=== PATIENT | female | born 1945 | race Caucasian/White ===

== ENCOUNTER 2022-08-03 15:08 | Outpatient (REF) | payer OTHER, SELFPAY ==
--- NOTE | ~2022-08-03 | XR_ITS ---
EXAMINATION: XR FOOT, LEFT CLINICAL INFORMATION: Contusion COMPARISON: None TECHNIQUE: AP, lateral, and oblique views of the left foot. FINDINGS: Large calcaneal spurs. The bones and soft tissues are otherwise normal. No fracture. Alignment is anatomic. Joint spaces are maintained. XR/XR foot LT min 3V IMPRESSION: No acute findings. Calcaneal spurs.
== END 2022-08-03 15:09 | disposition home or self-care (01) ==
LOC: HO.HMGCX 15:08
PROVIDERS: Visit Provider Internal Medicine
DX: S90.32XA Contusion of left foot, initial encounter (principal)
CPT/HCPCS: 73630

== ENCOUNTER 2022-10-26 08:48 | Outpatient (REF) | payer OTHER, SELFPAY ==
[2022-10-26 11:54] LABS: Hematocrit 41.6 % (37.0-47.0); Hemoglobin 13.4 g/dl (12.0-16.0); Mean Corpuscular HGB Conc 32.2 g/dl (31.0-35.0); Mean Corpuscular Hemoglobin 29.6 pg (27.0-33.0); Mean Platelet Volume 10.9 fL (9.4-12.3); Platelet Count 408 X10*3/uL (160-400); Red Blood Count 4.52 X10*6/uL (4.20-5.50); White Blood Count 6.6 X10*3/uL (4.8-10.8)
[2022-10-26 12:15] LABS: Alanine Aminotransferase 14 U/L (0-31); Albumin Level 4.2 g/dL (3.5-5.0); Alkaline Phosphatase 68 U/L (39-117); Anion Gap 12 (12-20); Aspartate Amino Transferase 17 U/L (5-31); Bilirubin Total 0.9 mg/dL (0.0-1.0); Blood Urea Nitrogen 19 mg/dL (9-16); Calcium 9.5 mg/dL (8.4-10.2); Carbon Dioxide 27 mmol/L (22-29); Chloride 106 mmol/L (96-108); Cholesterol 202 mg/dL; Estimated Glomerular Filt Rate 55; Glucose Fasting 118 mg/dL (60-99); HDL Cholesterol 68 mg/dL; LDL Cholesterol Calculated 123 mg/dl; Potassium 4.4 mmol/L (3.3-5.1); Sodium 141 mmol/L (135-145); Triglycerides 59 mg/dL
[2022-10-26 12:43] LABS: TSH reflex Free T4 2.79 uIU/mL (0.32-4.0); Vitamin D 25-OH Total 25.2 ng/mL (>30)
== END 2022-10-26 08:49 | disposition home or self-care (01) ==
LOC: HO.HMGCLDS 08:48
PROVIDERS: PCP Nurse Practitioner Family; Visit Provider Nurse Practitioner Family
DX: Z00.00 Encounter for general adult medical examination without abnormal findings (principal); E55.9 Vitamin D deficiency, unspecified
CPT/HCPCS: 36415; 80053; 80061; 82306; 84443; 85027

== ENCOUNTER 2022-11-09 13:42 | Outpatient (REF) | payer OTHER, SELFPAY ==
--- NOTE | ~2022-11-09 | MM_ITS ---
EXAMINATION: MM SCREENING DIGITAL BREAST TOMOSYNTHESIS, BILATERAL CLINICAL INFORMATION: Screening. Asymptomatic. The lifetime risk of breast cancer based on the Tyrer-Cuzick Model is 2%. COMPARISON: Outside mammography: 07/03/2018, 06/27/2017, 06/21/2016 ([place]) TECHNIQUE: Digital breast tomosynthesis is performed in both the craniocaudal and mediolateral oblique views along with computer-aided detection (CAD). Synthesized 2D images are generated from the tomosynthesis. FINDINGS: There are scattered areas of fibroglandular density (ACR BI-RADS breast composition Category b). Parenchymal pattern is similar to prior outside exams. Fine fibronodular parenchymal pattern with some minor asymmetries are stable. There is no significant mass, developing density, abnormal calcifications, or architectural abnormality. There are some scattered dermal lesions again noted overlying the breasts. The axilla are unremarkable. No significant changes. MM/MM tomosynthesis screening BI IMPRESSION: No mammographic evidence of malignancy. ASSESSMENT: BI-RADS 2: Benign RECOMMENDATION: Routine annual mammography screening. This patient's information was entered into a reminder system with a target due date for their next mammogram.
== END 2022-11-09 13:43 | disposition home or self-care (01) ==
LOC: HO.MAMMO 13:42
PROVIDERS: PCP Nurse Practitioner Family; Visit Provider Nurse Practitioner Family
DX: Z12.31 Encounter for screening mammogram for malignant neoplasm of breast (principal)
CPT/HCPCS: 77063; 77067

== ENCOUNTER 2022-11-16 07:22 | Outpatient (REF) | payer OTHER, SELFPAY ==
[2022-11-16 11:32] LABS: MANUAL DIFF FLAG NO
[2022-11-16 11:49] LABS: Basophils Absolute Auto 0.1 X10*3/uL (0.0-0.2); Basophils Percent Auto 0.7 % (0-2); Eosinophils Absolute Auto 0.2 X10*3/uL (0.0-0.4); Eosinophils Percent Auto 2.2 % (0-4); Hematocrit 38.7 % (37.0-47.0); Hemoglobin 12.4 g/dl (12.0-16.0); Imm Gran Abs Auto 0.01 X10*3/uL (0.00-0.03); Imm Gran Pct Auto 0.1 % (0.0-0.4); Lymphocytes Absolute Auto 2.8 X10*3/uL (1.2-4.9); Lymphocytes Percent Auto 39.8 % (20-40); Mean Corpuscular Hemoglobin 29.8 pg (27.0-33.0); Monocytes Absolute Auto 0.6 X10*3/uL (0.1-1.2); Monocytes Percent Auto 8.8 % (2-11); Neutrophils Absolute Auto 3.4 x10*3/uL (2.0-8.3); Neutrophils Percent Auto 48.4 % (45-73); Platelet Count 324 X10*3/uL (160-400); Red Blood Count 4.16 X10*6/uL (4.20-5.50); Red Cell Distribution Width 14.7 % (11.0-16.0); White Blood Count 6.9 X10*3/uL (4.8-10.8)
== END 2022-11-16 07:23 | disposition home or self-care (01) ==
LOC: HO.HMGCLDS 07:22
PROVIDERS: PCP Nurse Practitioner Family; Visit Provider Nurse Practitioner Family
DX: K92.1 Melena (principal)
CPT/HCPCS: 36415; 85025

== ENCOUNTER 2022-11-18 07:24 | Outpatient (REF) | payer OTHER, SELFPAY ==
[2022-11-18 12:01] LABS: Hematocrit 39.3 % (37.0-47.0); Hemoglobin 12.3 g/dl (12.0-16.0); Mean Corpuscular HGB Conc 31.3 g/dl (31.0-35.0); Mean Corpuscular Hemoglobin 28.7 pg (27.0-33.0); Mean Corpuscular Volume 91.8 fL (80.0-98.0); Mean Platelet Volume 10.8 fL (9.4-12.3); Platelet Count 335 X10*3/uL (160-400); Red Blood Count 4.28 X10*6/uL (4.20-5.50); Red Cell Distribution Width 14.9 % (11.0-16.0); White Blood Count 7.1 X10*3/uL (4.8-10.8)
== END 2022-11-18 07:25 | disposition home or self-care (01) ==
LOC: HO.HMGCLDS 07:24
PROVIDERS: PCP Nurse Practitioner Family; Visit Provider Nurse Practitioner Family
DX: K92.1 Melena (principal)
CPT/HCPCS: 36415; 85027

== ENCOUNTER → 2022-11-30 09:32 | Outpatient (BNVA) | payer OTHER, SELFPAY | PROVIDERS: PCP Nurse Practitioner Family; Visit Provider Physician Assistant | DX: K92.1 Melena (principal) | CPT/HCPCS: 99202 ==

== ENCOUNTER 2022-12-08 10:09 | Outpatient (REF) | payer OTHER, SELFPAY ==
--- NOTE | ~2022-12-08 | MM_ITS ---
EXAMINATION: BONE DENSITOMETRY CLINICAL INDICATION: Screening for osteoporosis. COMPARISON: None (current study represents initial baseline exam). TECHNIQUE: Using a [employer] DXA System (software version: 13.1) manufactured by [employer], dual-energy x-ray absorptiometry was performed of the lumbar spine and left hip. The images are of good technical quality. Summary results are attached. FINDINGS: AP SPINE L1-L4: BMD 1.070 g/cm2, Z-score 0.4, T-score 0.9, normal. LEFT FEMUR, NECK: BMD 0.811 g/cm2, Z-score 0.0, T-score -1.6, osteopenia. LEFT FEMUR, TOTAL: BMD 0.916 g/cm2, Z-score 0.7, T-score -0.7, normal. IDENTIFIED RISK FACTORS: Early menopause, height loss, hysterectomy, right oophorectomy, secondary osteoporosis. HISTORY OF FRACTURE: None listed. MEDICATIONS: Vitamin D. MM/XR DEXA axial skeleton IMPRESSION: 1. DIAGNOSIS: Osteopenia based on the lowest T-score value of -1.6 in the femoral neck applying World Health Organization criteria. 2. 10-YEAR FRACTURE RISK PREDICTION, FRAX: Major osteoporotic fracture (clinical spine, forearm, hip or shoulder) 11.4%. Hip fracture 2.4%. 3. Treatment Recommendations: NOF guidelines recommend consideration for treatment in postmenopausal women and men age 50 and older presenting with the following: -A hip or vertebral (clinical or morphometric) fracture. -T-score less than or equal to -2.5 at the femoral neck or spine after appropriate evaluation to exclude secondary causes. -Low bone mass at the hip or spine and a 10-year fracture probability by FRAX of greater than or equal to 3% for hip fracture or greater than or equal to 20% for major osteoporotic fracture based on the [place] adapted WHO algorithm. 4. Other Recommendations: All treatment decisions require clinical judgment and consideration of individual patient factors, including patient preferences, comorbidities, previous drug use, risk factors not captured in the FRAX model (e.g. frailty, falls, vitamin D deficiency, increased bone turnover, interval significant decline in bone density) and possible under or overestimation of fracture risk by FRAX. Additional medical evaluation for secondary cause of low bone mineral density may be appropriate. FUTURE SCAN RECOMMENDATION: People with diagnosed cases of osteoporosis or at high risk for fracture should have regular bone mineral density tests. For patients eligible for Medicare, routine testing is allowed once every 2 years. The testing frequency can be increased to one year for patients who have rapidly progressing disease, those who are receiving or discontinuing medical therapy to restore bone mass, or have additional risk factors.
== END 2022-12-08 10:10 | disposition home or self-care (01) ==
LOC: HO.MAMMO 10:09
PROVIDERS: PCP Nurse Practitioner Family; Visit Provider Nurse Practitioner Family
DX: Z13.820 Encounter for screening for osteoporosis (principal); Z78.0 Asymptomatic menopausal state; M81.0 Age-related osteoporosis without current pathological fracture
CPT/HCPCS: 77080

== ENCOUNTER → 2022-12-08 12:20 | Day surgery (SDC) | payer OTHER, SELFPAY ==
--- NOTE | 2022-12-07 09:13 | P.CONAN_ITS ---
Documented by User: Yaneth Murray NP 12/07/22 09:14 HPI - Anesthesia Eval Consult details Narrative: 77yo F for Colonoscopy PMFSH Active Problems Active Problems: All Active Problems (Updated 11/30/22 @ 11:40 by Lily Portillo PA-C) Blood in stool (Acute) Posterior left knee pain (Acute) Vitamin D deficiency (Acute) Age-related osteoporosis without current pathological fracture (Acute) Colon cancer screening (Acute) Physical exam, annual (Acute) Breast cancer screening by mammogram (Acute) Osteoporosis screening (Acute) Laboratory tests ordered as part of a complete physical exam (CPE) (Acute) Contusion of foot, left (Acute) Social History [facility] Patient Tobacco Use Status: Former Tobacco user e-Cigarette/Vaping Use: Never Used Use of substances other than those prescribed or required for medical reasons: No Are you DNR?: No Advance Directives: No Advance Directives Information Provided: Yes Recently lost weight without trying: No Nutrition Risks: No Nutritional Risk service: No Current occupational status: employed Current occupation: [employer] Cognitive needs: No Hearing needs: No Vision needs: Yes Meds Allergies Allergy/AdvReac Type Severity Reaction Status Date / Time No Known Allergies Allergy Verified 11/30/22 09:36 Exam Exam Date and Time: December 07, [id number] Pertinent Lab Results Pertinent Lab Results: Laboratory Tests 10/26/22 11/18/22 08:55 07:29 WBC 7.1 Hgb 12.3 Hct 39.3 Plt Count 335 Sodium 141 Potassium 4.4 Chloride 106 Carbon Dioxide 27 BUN 19 H Creatinine 0.99 Assessment and Plan Assessment Anesthesia Assessment: Chart Reviewed Documented by User: Nisha Pichardo MD 12/08/22 13:52 PMFSH Family History Family history of problems with anesthesia: No Surgical History History of Problems with Anesthesia: No Social History Social History Housing: Condominium Patient Tobacco Use Status: Former Tobacco user e-Cigarette/Vaping Use: Never Used Use of substances other than those prescribed or required for medical reasons: No Are you DNR?: No Advance Directives: No Advance Directives Information Provided: Yes Recently lost weight without trying: No Nutrition Risks: No Nutritional Risk service: No Current occupational status: employed Current occupation: [employer] Cognitive needs: No Hearing needs: No Vision needs: Yes Meds Allergies Allergy/AdvReac Type Severity Reaction Status Date / Time No Known Allergies Allergy Verified 11/30/22 09:36 Exam Airway Mallampati Class: II TM Dist: >3cm Neck ROM: Full Heart: rrr Lungs: cta Assessment and Plan Assessment Anesthesia Assessment: Anesthesia Plan Discussed Final Anesthetic Review Family History of Problems with Anesthesia: No History of Problems with Anesthesia: No NPO: Yes ASA Class: II Final Preanesthetic Review: No Changes in Pt Med Stat, Meds/Allgs Chart Reviewed and Consent Obtained/Reviewed Patient Risk: Intermediate Procedure Risk: Intermediate Anesthetic Plan Anesthetic Plan: MAC: Disposition: Standard PACU
[2022-12-08 13:09] VITALS: BMI 29.3
[2022-12-08 13:15] VITALS: BP 168/135; PULSE 84; RESP 16; TEMP 36.7; O2SAT 97
[2022-12-08] MEDS: Lactated Ringers 1,000 ML 100 ML IVCONT (13:31)
--- NOTE | 2022-12-08 14:23 | MHC.SHP ---
Pre-Procedural Eval Section A Date of Service: 12/08/22 Section B Chief Complaint: rectal bleeding Relevant Family History (Specify if Yes): No Relevant Social History: None Present Medications: see Short Stay Collaborative assessment Medical History: Significant History (vit d def) History of Previous Operations: No relevant previous surgery Allergies: Allergies Allergy/AdvReac Type Severity Reaction Status Date / Time No Known Allergies Allergy Verified 11/30/22 09:36 Review of Systems Sugical H&P ROS: Negative: Constitution, Cardiovascular, Respiratory, Neurological, Psychiatric, Hem-Onc, Allergic/Immunologic, Gastrointestinal, Genitourinary, Musculoskeletal, Integumentary, Endocrine and Eyes/Ears/Nose/Throat Exam Surgical H&P Exam: Normal: HEENT, Normal: Heart, Normal: Lungs, Normal: Extremities, Normal: Abdomen, Normal: Skin and Normal: Neurological Plan Diagnosis/Plan: Unchanged I have reviewed the history and physical and performed a pertinent physical examination on my patient. No changes have occurred unless specified. Time Spent With Patient Time: Total time managing care of this patient today ____ minutes.
--- NOTE | 2022-12-08 14:24 | P.OP_ITS ---
Operative Note Operative Note Date of Service: 12/08/22 Narrative: Operative Information Procedure Description: Colonoscopy Indication: rectal bleeding Anesthesia: MAC COLONOSCOPY Instrument: Olympus variable stiffness pediatric scope 190L and upper endoscope Colonoscopy Monitoring: Vital signs and clinical assessment, continuous EKG monitoring, Pulse oximetry, Carbon Dioxide monitoring and blood pressure monitoring were done throughout the procedure. Procedure: The patient was placed in the left lateral decubitis position and pre-procedure medications were administered. After a digital rectal examination of the ano-rectum, the video colonoscope was inserted into the rectum and advanced through the colon to the cecum/TI. The colonoscope was slowly withdrawn in a retrograde panoramic fashion and the colon mucosa was carefully examined including a retroflexed view of the rectum. Findings and interventions are described below. Procedure Difficulty: very difficult -initially started with pediatric colonoscope then changed over to an upper due to very tight and swollen area in sigmoid Findings: Terminal Ileum-not reached Cecum:not reached Ascending Colon: 8 mm sessile polyp removed with cold snare and not retrieved , several diverticula seen Transverse Colon -normal Descending Colon: diverticulosis Sigmoid Colon: severe diverticulsois with swollen, congested mucosa and erythema, bx taken Rectum: Retroflexion with small internal hemorrhoids, grade I Anorectum - normal Colon preparation: Four States Bowel Preparation Scale Right colon; 2 Transverse colon: 3 Left colon; 3 (0 = Unprepared colon segment with mucosa not seen due to solid stool that ca nnot be cleared. 1 = Portion of mucosa of the colon segment seen, but other areas of the colon segment not well seen due to staining, residual stool and/or opaque liquid. 2 = Minor amount of residual staining, small fragments of stool and/or opaque liquid, but mucosa of colon segment seen well. 3 = Entire mucosa of colon segment seen well with no residual staining, small fragments of stool or opaque liquid) Impression and Post Procedure Diagnosis: severe diverticulosis possible SCAD internal hemorrhoids colon polyp Plan: High fiber diet leaflet Avoid straining at stool, epsom salts and sitz bath, anusol supps or cream CT colonography\ might consider trial of meslamine enemas for few months and repeat colonoscopy as well Above findings were reviewed with the patient and relevant handouts were provided if indicated.
[2022-12-08 15:40] VITALS: BP 117/59; PULSE 75; RESP 16; TEMP 37.5; O2SAT 95
[2022-12-08 15:56] VITALS: BP 143/66; PULSE 66; RESP 16; TEMP 36.2; O2SAT 97
== END | disposition home or self-care (01) ==
PROVIDERS: PCP Nurse Practitioner Family; Visit Provider Internal Medicine Gastroenterology
PROC: 0DJD8ZZ Inspection of Lower Intestinal Tract, Via Natural or Artificial Opening Endoscopic (ICD-10-PCS; CPT 45378; principal; 2022-12-08 14:20)
DX: K62.5 Hemorrhage of anus and rectum (principal); K63.5 Polyp of colon; K52.9 Noninfective gastroenteritis and colitis, unspecified; K57.30 Diverticulosis of large intestine without perforation or abscess without bleeding; K64.0 First degree hemorrhoids
CPT/HCPCS: 45385; 88305

== ENCOUNTER → 2022-12-21 12:45 | Outpatient (BNVA) | payer OTHER, SELFPAY | PROVIDERS: PCP Nurse Practitioner Family; Visit Provider Physician Assistant ==

== ENCOUNTER 2023-01-31 09:16 | Outpatient (REF) | payer OTHER, SELFPAY ==
--- NOTE | ~2023-01-31 | CT_ITS ---
EXAMINATION: CT COLONOGRAPHY CLINICAL INFORMATION: Incomplete colonoscopy. Colon edema. Diverticulosis. COMPARISON: None available. TECHNIQUE: Bowel preparation: Suboptimal. Stool tagging with Gastrografin and barium: Stool tagging was not used. Colonic distention: CO2 mechanical insufflator used via enema tube with incomplete distention. Acquisition: Low dose imaging targeted to colonic was performed in the supine and prone positions. Procedure: No complication reported. Review: The acquired images were reviewed in axial, coronal and sagittal planes. Additional 3-D fly through images were reviewed at an independent workstation. This CT examination was performed using dose optimization techniques as appropriate, variously including the following: *Automated exposure control *Adjustment of mA and/or kV according to patient size (this includes techniques or standardized protocols for targeted exams where dose is matched to indication/reason for exam; i.e. extremities or head) *Use of iterative reconstruction technique DLP: 448 mGy-cm FINDINGS: Colonic findings: There is a large amount of material within the colon. In many segments this occupies the entire lumen. This precludes assessment for small or moderate-sized abnormalities. There is colonic diverticulosis. No convincing fixed area of narrowing. Non-colonic findings: There are no suspicious noncolonic findings. CT/CT colonography IMPRESSION: Limited study. Large amount material within the colon precludes assessment for polyps or small/moderate sized masses. Colonic diverticulosis.
== END 2023-01-31 09:17 | disposition home or self-care (01) ==
LOC: HO.CT 09:16
PROVIDERS: PCP Nurse Practitioner Family; Visit Provider Internal Medicine Gastroenterology
DX: Z12.11 Encounter for screening for malignant neoplasm of colon (principal); R60.0 Localized edema; K57.90 Diverticulosis of intestine, part unspecified, without perforation or abscess without bleeding
CPT/HCPCS: 74261

== ENCOUNTER → 2023-03-01 09:54 | Outpatient (BNVA) | payer OTHER, SELFPAY | PROVIDERS: PCP Nurse Practitioner Family; Visit Provider Physician Assistant ==

== ENCOUNTER → 2023-03-01 09:54 | Outpatient (AMB) | payer OTHER, SELFPAY ==
[2023-03-01 09:54] VITALS: BP 124/74; PULSE 74; BMI 29.7
--- NOTE | 2023-03-01 09:54 | MHC.OFFVIS ---
Intake Vital Signs 03/01/23 09:54 Height 5 ft 4 in Weight 173 lb BMI 29.7 BP 124/74 Blood Pressure Location Lt brachial Position Sitting Pulse 74 Intake Visit Reasons: discuss colonoscopy prep Intake Note: Patient follow up for discuss colonoscopy prep. Patient do not wanted to discuss with me her complain, she will talk with provider about her problems ??? Medical Oncology Physician Required: No Accompanied by: Self / Same As Patient Allergies No Known Allergies Allergy (Verified 12/21/22 12:46) HPI HPI Comments History of Present Illness Details A 77 y/o F- f/u Abnormal colonoscopy- inadequate prep- sent for CT colonography- prep not adequate but able to see- no masses Stools seem to be hard- she does not have a very good diet. Has some cramping- get better after BM She is very stressed- still works- No N/V /D rectal bleed , fever or chills Reviewed CT report PFSH Surgical History Hx of colonoscopy Social History Housing: Condominium Patient Tobacco Use Status: Former Tobacco user e-Cigarette/Vaping Use: Never Used service: No Current occupational status: employed Current occupation: [employer] Cognitive needs: No Hearing needs: No Vision needs: Yes Review of Systems Const All systems reviewed & are unremarkable except as noted in HPI and below Card Denies chest pain and Denies dyspnea Resp Denies dyspnea GI Denies hematochezia, Reports constipation, Reports GI cramping, Denies heartburn, Denies nausea and Denies vomiting Psych Reports anxiety Physical Exam Vital Signs: Last Vital Signs Pulse 74 03/01/23 09:54 BP 124/74 03/01/23 09:54 BMI result Body Mass Index 29.7 Const General: cooperative, healthy appearing and comfortable Eyes Sclerae: sclerae normal Resp Effort & Inspection: normal respiratory effort and able to speak in complete sentences Extrem General: Yes full ROM Psych Appearance: grossly normal and well kempt Mental Status: mental status grossly normal Speech and movement: Normal speech and movement present and Clear speech present Affect: normal affect and Anxious affect present Thought process: Normal thought process present Thought content: Normal thought content present Insight: Good insight present (Psych) Judgement: Good judgement present (Psych) Results Reviewed Results Reviewed: mpression and Post Procedure Diagnosis: severe diverticulosis possible SCAD internal hemorrhoids colon polyp Plan: High fiber diet leaflet Avoid straining at stool, epsom salts and sitz bath, anusol supps or cream CT colonography\ might consider trial of meslamine enemas for few months and repeat colonoscopy as well Above findings were reviewed with the patient and relevant handouts were provided if indicated. Name:Thuy Chang Age/Sex: 77/F Attending: Jessee Alejandro MD : 1945 Submitted by: Jessee Alejandro MD Copies to: LexieVladimir [facility] MR #: [id number] ? Status: REG [facility] [place] Collected: 12/08/22 Location: [facility] Received: 12/09/22 Diagnosis Colon, sigmoid, biopsy:? Colonic mucosa with prominent lymphoid aggregate; otherwise within normal limits. Clinical History Pre-Op Dx:? Rectal bleeding Post-Op Dx: Polyp ascending colon (not recovered), incomplete colonoscopy, sigmoid colitis, diverticulosis Assessment & Plan Assessment & Plan (1) Abnormal colonoscopy: Comment: mpression and Post Procedure Diagnosis: severe diverticulosis possible SCAD internal hemorrhoids colon polyp Plan: High fiber diet leaflet Avoid straining at stool, epsom salts and sitz bath, anusol supps or cream CT colonography\ might consider trial of meslamine enemas for few months and repeat colonoscopy as well CT/CT colonography IMPRESSION: Limited study. Large amount material within the colon precludes assessment for polyps or small/moderate sized masses. Colonic diverticulosis. Code(s): R93.3 - Abnormal findings on diagnostic imaging of other parts of digestive tract Plan Colonoscopy- August 2023- 6 months- Dr. ALEJANDRO extended prep Miralax bid x 5 days prior to prep day= MG split Orders: Orders Colonoscopy - GI Use Only 6 Months R93.3 - Abnormal findings on diagnostic imaging of other parts of digestive tract Medications: New polyethylene glycol 3350 (Miralax) 17 grams PO DAILY 510 grams 6RF Patient Instructions: Very pleasant- 77 y/o abnormal colonoscopy followed by CT colon- inadequate prep Stool pattern- irregular-HFD- Will trial miralx as well as fiber. After review and discussion of colonoscopy- will repeat Repeat colonoscopy- 6 months- Dr. ALEJANDRO- Coding Level of Care Code Est Pt Level 3 (76593) Diagnoses Abnormal colonoscopy R93.3 Time Spent (min) 30
== END ==
PROVIDERS: PCP Nurse Practitioner Family; Visit Provider Physician Assistant
DX: R93.3 Abnormal findings on diagnostic imaging of other parts of digestive tract (principal)
CPT/HCPCS: 99213

== ENCOUNTER 2023-05-17 14:53 | Outpatient (AMB) | payer OTHER, SELFPAY ==
[2023-05-17 14:57] VITALS: BP 128/74; PULSE 83; RESP 12; TEMP 36.4; O2SAT 99; BMI 30.1
--- NOTE | 2023-05-17 14:57 | A.OFFPC_ITS ---
Vital Signs 05/17/23 14:57 Height 5 ft 4 in Weight 175 lb 8 oz BMI 30.1 BP 128/74 Blood Pressure Location Lt brachial Position Sitting Respiration 12 Pulse 83 Pulse Source Pulse Oximeter Temp 97.6 F Temp Source Temporal Artery Scan Pulse Oximetry (%) 99 Oxygen Delivery Method Room Air Intake Visit Reasons: 6 months health maintenance Intake Note: Patient states that she recently developed a cough that gets worse at night when patient is laying down. Patient states that it is a dry cough that doesn't carry any phlegm or congestion in nose or throat. 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 Accompanied by: Self / Same As Patient Allergies No Known Allergies Allergy (Verified 05/17/23 15:12) Medication List - Last Reconciled 05/17/23 by Vladimir Owen CNP cholecalciferol (vitamin D3) 25 mcg PO DAILY 90 days methylcellulose (laxative) (Citrucel) 500 mg PO BID Tobacco use date assessed: 11/09/22 Fall risk assessment: 1 Fall in past year Last assessed Fall Risk: 05/17/23 Dental Screening Dental Screen Date: 05/17/23 Did you have a dental visit in the last 12 months?: Yes Did you have a dental problem in the last 6 months where you did not have access to dental care?: No Was dental information given to patient?: Patient has dentist HPI HPI Comments History of Present Illness Details 77-year-old female presents for [facility] follow-up. She had a complete physical exam in September. She was last evaluated in the office for blood in stool in November and was referred to Gastroenterology. She has past medical history significant for vitamin-D deficiency and osteopenia. She is on vitamin D3 which she admits to taking as prescribed. She reports h/o nonproductive cough for the past 2 days. She as been taking robitussin with some relief. Denies chest pain, difficulty breathing, fever, chills, body aches, fatigue, or weakness. No sick contacts. She had the colonoscopy done in December; incomplete colonoscopy: Diverticulosis. Internal hemorrhoids. Colon polyp. CT colonography was done in January: Limited study. Large amount material within the colon precludes assessment for polyps or small/moderate sized masses. She notes that she has a follow up colonoscopy in August,. Her last mammogram was in November: Normal. Her last DEXA scan was in December: Osteopenia. She is currently on vitamin-D. [facility], [facility] Medical History (Updated 05/17/23 @ 15:48 by Vladimir Owen CNP) No pertinent past medical history Surgical History Hx of colonoscopy Social History [facility] Patient Tobacco Use Status: Former Tobacco user e-Cigarette/Vaping Use: Never Used service: No Current occupational status: employed Current occupation: [employer] Cognitive needs: No Hearing needs: No Vision needs: Yes Questionnaire Thrive Questionnaire Date Thrive assessed: 09/14/22 PACO-7 AMB Questionnaire PACO-7 Date PACO - 7 assessed: 09/14/22 Source: Developed by Drs. Olman Ordonez, Sharita Hidalgo, Phoenix Pierre and colleagues, with an educational ana from [employer]. Review of Systems Const Details: Const Denies chills, Denies fatigue, Denies fever(s), Denies headache(s) and Denies weakness ENT Denies dizziness and Denies headache(s) Card Denies chest pain, Denies lightheadedness, Denies dyspnea and Denies other (Palpitations) Resp Reports cough, Denies dyspnea, Denies wheezing and Denies other ( shortness of breath) GI Denies abdominal pain, Denies melena, Denies hematochezia, Denies change in bowel habits, Denies dyspepsia and Denies nausea Denies hematuria and Denies dysuria Musc Denies abnormal gait, Denies myalgias, Denies arthralgias, Denies numbness and Denies tingling Skin/Breast Denies rash, Denies unusual bruising and Denies wounds Neuro Denies abnormal gait, Denies dizziness, Denies headache(s), Denies memory loss, Denies numbness, Denies Sensory deficit (Neuro), Denies tingling and Denies weakness Psych Denies anxiety, Denies depression, Denies memory loss Endo Denies cold intolerance, Denies fatigue, Denies heat intolerance, Denies polydipsia and Denies polyuria Aller/Immun Denies wheezing Physical exam (Primary Care) Vital Signs: Last Vital Signs Temp 97.6 F 05/17/23 14:57 Pulse 83 05/17/23 14:57 Resp 12 05/17/23 14:57 BP 128/74 05/17/23 14:57 Pulse Ox 99 05/17/23 14:57 Oxygen Delivery Method Room Air 05/17/23 14:57 BMI result Body Mass Index 30.1 Tobacco/Smoking Status: Tobacco use Status Tobacco use date assessed 11/09/22 05/17/23 15:09 Patient Tobacco Use Status Former Tobacco user 05/17/23 15:09 e-Cigarette/Vaping Use Never Used 05/17/23 15:09 Thrive Assessment: Date of Thrive Assessment Date Thrive assessed 09/14/22 05/17/23 15:09 Const Other: General: no acute distress and well developed Nutritional Appearance: well nourished Orientation/consciousness: patient oriented x3 HENMT Head: Yes normocephalic and Yes atraumatic Eyes General: appearance normal, both eyes and all related structures Pupils: Equal, round and reactive pupils present EOM: EOMs intact bilaterally Resp Effort & Inspection: normal respiratory effort Auscultation: clear to auscultation bilaterally Cardio Rate: regular rate Rhythm: regular rhythm Heart sounds: S1 normal heart sound present, S2 normal heart sound present, no gallops, no murmurs and no rubs GI Palpation (GI): No Abdominal aortic bruit present, Soft to palpation, nontender, No hepatosplenomegaly present and No Rebound tenderness present Auscultation: normal bowel sounds General: Yes no CVA tenderness Back/Spine/Pelvis Back: no CVA tenderness Cervical Spine: cervical ROM normal and No Cervical spine tenderness Thoracic/Lumbar Spine: thoraco-lumbar ROM normal, No pain with thoraco-lumbar ROM, No thoracic spinal tenderness and No lumbar spinal tenderness Extrem General: Yes normal to inspection, No edema and No calf tenderness Skin General: warm and dry. Normal skin color. Normal skin turgor Neuro General: patient oriented x3, gait normal and no focal neuro deficit Cranial nerves: Yes Equal, round and reactive pupils present Cognition (Neuro): normal cognition Gait exam (Neuro): Normal gait present Sensory Exam: No Sensory deficit (Neuro) Psych Appearance: grossly normal Affect: normal affect Attitude: cooperative Thought process: Normal thought process present Assessment and Plan Assessment & Plan (1) Cough: Code(s): R05.9 - Cough, unspecified Qualifiers: Cough type: acute Qualified Code(s): R05.1 - Acute cough Plan: Likely viral illness though possibly allergies. No exam evidence of bacterial infection Viral illness There is no antibiotic medication for viruses.? They must run their course.? Mos t average 5-7 days but 7-10 days is not uncommon and up to 14 days is still possible.? A cough is often the last symptom to resolve and this can last for weeks in some cases. Rest Hydrate well -? Drink plenty of fluids.? Especially water. Tylenol or ibuprofen for muscle aches, headache, fever/discomfort Robitussin as needed Zyrtec as prescribed Return for new or worsening symptoms Verbalized understanding and agreed with treatment plan. (2) Vitamin D deficiency: Code(s): E55.9 - Vitamin D deficiency, unspecified Plan: Continue to take vitamin D3 as prescribed Will repeat vitamin-D levels when she gets routine blood work for next physical exam Will make changes as needed Verbalized understanding and agreed with treatment plan. (3) Osteopenia: Code(s): M85.80 - Other specified disorders of bone density and structure, unspecified site Qualifiers: Osteopenia location: femoral neck Laterality: left Qualified Code(s): M85.852 - Other specified disorders of bone density and structure, left thigh Plan: She had a DEXA scan in December which revealed osteopenia Plan as above (4) Laboratory tests ordered as part of a complete physical exam (CPE): Code(s): Z00.00 - Encounter for general adult medical examination without abnormal findings Plan: Fasting labs ordered as part of a complete physical exam. Advised to fast for at least 10 hours before getting labs drawn. May drink water Verbalized understanding and agreed with treatment plan. Orders: Orders Complete Blood Count Auto Diff 4 Months Z00.00 - Encounter for general adult medical examination without abnormal findings Lipid Panel 4 Months Z00.00 - Encounter for general adult medical examination without abnormal findings Comprehensive [place]. Panel Fast 4 Months Z00.00 - Encounter for general adult medical examination without abnormal findings TSH reflex Free T4 4 Months Z00.00 - Encounter for general adult medical examination without abnormal findings Vitamin D 25-OH Total 4 Months Z00.00 - Encounter for general adult medical examination without abnormal findings Medications: New cetirizine (Zyrtec) 10 mg PO DAILY 30 days 30 tabs 1RF Coding Level of Care Code Est Pt Level 3 (99495) Diagnoses Acute cough R05.1 Cough type: acute Vitamin D deficiency E55.9 Osteopenia of neck of left femur M85.852 Osteopenia location: femoral neck Laterality: left Laboratory tests ordered as part of a complete physical exam (CPE) Z00.00
== END 2023-05-17 15:38 | disposition home or self-care (01) ==
PROVIDERS: PCP Nurse Practitioner Family; Visit Provider Nurse Practitioner Family
DX: R05.1 Acute cough (principal); E55.9 Vitamin D deficiency, unspecified; M85.852 Other specified disorders of bone density and structure, left thigh
CPT/HCPCS: 99213; 99214

== ENCOUNTER 2023-05-20 11:00 | Outpatient (AMB) | payer OTHER, SELFPAY ==
[2023-05-20 11:41] VITALS: BP 200/100; PULSE 89; O2SAT 98
--- NOTE | 2023-05-20 11:41 | AM.OFFWIN_ITS ---
Intake Vital Signs 05/20/23 11:41 BP 200/100 H Pulse 89 Pulse Source Pulse Oximeter Pulse Oximetry (%) 98 Oxygen Delivery Method Room Air Intake Visit Reasons: est/blood pressure issues/high?(lobby) Patient Tobacco Use Status: Former Tobacco user Allergies No Known Allergies Allergy (Verified 05/17/23 15:12) HPI HPI Comments History of Present Illness Details This is a 77-year-old who presents to the office today for sick visit. Patient complaining of feeling generally unwell. Patient states she woke up this morning and had the feeling that she had to go to the hospital. She took her blood pressure upon waking up in her blood pressure was high. She denies any history of high blood pressure. She is very vague in her symptoms but she denies any chest pain, shortness of breath, visual disturbances, headaches, nausea / vomiting, facial asymmetry, or slurred speech. [facility] Medical History (Updated 05/17/23 @ 15:48 by Vladimir Owen CNP) No pertinent past medical history Surgical History Hx of colonoscopy Social History [facility] Patient Tobacco Use Status: Former Tobacco user e-Cigarette/Vaping Use: Never Used service: No Current occupational status: employed Current occupation: [employer] Cognitive needs: No Hearing needs: No Vision needs: Yes Review of Systems Const All systems reviewed & are unremarkable except as noted in HPI and below Reports no additional complaints Eyes Reports no additional complaints ENT Reports no additional complaints Card Reports no additional complaints Resp Reports no additional complaints GI Reports no additional complaints Reports no additional complaints Musc Reports no additional complaints Skin/Breast Reports system reviewed and no additional complaints, except as documented Neuro Reports no additional complaints Psych Reports no additional complaints Endo Reports no additional complaints Mika/Lymph Reports no additional complaints Aller/Immun Reports no additional complaints Physical Exam Vital Signs: Last Vital Signs Pulse 89 05/20/23 11:41 BP 200/100 H 05/20/23 11:41 Pulse Ox 98 05/20/23 11:41 Oxygen Delivery Method Room Air 05/20/23 11:41 Const Other: Vital signs reviewed. Constitutional: Non-toxic appearing. No acute distress. Well-developed and well-nourished. HEENT: Normocephalic and atraumatic. Skin: Warm and dry. No rashes or lesions noted. Neck: Full and painless range of motion. No cervical lymphadenopathy. Cardio: Regular rate and rhythm. No murmurs, gallops, or rubs. No lower extremity edema. No JVD. Pulmonary: No respiratory distress. No accessory muscle usage. Clear to auscultation bilaterally without wheezing, crackles, or rhonchi. Gastrointestinal: Soft, nontender, and nondistended in all 4 quadrants. Normoactive bowel sounds in all 4 quadrants. Musculoskeletal: Normal range of motion in joints throughout the body. No deformity or other signs of injury. Neuro: Alert and oriented x4. Cranial nerves 2-12 grossly intact. Patient is extremely unsteady on her feet. Psych: Normal mood and affect. Office Procedures EKG Details: normal sinus rhythm at 78 beats per minute. T-wave inversions in leads V1 but otherwise no ST or T-wave changes. QTC is 440 milliseconds. 25143-[id number], Complete Assessment & Plan Assessment & Plan (1) Hypertensive urgency: Code(s): I16.0 - Hypertensive urgency Plan This is a 77-year-old female who presented to the walk-in clinic complaining of very vague symptoms but she is extremely unsteady on her feet. Patient was found have a blood pressure of 200/100. An EKG was performed, which showed normal sinus rhythm at 78 beats per minute with T-wave inversions in V1 but otherwise no acute ST T wave changes. Patient is neurologically intact with the exception of unsteadiness. Patient was seen by her PCP 3 days ago at which time her blood pressure was well within normal limits at 124/70. Given this acute rise in blood pressure, I am concerned that patient could be having an acute cerebrovascular or cardiovascular event. Patient is going directly to the emergency room. I recommend she go via ambulance but patient adamantly declined and wishes for her to drive her via private car. Patient is alert and oriented x4 and my opinion I believe that she has the competence to make her own medical decisions. She is aware of the risks of not going by ambulance including but not limited to cerebrovascular events, cardiovascular events, or even . Patient verbalizes her understanding and she is in agreement with the plan. Patient's was at bedside and he was also updated on the plan of care and he was made aware of the risks as well. I called [facility] Emergency Room and made them aware of patient's arrival. Orders: Orders AMB EKG-In Office Today I10 - Essential (primary) hypertension Coding Level of Care Code Est Pt Level 3 (33403) Diagnoses Hypertensive urgency I16.0 CPT Codes EKG - CPT: 44097-[id number], Complete ([id number])
== END 2023-05-20 12:37 | disposition home or self-care (01) ==
PROVIDERS: PCP Nurse Practitioner Family; Visit Provider Physician Assistant Medical
DX: I16.0 Hypertensive urgency (principal)
CPT/HCPCS: 93000; 99213

== ENCOUNTER 2023-05-20 12:12 | Emergency (ER) | payer OTHER, SELFPAY ==
--- NOTE | ~2023-05-20 | CT_ITS ---
EXAMINATION: CT HEAD WITHOUT CONTRAST CLINICAL INFORMATION: Headache COMPARISON: None available. TECHNIQUE: Contiguous axial imaging was performed from the skull base to vertex without intravenous administration of contrast. This CT examination was performed using dose optimization techniques as appropriate, variously including the following: *Automated exposure control *Adjustment of mA and/or kV according to patient size (this includes techniques or standardized protocols for targeted exams where dose is matched to indication/reason for exam; i.e. extremities or head) *Use of iterative reconstruction technique DLP: 570 mGy-cm FINDINGS: Mild atrophy and periventricular white matter changes. No evolving infarct, mass lesion, mass effect, midline shift, hemorrhage or extra-axial fluid collections. Intraorbital structures are unremarkable. Sinuses and mastoids are free of disease. Bony structures are intact. Soft tissues are unremarkable. CT/CT head/brain wo IV con IMPRESSION: Chronic mild small vessel ischemia and volume loss. No acute intracranial pathology.
[2023-05-20 12:19] VITALS: BP 239/137; PULSE 85; RESP 18; TEMP 37.2; O2SAT 95; BMI 30.6
--- NOTE | 2023-05-20 12:23 | ECG_ITS ---
Test Reason : HYPERTENSION Blood Pressure : / mmHG Vent. Rate : 077 BPM Atrial Rate : 077 BPM P-R Int : 152 ms QRS Dur : 082 ms QT Int : 386 ms P-R-T Axes : 062 003 058 degrees QTc Int : 436 ms Normal sinus rhythm Normal ECG No previous ECGs available Referred By: Sonny Murrieta Electronically Signed By:TIMA SMART MD
--- NOTE | 2023-05-20 12:24 | ED.GENADULT ---
HPI - General Adult General Chief complaint: General Medical Stated complaint: HBP Time Seen by Provider: 05/20/23 13:07 Source: patient and family Mode of arrival: ambulatory Limitations: no limitations History of Present Illness HPI narrative: 77-year-old female presents to emergency department complaining of elevated blood pressure. Patient woke up this morning and just felt off patient denies any falls she denies chest pain she denies changes in vision double vision blurry vision she denies dizziness she denies being unstable on her feet headache or nausea vomiting diarrhea recent illness. Patient went to Urgent Care was found have a blood pressure in the 240 systolic and was sent here for further evaluation. She did see her primary care doctor earlier this week she has never been on any blood pressure medications she denies any changes in medications or any recent or new stressors denies falling or hitting her head. Related Data Previous Rx's Medication Instructions Recorded cholecalciferol (vitamin D3) 25 25 mcg PO DAILY 90 days #90 tabs 10/26/22 mcg (1,000 unit) tablet methylcellulose (laxative) 500 mg 500 mg PO BID #60 tabs 12/21/22 tablet (Citrucel) cetirizine 10 mg tablet (Zyrtec) 10 mg PO DAILY 30 days #30 tabs 05/17/23 lisinopril 5 mg tablet 5 mg PO DAILY #60 tabs 05/20/23 Allergies Allergy/AdvReac Type Severity Reaction Status Date / Time No Known Allergies Allergy Verified 05/20/23 12:25 Review of Systems Review of Systems: Review of systems: General: Patient denies any fever chills recent illness or falls Musculoskeletal: Denies back pain or body aches or other injuries HEENT: denies headache, runny nose, ear pain Respiratory: denies shortness of breath, cough Cardiovascular: no chest pain or palpitations : denies dysuria, frequency Abdomen: no nausea vomiting denies abdominal pain Extremities: no swelling, no pain Skin: no diaphoresis Yes all other systems are reviewed and are negative [facility] Past Medical History Medical History (Updated 05/20/23 @ 13:42 by Oskar Buenrostro DO) No pertinent past medical history Surgical History Hx of colonoscopy Social History Social History Housing: Condominium Alcohol intake: current Patient Tobacco Use Status: Former Tobacco user Smoked in Last 30 Days: No e-Cigarette/Vaping Use: Never Used Use of substances other than those prescribed or required for medical reasons: No Advance Directives: No service: No Current occupational status: employed Current occupation: [email or web address] Cognitive needs: No Hearing needs: No Vision needs: Yes Physical Exam ED Vital Signs: Vital Signs - 24 hr 05/20/23 12:19 05/20/23 12:52 05/20/23 13:19 Temperature 99.0 F 98.0 F Pulse Rate 85 76 75 Respiratory Rate 18 16 16 Blood Pressure 239/137 H 208/95 H 200/98 H Pulse Oximetry 95 99 98 Oxygen Delivery Method Room Air Room Air Room Air 05/20/23 14:09 Temperature Pulse Rate 59 Respiratory Rate 16 Blood Pressure 201/93 H Pulse Oximetry 96 Oxygen Delivery Method Room Air BMI result Body Mass Index 30.6 Neurological exam: CN II- XII tested. Patient is alert and oriented to person place and time. Patient has no dysphagia or dysarthia, denies good vision in all four vision doss no nystagmus on exam, good strength to upper and lower extremities with normal reflexes to brachioradialis, wrist, patella and achilles. Negative romberg, good finger to nose and heel to burton. General: Well-appearing well-nourished in no signs of distress HEENT: Normocephalic atraumatic Neck: No signs of JVD, no masses no tenderness or lymphadenopathy Cardiovascular: Regular rate and rhythm Respiratory: Clear to auscultation bilaterally Abdomen: Soft nontender no masses Extremities: Normal pedal pulses no signs of edema Skin: Dry warm no rashes Back: No tenderness full ROM Course Course Course Narrative: RME- 77 year old female presents for evaluation of high blood pressure. She denies any history of hypertension. She woke up at 06:30 this morning and felt well. She went back to sleep and woke up at 09:00 and felt off. She complains of feeling weak and dizzy. She went to urgent care and found her BP to be 240/140, so she was sent here. Denies headache, focal weakness, difficulty with speech. NIH stroke score 0. She ambulates with a steady, even gait. Patient brought straight back to room 14. plan for labs, ekg, ct brain Reevaluation(s) Reevaluation #1: 6027 I will send the patient home with PCp follow up. Medications Administered Discontinued Medications Generic Name Dose Route Start Last Admin Trade Name Sheryl PRN Reason Stop Dose Admin Hydralazine HCl 10 mg 05/20/23 13:38 05/20/23 14:10 Hydralazine Hcl 20 Mg/Ml Vial IVPUSH 05/20/23 13:39 10 mg ONCE ONE Administration Protocol Labetalol HCl 200 mg 05/20/23 13:37 05/20/23 14:10 Labetalol Hcl 200 Mg Tablet PO 05/20/23 13:38 200 mg ONCE ONE Administration Protocol Medical Decision Making Medical Decision Making MDM Narrative: patient comes from Urgent Care had normal labs negative CT scan and completely normal workup with recent follow-up with her doctor I do not think this is acute surgical issue I do not think this patient needs admission or further workup I did try to reach out to her primary care doctor times to unsuccessfully I think patient is safe to go home follow up with her doctor I did give a dose of labetalol here and have the patient follow-up with Dr. Santana as possible. Differential Diagnosis Differential Diagnoses: The differential diagnosis associated with the presentation includes Uncontrolled hypertension electrolyte abnormality intracranial hemorrhage dehydration anemia Lab Data MDM Lab Attestation statement: I reviewed the patient's lab results. 05/20/23 12:47 05/20/23 12:23 Labs: Lab Results 05/20/23 05/20/23 Range/Units 12:23 12:47 WBC 7.5 (4.8-10.8) X10*3/uL RBC 4.58 (4.20-5.50) X10*6/uL Hgb 14.0 (12.0-16.0) g/dl Hct 41.7 (37.0-47.0) % MCV 91.0 (80.0-98.0) fL MCH 30.6 (27.0-33.0) pg MCHC 33.6 (31.0-35.0) g/dl RDW 13.4 (11.0-16.0) % Plt Count 299 (160-400) X10*3/uL MPV 10.3 (9.4-12.3) fL Immature Gran % (Auto) 0.4 (0.0-0.4) % Neut % (Auto) 65.9 (45-73) % Lymph % (Auto) 25.1 (20-40) % Mineral % (Auto) 7.6 (2-11) % Eos % (Auto) 0.5 (0-4) % Baso % (Auto) 0.5 (0-2) % Lymph # (Auto) 1.9 (1.2-4.9) X10*3/uL Mineral # (Auto) 0.6 (0.1-1.2) X10*3/uL Eos # (Auto) 0.0 (0.0-0.4) X10*3/uL Baso # (Auto) 0.0 (0.0-0.2) X10*3/uL Abs Immat Gran (auto) 0.03 (0.00-0.03) X10*3/uL Absolute Neuts (auto) 4.9 (2.0-8.3) x10*3/uL Absolute Nucleated RBC 0.000 (0.0-0.012) X10*3/uL Nucleated RBC % (auto) 0.0 (0.0-0.2) /100WBC PT 11.1 (11.1-13.3) SEC INR 0.9 (0.9-1.1) APTT 30.5 (26.0-36.4) SEC Sodium 136 (135-145) mmol/L Potassium 3.9 (3.3-5.1) mmol/L Chloride 103 (96-108) mmol/L Carbon Dioxide 22 (22-29) mmol/L Anion Gap 15 (12-20) BUN 15 (9-16) mg/dL Creatinine 0.86 (0.5-1.4) mg/dL Estim Creat Clear Calc 58.1 Estimated GFR > 60 Random Glucose 116 H (60-115) mg/dL Calcium 9.5 (8.4-10.2) mg/dL Total Bilirubin 0.7 (0.0-1.0) mg/dL AST 23 (5-31) U/L ALT 14 (0-31) U/L Alkaline Phosphatase 65 (39-117) U/L Troponin I High Sens < 2.7 (<3.5-17.0) ng/L Total Protein 7.8 (6.5-8.0) g/dL Albumin 4.4 (3.5-5.0) g/dL Lipase 71 (8-78) U/L Urine Color Yellow Urine Appearance Clear Urine pH 5.5 (5.0-9.0) Ur Specific [place] 1.015 (1.005-1.025) Urine Protein Negative (Neg-Trace) mg/dL Urine Glucose (UA) Negative (Negative) mg/dL Urine Ketones Negative (Negative) mg/dL Urine Blood Moderate (2+) H (Negative) Urine Nitrite Negative (Negative) Ur Leukocyte Esterase Negative (Negative) Urine RBC 6-10 H (0-2) /HPF Urine WBC 0-5 (0-5) /HPF Ur Squamous Epith Cells 0-2 (0-2) /HPF Urine Bacteria None Seen (None Seen) Hyaline Casts 0-2 (0-2) /LPF Independent Interpretation I performed an independent interpretation of an: EKG, Plain X-Ray and CT Scan Radiology Impression Discussion of test interpretation with radiology: I have reviewed the radiologist's reading. External Record Review External record reviewed: Inpatient record Chronic Conditions Patient?s care impacted by: Hypertension Discharge Plan Discharge Clinical Impression: Hypertension Patient Disposition: Home, Self-Care Instructions: Hypertension (ED) Additional Instructions: You were seen today in the emergency room after finding of elevated blood pressure. You had CT x-ray and labs which were all unremarkable. Please call follow-up with Any further concerns please do not hesitate to come back to emergency Prescriptions: New lisinopril 5 mg tablet 5 mg PO DAILY Qty: 60 0RF No Action cholecalciferol (vitamin D3) 25 mcg (1,000 unit) tablet 25 mcg PO DAILY 90 Days Qty: 90 4RF cetirizine [Zyrtec] 10 mg tablet 10 mg PO DAILY 30 Days Qty: 30 1RF Citrucel 500 mg tablet 500 mg PO BID Qty: 60 5RF
[2023-05-20 12:52] VITALS: BP 208/95; PULSE 76; RESP 16; O2SAT 99
--- NOTE | 2023-05-20 12:52 | PC.NURSE ---
pt brought straight back from triage after presenting to ED as an expect from urgent care due to very high BP. In room, pt went to CT, EKG done, labs and IV inserted and vitals retaken. BP 208/95, VS otherwise stable. Pt has no complaints of pain, but reports a feeling of uneasiness that brought her to the hospital in the first place.She said she woke up from a nap, felt unwell, and something told her that she needed to go the hospital, pt is vague about this feeling. During initial lab draw and workup pt was tearful and is nervous reports I dont need this right now Neuro exam negative, no slurred speech, no weakness noted, no facial droop. Pt ambulated to bathroom independently. at bedside. Plan of care ongoing
[2023-05-20 12:55] LABS: MANUAL DIFF FLAG NO
[2023-05-20 12:57] LABS: Basophils Percent Auto 0.5 % (0-2); Eosinophils Percent Auto 0.5 % (0-4); Hematocrit 41.7 % (37.0-47.0); Imm Gran Abs Auto 0.03 X10*3/uL (0.00-0.03); Imm Gran Pct Auto 0.4 % (0.0-0.4); Lymphocytes Absolute Auto 1.9 X10*3/uL (1.2-4.9); Lymphocytes Percent Auto 25.1 % (20-40); Mean Corpuscular HGB Conc 33.6 g/dl (31.0-35.0); Mean Corpuscular Hemoglobin 30.6 pg (27.0-33.0); Mean Platelet Volume 10.3 fL (9.4-12.3); Monocytes Absolute Auto 0.6 X10*3/uL (0.1-1.2); Monocytes Percent Auto 7.6 % (2-11); Neutrophils Absolute Auto 4.9 x10*3/uL (2.0-8.3); Neutrophils Percent Auto 65.9 % (45-73); Platelet Count 299 X10*3/uL (160-400); Red Blood Count 4.58 X10*6/uL (4.20-5.50); Red Cell Distribution Width 13.4 % (11.0-16.0); White Blood Count 7.5 X10*3/uL (4.8-10.8)
[2023-05-20 12:59] LABS: Appearance Urine Clear; Color Urine Yellow; Glucose Urine UA Negative (Negative); Leukocyte Esterase Urine Negative (Negative); Nitrite Urine Negative (Negative); PH 5.5 (5.0-9.0); Specific Gravity - Urine 1.015 (1.005-1.025); UMIC TRIGGER UACC YES; Urine Blood Moderate (2+) (Negative); Urine Ketones Negative (Negative); Urine Protein Negative (Neg-Trace)
[2023-05-20 13:03] LABS: INTERNATIONAL NORM RATIO 0.9 (0.9-1.1); Prothrombin Time 11.1 SEC (11.1-13.3)
[2023-05-20 13:04] LABS: Bacteria Urine None Seen (None Seen); Hyaline Casts Urine 0-2 /LPF (0-2); Squamous Epithelial Cell Urine 0-2 /HPF (0-2); WBC Urine 0-5 /HPF (0-5)
[2023-05-20 13:05] LABS: Partial Thromboplastin Time 30.5 SEC (26.0-36.4)
[2023-05-20 13:19] VITALS: BP 200/98; PULSE 75; RESP 16; TEMP 36.7; O2SAT 98
[2023-05-20 13:20] LABS: Alanine Aminotransferase 14 U/L (0-31); Albumin Level 4.4 g/dL (3.5-5.0); Alkaline Phosphatase 65 U/L (39-117); Anion Gap 15 (12-20); Aspartate Amino Transferase 23 U/L (5-31); Bilirubin Total 0.7 mg/dL (0.0-1.0); Blood Urea Nitrogen 15 mg/dL (9-16); Calcium 9.5 mg/dL (8.4-10.2); Carbon Dioxide 22 mmol/L (22-29); Chloride 103 mmol/L (96-108); Creatinine Clr Calc Pharmacy 58.1; Estimated Glomerular Filt Rate > 60; Glucose Random 116 mg/dL (60-115); Lipase 71 U/L (8-78); Potassium 3.9 mmol/L (3.3-5.1); Sodium 136 mmol/L (135-145); Total Protein 7.8 g/dL (6.5-8.0)
[2023-05-20 13:20] LABS: Troponin-I High Sensitivity < 2.7 ng/L (<3.5-17.0)
[2023-05-20 14:09] VITALS: BP 201/93; PULSE 59; RESP 16; O2SAT 96
[2023-05-20] MEDS: Labetalol HCL 200 MG TABLET PO (14:10)
[2023-05-20] MEDS: hydrALAZINE HCl 20 MG/ML VIAL 10 MG IVPUSH (14:10)
--- NOTE | 2023-05-20 14:12 | PC.NURSE ---
pt recheck BP still high 201/93. MD order for hydralazine and labetalol given. results pending BP recheck
[2023-05-20 14:33] VITALS: BP 127/68; PULSE 70; RESP 15; O2SAT 96
== END 2023-05-20 14:48 | disposition home or self-care (01) ==
PROVIDERS: Physician Assistant; Emergency Provider Student in an Organized Health Care Education/Training Program; PCP Nurse Practitioner Family
DX: I10 Essential (primary) hypertension (principal); R53.1 Weakness; R42 Dizziness and giddiness; R29.700 NIHSS score 0; Z87.891 Personal history of nicotine dependence; Z79.899 Other long term (current) drug therapy
CPT/HCPCS: 36415; 70450; 80053; 81001; 83690; 84484; 85025; 85610; 85730; 93005; 96374; 99284

== ENCOUNTER 2023-05-26 13:00 | Outpatient (AMB) | payer OTHER, SELFPAY ==
[2023-05-26 13:05] VITALS: BP 138/80; PULSE 88; RESP 13; TEMP 36.4; O2SAT 99; BMI 30.3
--- NOTE | 2023-05-26 13:05 | A.OFFPC_ITS ---
Vital Signs 05/26/23 13:05 05/26/23 13:35 Height 5 ft 4 in Weight 176 lb 6 oz BMI 30.3 BP 138/80 140/80 H Blood Pressure Location Lt brachial Lt brachial Position Sitting Sitting Respiration 13 Pulse 88 Pulse Source Pulse Oximeter Temp 97.6 F Temp Source Temporal Artery Scan Pulse Oximetry (%) 99 Oxygen Delivery Method Room Air Intake Visit Reasons: [facility]/ [facility] Director Medical Affairs Required: No Accompanied by: Self / Same As Patient Allergies No Known Allergies Allergy (Verified 05/26/23 13:13) Tobacco use date assessed: 11/09/22 Fall risk assessment: No Falls in past year Last assessed Fall Risk: 05/26/23 Dental Screening Dental Screen Date: 05/26/23 Did you have a dental visit in the last 12 months?: Yes Did you have a dental problem in the last 6 months where you did not have access to dental care?: No Was dental information given to patient?: Patient has dentist HPI HPI Comments History of Present Illness Details 77-year-old female presents for hyperten waldemar follow-up. She was evaluated at [facility] walk-in clinic for hypertension on 05/20/2023. She was sent to [facility] ED for further evaluation. She had series of elevated systolic blood pressure readings above 200. Labs and imaging were unremarkable. She was administered IV and p.o. labetalol in the ED and sent home on lisinopril 5 mg daily. She had no prior history of hypertension and was never on an antihypertensive medication. She notes that she has been taking Lisinopril without adverse reactions. She notes she has not experienced any symptoms since she was discharged from the ED. She denies any acute symtptoms at this time. She admits to maintaining a low-sodium diet. She denies history of hypertension on her father's side. Hypertension history on mother's side is unclear. [facility] Medical History No pertinent past medical history Surgical History Hx of colonoscopy Social History Housing: Condominium Alcohol intake: current Patient Tobacco Use Status: Former Tobacco user e-Cigarette/Vaping Use: Never Used service: No Current occupational status: employed Current occupation: [employer] Cognitive needs: No Hearing needs: No Vision needs: Yes Questionnaire Thrive Questionnaire Date Thrive assessed: 09/14/22 PACO-7 AMB Questionnaire PACO-7 Date PACO - 7 assessed: 09/14/22 Source: Developed by Drs. Olman Ordonez, Sharita Hidalgo, Phoenix Pierre and colleagues, with an educational ana from [employer]. Review of Systems Const Details: Const Denies chills, Denies fatigue, Denies fever(s), Denies headache(s) and Denies weakness ENT Denies dizziness and Denies headache(s) Card Denies chest pain, Denies lightheadedness, Denies dyspnea and Denies other (Palpitations) Resp Denies cough, Denies dyspnea, Denies wheezing and Denies other ( shortness of breath) GI Denies abdominal pain, Denies melena, Denies hematochezia, Denies change in bowel habits, Denies dyspepsia and Denies nausea Denies hematuria and Denies dysuria Musc Denies abnormal gait, Denies myalgias, Denies arthralgias, Denies numbness and Denies tingling Skin/Breast Denies rash, Denies unusual bruising and Denies wounds Neuro Denies abnormal gait, Denies dizziness, Denies headache(s), Denies memory loss, Denies numbness, Denies Sensory deficit (Neuro), Denies tingling and Denies weakness Psych Denies anxiety, Denies depression, Denies memory loss Endo Denies cold intolerance, Denies fatigue, Denies heat intolerance, Denies polydipsia and Denies polyuria Aller/Immun Denies wheezing Physical exam (Primary Care) Vital Signs: Last Vital Signs Temp 97.6 F 05/26/23 13:05 Pulse 88 05/26/23 13:05 Resp 13 05/26/23 13:05 BP 138/80 05/26/23 13:05 Pulse Ox 99 05/26/23 13:05 Oxygen Delivery Method Room Air 05/26/23 13:05 BMI result Body Mass Index 30.3 Tobacco/Smoking Status: Tobacco use Status Tobacco use date assessed 11/09/22 05/26/23 13:15 Patient Tobacco Use Status Former Tobacco user 05/26/23 13:15 e-Cigarette/Vaping Use Never Used 05/26/23 13:15 Thrive Assessment: Date of Thrive Assessment Date Thrive assessed 09/14/22 05/26/23 13:15 Const Other: General: no acute distress and well developed Nutritional Appearance: well nourished Orientation/consciousness: patient oriented x3 [facility] Head: Yes normocephalic and Yes atraumatic Eyes General: appearance normal, both eyes and all related structures Pupils: Equal, round and reactive pupils present EOM: EOMs intact bilaterally Resp Effort & Inspection: normal respiratory effort Auscultation: clear to auscultation bilaterally Cardio Rate: regular rate Rhythm: regular rhythm Heart sounds: S1 normal heart sound present, S2 normal heart sound present, no gallops, no murmurs and no rubs GI Palpation (GI): No Abdominal aortic bruit present, Soft to palpation, nontender, No hepatosplenomegaly present and No Rebound tenderness present Auscultation: normal bowel sounds General: Yes no CVA tenderness Back/Spine/Pelvis Back: no CVA tenderness Cervical Spine: cervical ROM normal and No Cervical spine tenderness Thoracic/Lumbar Spine: thoraco-lumbar ROM normal, No pain with thoraco-lumbar ROM, No thoracic spinal tenderness and No lumbar spinal tenderness Extrem General: Yes normal to inspection, No edema and No calf tenderness Skin General: warm and dry. Normal skin color. Normal skin turgor Lesions: no lesions Rashes: no rashes Trauma: no lacerations or abrasions Wounds: no wounds Nails: normal Neuro General: patient oriented x3, gait normal and no focal neuro deficit Cranial nerves: Yes Equal, round and reactive pupils present Cognition (Neuro): normal cognition Gait exam (Neuro): Normal gait present Sensory Exam: No Sensory deficit (Neuro) Psych Appearance: grossly normal Affect: normal affect Attitude: cooperative Thought process: Normal thought process present Assessment and Plan Assessment & Plan (1) Hypertension: Code(s): I10 - Essential (primary) hypertension Qualifiers: Hypertension type: primary hypertension Qualified Code(s): I10 - Essential (primary) hypertension Plan: Resting blood pressure is 140/80, slightly above goal of less than 140/80 Will increase lisinopril to 10 mg daily. Take as prescribed Low-sodium diet and routine exercise encouraged Referred to Cardiology for further workup Follow-up in 1 month or return sooner with symptoms or concerns Verbalized understanding and agreed with treatment plan. Orders: Referrals Cardiology Referral I10 - Essential (primary) hypertension Medications: New lisinopril 10 mg PO DAILY 30 tabs 3RF 30 days Discontinued lisinopril Discontinued Reason: Doctor's Order 5 mg PO DAILY 60 tabs 0RF Coding Level of Care Code TCM Mod MDM <= 7 Days Diagnoses Primary hypertension I10 Hypertension type: primary hypertension
[2023-05-26 13:35] VITALS: BP 140/80
== END 2023-05-26 13:37 | disposition home or self-care (01) ==
PROVIDERS: PCP Nurse Practitioner Family; Visit Provider Nurse Practitioner Family
DX: I10 Essential (primary) hypertension (principal)
CPT/HCPCS: 99214

== ENCOUNTER 2023-07-04 12:18 | Outpatient (AMB) | payer OTHER, SELFPAY ==
[2023-07-04 12:34] VITALS: BP 142/68; PULSE 83; RESP 12; O2SAT 98; BMI 30.2
--- NOTE | 2023-07-04 12:34 | A.OFFPC_ITS ---
Vital Signs 07/04/23 12:34 07/04/23 12:57 Height 5 ft 4 in Weight 176 lb 4 oz BMI 30.2 BP 142/68 H 114/60 Blood Pressure Location Lt brachial Rt brachial Position Sitting Sitting Respiration 12 Pulse 83 Pulse Source Pulse Oximeter Pulse Oximetry (%) 98 Oxygen Delivery Method Room Air Intake Visit Reasons: 1 mos htn Intake Note: Patient is here to follow up on hypertension. Allergies No Known Allergies Allergy (Verified 07/04/23 12:52) Medication List - Last Reconciled 07/04/23 by Vladimir Owen CNP cetirizine (Zyrtec) 10 mg PO DAILY 30 days cholecalciferol (vitamin D3) 25 mcg PO DAILY 90 days lisinopril 10 mg PO DAILY 30 days methylcellulose (laxative) (Citrucel) 500 mg PO BID PRN Tobacco use date assessed: 07/04/23 Fall risk assessment: No Falls in past year Last assessed Fall Risk: 07/04/23 HPI HPI Comments History of Present Illness Details 77-year-old female presents for hyperten waldemar follow-up Lisinopril was increased from 5 mg to 10 mg over a month ago She admits to taking her medications as prescribed with no adverse reaction She notes that she has been maintaining a healthy diet, including low-sodium She offers no complaints and denies acute symptoms at this time [facility] Medical History (Updated 07/04/23 @ 13:03 by Vladimir Owen CNP) No pertinent past medical history Surgical History (Updated 05/30/23 @ 14:32 by Nadege Tomlinson) Hx of colonoscopy (System 05/30/23 @ 14:32 by Nadege Tomlinson) Housing: Condominium Alcohol intake: current Patient Tobacco Use Status: Former Tobacco user e-Cigarette/Vaping Use: Never Used service: No Current occupational status: employed Current occupation: [employer] Cognitive needs: No Hearing needs: No Vision needs: Yes Questionnaire Thrive Questionnaire Date Thrive assessed: 09/14/22 PACO-7 AMB Questionnaire PACO-7 Date PACO - 7 assessed: 09/14/22 Source: Developed by Drs. Olman Ordonez, Sharita Hidalgo, [place] Pierre and colleagues, with an educational ana from [employer]. Review of Systems Const Details: Const Denies chills, Denies fatigue, Denies fever(s), Denies headache(s) and Denies weakness ENT Denies dizziness and Denies headache(s) Card Denies chest pain, Denies lightheadedness, Denies dyspnea and Denies other (Palpitations) Resp Denies cough, Denies dyspnea, Denies wheezing and Denies other ( shortness of breath) GI Denies abdominal pain, Denies melena, Denies hematochezia, Denies change in bowel habits, Denies dyspepsia and Denies nausea Denies hematuria and Denies dysuria Musc Denies abnormal gait, Denies myalgias, Denies arthralgias, Denies numbness and Denies tingling Skin/Breast Denies rash, Denies unusual bruising and Denies wounds Neuro Denies abnormal gait, Denies dizziness, Denies headache(s), Denies memory loss, Denies numbness, Denies Sensory deficit (Neuro), Denies tingling and Denies weakness Psych Denies anxiety, Denies depression, Denies memory loss Endo Denies cold intolerance, Denies fatigue, Denies heat intolerance, Denies polydipsia and Denies polyuria Aller/Immun Denies wheezing Physical exam (Primary Care) Vital Signs: Last Vital Signs Pulse 83 07/04/23 12:34 Resp 12 07/04/23 12:34 BP 114/60 07/04/23 12:57 Pulse Ox 98 07/04/23 12:34 Oxygen Delivery Method Room Air 07/04/23 12:34 BMI result Body Mass Index 30.2 Tobacco/Smoking Status: Tobacco use Status Tobacco use date assessed 07/04/23 07/04/23 12:38 Patient Tobacco Use Status Former Tobacco user 07/04/23 12:35 e-Cigarette/Vaping Use Never Used 07/04/23 12:35 Thrive Assessment: Date of Thrive Assessment Date Thrive assessed 09/14/22 07/04/23 12:35 Const Other: General: no acute distress and well developed Nutritional Appearance: well nourished Orientation/consciousness: patient oriented x3 [facility] Head: Yes normocephalic and Yes atraumatic Eyes General: appearance normal, both eyes and all related structures Pupils: Equal, round and reactive pupils present EOM: EOMs intact bilaterally Resp Effort & Inspection: normal respiratory effort Auscultation: clear to auscultation bilaterally Cardio Rate: regular rate Rhythm: regular rhythm Heart sounds: S1 normal heart sound present, S2 normal heart sound present, no gallops, no murmurs and no rubs GI Palpation (GI): No Abdominal aortic bruit present, Soft to palpation, nontender, No hepatosplenomegaly present and No Rebound tenderness present Auscultation: normal bowel sounds General: Yes no CVA tenderness Back/Spine/Pelvis Back: no CVA tenderness Cervical Spine: cervical ROM normal and No Cervical spine tenderness Thoracic/Lumbar Spine: thoraco-lumbar ROM normal, No pain with thoraco-lumbar ROM, No thoracic spinal tenderness and No lumbar spinal tenderness Extrem General: Yes normal to inspection, No edema and No calf tenderness Skin General: warm and dry. Normal skin color. Normal skin turgor Lesions: no lesions Rashes: no rashes Trauma: no lacerations or abrasions Wounds: no wounds Nails: normal Neuro General: patient oriented x3, gait normal and no focal neuro deficit Cranial nerves: Yes Equal, round and reactive pupils present Cognition (Neuro): normal cognition Gait exam (Neuro): Normal gait present Sensory Exam: No Sensory deficit (Neuro) Psych Appearance: grossly normal Affect: normal affect Attitude: cooperative Thought process: Normal thought process present Assessment and Plan Assessment & Plan (1) Hypertension: Code(s): I10 - Essential (primary) hypertension Qualifiers: Hypertension type: primary hypertension Qualified Code(s): I10 - Essential (primary) hypertension Plan: Resting blood pressure is 114/60, within goal of less than 140/90 Continue with current treatment regimen Low-sodium diet encouraged Advised to monitor daily or 3 times weekly, record readings, and bring to next appointment. Reports BP readings consistently above 140/90, SBP consistently below 100, or DBP consistently below 60. Also advised to report symptoms of dizziness or lightheadedness Follow-up with cardiology as planned Return in 2 months or sooner with symptoms or concerns Verbalized understanding and agreed with treatment plan Orders: Orders Glucose Fasting Today R73.01 - Impaired fasting glucose Coding Level of Care Code Est Pt Level 3 (17177) Diagnoses Primary hypertension I10 Hypertension type: primary hypertension
[2023-07-04 12:57] VITALS: BP 114/60
== END 2023-07-04 13:08 | disposition home or self-care (01) ==
PROVIDERS: PCP Nurse Practitioner Family; Visit Provider Nurse Practitioner Family
DX: I10 Essential (primary) hypertension (principal)
CPT/HCPCS: 99213

== ENCOUNTER 2023-08-24 14:07 | Outpatient (AMB) | payer OTHER, SELFPAY ==
--- NOTE | 2023-08-24 14:30 | MHC.OFFVIS ---
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 Room Cooler Installer Required: No Accompanied by: Self / Same As Patient Allergies No Known Allergies Allergy (Verified 07/04/23 12:52) Medication List - Last Reconciled 08/24/23 by Miguel Angel Jones MD cholecalciferol (vitamin D3) 25 mcg PO DAILY 90 days lisinopril 10 mg PO DAILY 30 days methylcellulose (laxative) (Citrucel) 500 mg PO BID PRN HPI HPI Comments History of Present Illness Details 77-year-old female who is referred to us for elevated blood pressure. In May she went to the emergency department because she was not feeling well and was noted to have significantly elevated blood pressures. This was treated and she was started on lisinopril 5 mg daily this was titrated to 10 mg daily and her blood pressure has been well controlled since then. It appears she had viral illness/congestion at that time and she was using a decongestant. It is very likely that decongestants led to her elevated blood pressure because her blood pressure was as high as 200s and usually it will require 2-3 medications to have good control of this level of hypertension when she is well controlled with a small dose of lisinopril. No chest pains or shortness of breath. Overall clinically stable. [facility] Medical History (Updated 08/24/23 @ 14:57 by Miguel Angel Jones MD) No pertinent past medical history Surgical History Hx of colonoscopy Social History Housing: Condominium Alcohol intake: current Patient Tobacco Use Status: Former Tobacco user e-Cigarette/Vaping Use: Never Used service: No Current occupational status: employed Current occupation: [employer] Cognitive needs: No Hearing needs: No Vision needs: Yes Review of Systems Const Reports chills, Reports fatigue, Reports fever(s), Reports frequent falls, Reports weakness, Reports weight gain and Reports weight loss ENT Reports dizziness Card Reports chest pain, Reports leg edema, Reports lightheadedness, Reports palpitations, Reports dyspnea, Reports dyspnea on exertion and Reports orthopnea Resp Reports cough, Reports dyspnea and Reports dyspnea on exertion GI Reports bloating and Reports change in bowel habits Musc Reports muscle weakness, Reports numbness and Reports tingling Neuro Reports dizziness, Reports frequent falls, Reports numbness, Reports tingling and Reports weakness Endo Reports fatigue and Reports palpitations Physical Exam Vital Signs: Last Vital Signs Pulse 84 08/24/23 14:31 BP 110/60 08/24/23 14:31 BMI result Body Mass Index 29.9 GENERAL APPEARANCE: in no acute distress, pleasant. NECK: no carotid bruit, no jugular venous distention. SKIN: no suspicious lesions, warm and dry. HEART: no murmurs, regular rate and rhythm. LUNGS: clear to auscultation bilaterally. ABDOMEN: soft, nontender. EXTREMITIES: no edema. PERIPHERAL PULSES: equal. NEUROLOGIC: No gross deficits, AAO X 3 Office Procedures EKG Details: Sinus rhythm 84 beats per minute, normal axis, normal EKG, QTC 411 milliseconds. [id number], Complete Assessment & Plan Assessment & Plan (1) Essential hypertension: Code(s): I10 - Essential (primary) hypertension Plan Pleasant 77 year female who is here for 1st office visit. She recently had an episode where her blood pressure was 200 systolic and she was not feeling well. She went to the emergency department and eventually was discharged home on lisinopril. She is on lisinopril 10 mg daily now. Blood pressure is well controlled. EKGs not showing any signs of left ventricular hypertrophy. She was using decongestants which could have caused elevated blood pressure. I have advised her not to use any decongestants and check with the pharmacist before buying any [id number] medications. We will check echocardiogram to assess for any structural heart issues. Continue lisinopril. Follow-up with us in 1 year. Thank you for allowing me to participate in the care of your patient. Please feel free to contact me if you have any questions. Orders: Orders CA echo transthoracic complete Today I10 - Essential (primary) hypertension Coding Level of Care Code New Pt Level 4 (22481) Diagnoses Essential hypertension I10 CPT Codes EKG - CPT: 41039-[id number], Complete ([id number])
[2023-08-24 14:31] VITALS: BP 110/60; PULSE 84; BMI 29.9
== END 2023-08-24 15:03 | disposition home or self-care (01) ==
PROVIDERS: PCP Nurse Practitioner Family; Visit Provider Internal Medicine Cardiovascular Disease
DX: I10 Essential (primary) hypertension (principal)
CPT/HCPCS: 93010; 99204

== ENCOUNTER → 2023-08-24 14:07 | Outpatient (BNVA) | payer OTHER, SELFPAY | PROVIDERS: PCP Nurse Practitioner Family; Visit Provider Internal Medicine Cardiovascular Disease | DX: I10 Essential (primary) hypertension (principal); Z79.899 Other long term (current) drug therapy | CPT/HCPCS: 93005 ==

== ENCOUNTER 2023-09-06 09:54 | Outpatient (AMB) | payer OTHER, SELFPAY ==
[2023-09-06 09:56] VITALS: BP 134/70; PULSE 65; RESP 13; TEMP 36.3; O2SAT 98; BMI 30.7
--- NOTE | 2023-09-06 09:56 | A.OFFPC_ITS ---
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 Allergies No Known Allergies Allergy (Verified 09/06/23 10:10) Medication List - Last Reconciled 09/06/23 by Vladimir Owen CNP cholecalciferol (vitamin D3) 25 mcg PO DAILY 90 days lisinopril 10 mg PO DAILY 30 days methylcellulose (laxative) (Citrucel) 500 mg PO BID PRN Tobacco use date assessed: 09/06/23 Fall risk assessment: No Falls in past year Last assessed Fall Risk: 09/06/23 Dental Screening Dental Screen Date: 09/06/23 Did you have a dental visit in the last 12 months?: Yes Did you have a dental problem in the last 6 months where you did not have access to dental care?: No Was dental information given to patient?: Patient has dentist HPI HPI Comments History of Present Illness Details 77-year-old female presents for hyperten waldemar follow-up She admits to taking her medications as prescribed with no adverse reaction She notes that her home SBP average between 114-120 and DBP in the 70s She notes that she has been maintaining a healthy diet, including low-sodium She reports intermittent fatigue and sleepiness, especially during the day for the past 3 months PFSH Medical History No pertinent past medical history Surgical History Hx of colonoscopy Social History Housing: Condominium Alcohol intake: current Patient Tobacco Use Status: Former Tobacco user e-Cigarette/Vaping Use: Never Used service: No Current occupational status: employed Current occupation: [employer] Cognitive needs: No Hearing needs: No Vision needs: No Questionnaire Thrive Questionnaire Date Thrive assessed: 09/14/22 PACO-7 AMB Questionnaire PACO-7 Date PACO - 7 assessed: 09/14/22 Source: Developed by Drs. Olman Ordonez, Sharita Hidalgo, [place] Pierre and colleagues, with an educational ana from [email or web address]. Review of Systems Const Details: Const Denies chills, Reports fatigue, Denies fever(s), Denies headache(s) and Denies weakness ENT Denies dizziness and Denies headache(s) Card Denies chest pain, Denies lightheadedness, Denies dyspnea and Denies other (Palpitations) Resp Denies cough, Denies dyspnea, Denies wheezing and Denies other ( shortness of breath) GI Denies abdominal pain, Denies melena, Denies hematochezia, Denies change in bowel habits, Denies dyspepsia and Denies nausea Denies hematuria and Denies dysuria Musc Denies abnormal gait, Denies myalgias, Denies arthralgias, Denies numbness and Denies tingling Skin/Breast Denies rash, Denies unusual bruising and Denies wounds Neuro Denies abnormal gait, Denies dizziness, Denies headache(s), Denies memory loss, Denies numbness, Denies Sensory deficit (Neuro), Denies tingling and Denies weakness Psych Denies anxiety, Denies depression, Denies memory loss Endo Denies cold intolerance, Reports fatigue, Denies heat intolerance, Denies polydipsia and Denies polyuria Aller/Immun Denies wheezing Physical exam (Primary Care) Vital Signs: Last Vital Signs Temp 97.3 F 09/06/23 09:56 Pulse 65 09/06/23 09:56 Resp 13 09/06/23 09:56 BP 134/70 09/06/23 09:56 Pulse Ox 98 09/06/23 09:56 Oxygen Delivery Method Room Air 09/06/23 09:56 BMI result Body Mass Index 30.7 Tobacco/Smoking Status: Tobacco use Status Tobacco use date assessed 09/06/23 09/06/23 10:06 Patient Tobacco Use Status Former Tobacco user 09/06/23 10:03 e-Cigarette/Vaping Use Never Used 09/06/23 10:03 Thrive Assessment: Date of Thrive Assessment Date Thrive assessed 09/14/22 09/06/23 10:03 Const Other: General: no acute distress and well developed Nutritional Appearance: well nourished Orientation/consciousness: patient oriented x3 HENMT Head: Yes normocephalic and Yes atraumatic Eyes General: appearance normal, both eyes and all related structures Pupils: Equal, round and reactive pupils present EOM: EOMs intact bilaterally Resp Effort & Inspection: normal respiratory effort Auscultation: clear to auscultation bilaterally Cardio Rate: regular rate Rhythm: regular rhythm Heart sounds: S1 normal heart sound present, S2 normal heart sound present, no gallops, no murmurs and no rubs GI Palpation (GI): No Abdominal aortic bruit present, Soft to palpation, nontender, No hepatosplenomegaly present and No Rebound tenderness present Auscultation: normal bowel sounds General: Yes no CVA tenderness Back/Spine/Pelvis Back: no CVA tenderness Cervical Spine: cervical ROM normal and No Cervical spine tenderness Thoracic/Lumbar Spine: thoraco-lumbar ROM normal, No pain with thoraco-lumbar ROM, No thoracic spinal tenderness and No lumbar spinal tenderness Extrem General: Yes normal to inspection, No edema and No calf tenderness Skin General: warm and dry. Normal skin color. Normal skin turgor Neuro General: patient oriented x3, gait normal and no focal neuro deficit Cranial nerves: Yes Equal, round and reactive pupils present Cognition (Neuro): normal cognition Gait exam (Neuro): Normal gait present Sensory Exam: No Sensory deficit (Neuro) Psych Appearance: grossly normal Affect: normal affect Attitude: cooperative Thought process: Normal thought process present Assessment and Plan Assessment & Plan (1) Essential hypertension: Code(s): I10 - Essential (primary) hypertension Plan: Blood pressure is 110/64, within goal of less than 140/90 Continue with current treatment regimen Low-sodium diet encouraged Follow-up for complete physical exam next month as planned Return sooner with symptoms or concerns Verbalized understanding and agreed with treatment plan (2) Fatigue: Code(s): R53.83 - Other fatigue Plan: Fatigue x3 months CBC, BNP, TSH, vitamin-D, and A1c ordered. She has history of elevated fasting glucose Will review results and make changes as needed Follow-up with worsening or new symptoms Verbalized understanding and agreed with treatment plan Orders: Orders Complete Blood Count Auto Diff Today R53.83 - Other fatigue Basic Metabolic Panel Today R53.83 - Other fatigue TSH reflex Free T4 Today R53.83 - Other fatigue Vitamin D 25-OH Total Today R53.83 - Other fatigue Hemoglobin A1c Today R53.83 - Other fatigue Coding Level of Care Code Est Pt Level 3 (24968) Diagnoses Essential hypertension I10 Fatigue R53.83
[2023-09-06 10:17] VITALS: BP 110/64
== END 2023-09-06 10:24 | disposition home or self-care (01) ==
PROVIDERS: PCP Nurse Practitioner Family; Visit Provider Nurse Practitioner Family
DX: I10 Essential (primary) hypertension (principal); R53.83 Other fatigue
CPT/HCPCS: 99213

== ENCOUNTER 2023-09-06 10:51 | Outpatient (REF) | payer OTHER, SELFPAY ==
[2023-09-06 13:32] LABS: MANUAL DIFF FLAG NO
[2023-09-06 13:43] LABS: Basophils Percent Auto 0.5 % (0-2); Eosinophils Absolute Auto 0.1 X10*3/uL (0.0-0.4); Eosinophils Percent Auto 1.1 % (0-4); Hematocrit 38.9 % (37.0-47.0); Hemoglobin 12.7 g/dl (12.0-16.0); Imm Gran Abs Auto 0.03 X10*3/uL (0.00-0.03); Imm Gran Pct Auto 0.4 % (0.0-0.4); Lymphocytes Absolute Auto 2.2 X10*3/uL (1.2-4.9); Lymphocytes Percent Auto 29.5 % (20-40); Mean Corpuscular HGB Conc 32.6 g/dl (31.0-35.0); Mean Corpuscular Hemoglobin 30.8 pg (27.0-33.0); Mean Corpuscular Volume 94.4 fL (80.0-98.0); Mean Platelet Volume 11.1 fL (9.4-12.3); Monocytes Absolute Auto 0.7 X10*3/uL (0.1-1.2); Monocytes Percent Auto 9.2 % (2-11); Neutrophils Absolute Auto 4.4 x10*3/uL (2.0-8.3); Neutrophils Percent Auto 59.3 % (45-73); Platelet Count 350 X10*3/uL (160-400); Red Blood Count 4.12 X10*6/uL (4.20-5.50); Red Cell Distribution Width 13.9 % (11.0-16.0); White Blood Count 7.4 X10*3/uL (4.8-10.8)
[2023-09-06 13:50] LABS: Estimated Average Glucose 114 mg/dL; Hemoglobin A1c % 5.6 % (<6.0)
[2023-09-06 14:06] LABS: Anion Gap 13 (12-20); Blood Urea Nitrogen 31 mg/dL (9-16); Calcium 9.4 mg/dL (8.4-10.2); Carbon Dioxide 24 mmol/L (22-29); Chloride 105 mmol/L (96-108); Cholesterol 223 mg/dL (<200); Estimated Glomerular Filt Rate 56; Glucose Random 70 mg/dL (60-115); HDL Cholesterol 77 mg/dL (>40); LDL Cholesterol Calculated 126 mg/dL (<100); Potassium 4.7 mmol/L (3.3-5.1); Sodium 137 mmol/L (135-145); Triglycerides 102 mg/dL (<150)
[2023-09-06 14:12] LABS: TSH reflex Free T4 2.21 uIU/mL (0.32-4.0); Vitamin D 25-OH Total 61.6 ng/mL (>30)
== END 2023-09-06 10:52 | disposition home or self-care (01) ==
LOC: HO.HMGCLDS 10:51
PROVIDERS: PCP Nurse Practitioner Family; Visit Provider Nurse Practitioner Family
DX: Z00.00 Encounter for general adult medical examination without abnormal findings (principal); R53.83 Other fatigue
CPT/HCPCS: 36415; 80048; 80061; 82306; 83036; 84443; 85025

== ENCOUNTER 2023-09-19 10:34 | Outpatient (AMB) | payer OTHER, SELFPAY ==
[2023-09-19 10:38] VITALS: BP 112/60; PULSE 69; RESP 14; TEMP 36.4; O2SAT 99; BMI 30.8
--- NOTE | 2023-09-19 10:38 | MHC.PC.OV ---
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 Accompanied by: Self / Same As Patient Allergies No Known Allergies Allergy (Verified 09/19/23 10:53) Medication List - Last Reconciled 09/19/23 by Vladimir Owen CNP cholecalciferol (vitamin D3) 25 mcg PO DAILY 90 days lisinopril 10 mg PO DAILY 30 days methylcellulose (laxative) (Citrucel) 500 mg PO BID PRN Tobacco use date assessed: 09/06/23 Fall risk assessment: No Falls in past year Last assessed Fall Risk: 09/19/23 Dental Screening Dental Screen Date: 09/19/23 Did you have a dental visit in the last 12 months?: Yes Did you have a dental problem in the last 6 months where you did not have access to dental care?: No Was dental information given to patient?: Patient has dentist HPI HPI Comments History of Present Illness Details 78-year-old female presents for an extended physical exam She has history of hypertension, hyperlipidemia, and osteopenia She admits to taking her medications as prescribed without adverse reactions She offers no complaints and denies acute symptoms at this time She is followed by [facility] cardiology Her last bone density scan was on 12/08/2022: osteopenia Her last mammogram was on 11/09/2022: normal Last colonoscopy was on 01/31/2023: Large amount material within the colon. He gastroenterology for a repeat colonoscopy She has not had the flu vaccine but intends to get vaccinated soon [facility] Medical History No pertinent past medical history Surgical History Hx of colonoscopy Social History Housing: Condominium Alcohol intake: current Patient Tobacco Use Status: Former Tobacco user e-Cigarette/Vaping Use: Never Used service: No Current occupational status: employed Current occupation: [employer] Cognitive needs: No Hearing needs: No Vision needs: No Questionnaire PHQ-9 Over the last 2 weeks, how often have you been bothered by any of the following problems? 1. Little interest or pleasure in doing things: not at all 2. Feeling down, depressed, or hopeless: not at all 3. Trouble falling or staying asleep, or sleeping too much: not at all 4. Feeling tired or having little energy: not at all 5. Poor appetite or overeating: not at all 6. Feeling bad about yourself - or that you are a failure or have let yourself or your family down: not at all 7. Trouble concentrating on things, such as reading the newspaper or watching television: not at all 8. Moving or speaking so slowly that other people could have noticed. Or the opposite - being so fidgety or restless that you have been moving around a lot more than usual: not at all 9. Thoughts that you would be better off or of hurting yourself in some way: not at all Total score: 0 Depression Screening Interpretation: Negative Depression Screening Done: Yes 56507 - PHQ-9 Billing: Yes Source: Developed by Drs. Olman Ordonez, Sharita Hidalgo, [place] Pierre and colleagues, with an educational ana from [employer]. Thrive Questionnaire Date Thrive assessed: 09/19/23 I am a: Patient What is your living situation today?: I have a steady place to live Within the past 12 months, did the food you bought not last and you didn't have the money to get more?: Never true Within the past 12 months, did you worry whether your food would run out before you got money to buy more?: Never true Do you have trouble paying for medicines?: No Do you have trouble getting transportation to medical appointments?: No Do you have trouble paying your heating and electricity bill?: No Do you have trouble taking care of your child, family member or friend?: No Do you have trouble with day-to-day activities such as bathing, preparing meals, shopping, managing finances, etc.?: No Are you currently unemployed and looking for a job?: No Are you interested in more education?: No Please select the resources that you would like help with: None Currently or been in a relationship where the following occur: no concerns reported THRIVE Score: 0 AUDIT C Alcohol Use Questionnaire (AUDIT-C) 1. How often do you have a drink containing alcohol?: 2-3 times a week 2. How many drinks containing alcohol do you have on a typical day when you are drinking?: 1 or 2 3. How often do you have six or more drinks on one occasion?: Never Total Score: 3 PACO-7 AMB Questionnaire PACO-7 Date PACO - 7 assessed: 09/19/23 Feeling nervous, anxious, or on edge: 0 = Not at all Not being able to stop or control worryin = Not at all Worrying too much about different things: 0 = Not at all Trouble relaxin = Not at all Being so restless that it is hard to sit still: 0 = Not at all Becoming easily annoyed or irritable: 1 = Several days Feeling afraid as if something awful might happen: 0 = Not at all Total APCO-7 score (0-4 normal; 5-9 mild; 10-14 moderate; 15-21 severe): 1 Source: Developed by Drs. Olman Ordonez, Sharita Hidalgo, [place] Pierre and colleagues, with an educational ana from [employer]. PACO-7 Assessment Billing PACO-7 Assessment Tool: PACO-7 Assessment 18045 Review of Systems Const Details: Denies chills, Denies fatigue, Denies fever(s), Denies headache(s) and Denies weakness HEENT Denies change in vision, Denies dizziness, Denies headache(s), Denies hearing loss, Denies nasal congestion, Denies sinus pain, Denies sinus pressure and Denies sore throat Card Denies chest pain, Denies lightheadedness, Denies dyspnea and Denies other (palpitations) Resp Denies cough, Denies dyspnea and Denies wheezing GI Denies abdominal pain, Denies melena, Denies hematochezia, Denies change in bowel habits, Denies dyspepsia and Denies nausea Denies hematuria and Denies dysuria Musc Denies abnormal gait, Denies myalgias, Denies arthralgias, Denies numbness and Denies tingling Skin/Breast Denies rash, Denies unusual bruising and Denies wounds Neuro Denies abnormal gait, Denies dizziness, Denies headache(s), Denies memory loss, Denies numbness, Denies Sensory deficit (Neuro), Denies tingling and Denies weakness Psych Denies anxiety, Denies depression and Denies memory loss Endo Denies cold intolerance, Denies fatigue, Denies heat intolerance, Denies polydipsia and Denies polyuria Mika/Lymph Denies easy bleeding and Denies easy bruising Aller/Immun Denies wheezing Physical exam (Primary Care) Vital Signs: Last Vital Signs Temp 97.5 F 09/19/23 10:38 Pulse 69 09/19/23 10:38 Resp 14 09/19/23 10:38 BP 112/60 09/19/23 10:38 Pulse Ox 99 09/19/23 10:38 Oxygen Delivery Method Room Air 09/19/23 10:38 BMI result Body Mass Index 30.8 Tobacco/Smoking Status: Tobacco use Status Tobacco use date assessed 09/06/23 09/19/23 10:48 Patient Tobacco Use Status Former Tobacco user 09/19/23 10:48 e-Cigarette/Vaping Use Never Used 09/19/23 10:48 PHQ-9: PHQ-9 Score PHQ-9: Total score 0 09/19/23 10:48 Depression Screening Interpretation: Negative Thrive Assessment: Date of Thrive Assessment Date Thrive assessed 09/19/23 09/19/23 10:48 Currently or been in a relationship where the following occur: no concerns reported Const Other: General: no acute distress, well developed, alert and awake Nutritional Appearance: well nourished Orientation/consciousness: patient oriented x3 HENMT Head: Yes normocephalic and Yes atraumatic Ears: hearing grossly normal bilaterally and TM's normal bilaterally General nose exam: Normal external nose present and Normal nares present Mouth: Normal oral and palatal mucosa present and moist mucous membranes Teeth and gingiva: dentition normal Throat: Yes oropharynx normal Eyes Pupils: Equal, round and reactive pupils present and Pupil accommodation reflex normal EOM: EOMs intact bilaterally Neck Neck: Yes normal visual inspection, Yes no lymphadenopathy and Yes trachea midline Thyroid: Thyroid normal Carotids: no bruits Lymphatic: no lymphadenopathy noted Chest Chest palpation & inspection: normal inspection of the chest Resp Effort & Inspection: normal respiratory effort Auscultation: clear to auscultation bilaterally Cardio Rate: regular rate Rhythm: regular rhythm Heart sounds: S1 normal heart sound present, S2 normal heart sound present, no gallops, no murmurs and no rubs Bruits: no abdominal aortic bruits and no carotid bruits GI Palpation (GI): No Abdominal aortic bruit present, Soft to palpation, nontender, No hepatosplenomegaly present and No Rebound tenderness present Auscultation: normal bowel sounds General: Yes no CVA tenderness Back/Spine/Pelvis Back: no CVA tenderness Cervical Spine: cervical ROM normal and No Cervical spine tenderness Thoracic/Lumbar Spine: thoraco-lumbar ROM normal, No pain with thoraco-lumbar ROM, No thoracic spinal tenderness and No lumbar spinal tenderness Skin General: warm and dry. Normal skin color. Normal skin turgor Lesions: no lesions Rashes: no rashes Trauma: no lacerations or abrasions Wounds: no wounds Nails: normal Neuro General: patient oriented x3, gait normal and CN's II-XI intact bilaterally Cranial nerves: Yes Equal, round and reactive pupils present Cognition (Neuro): normal cognition Gait exam (Neuro): Normal gait present Motor exam (neuro): 5/5 motor strength present throughout Sensory Exam: No Sensory deficit (Neuro) Deep tendon reflexes (DTR's): Right patellar reflex intensity grade: 2+ and Left patellar reflex intensity grade: 2+ Extrem General: Yes normal to inspection, No edema and No calf tenderness Psych Appearance: grossly normal Affect: normal affect Attitude: cooperative Thought process: Normal thought process present Assessment and Plan Assessment & Plan (1) Physical exam, annual: Code(s): Z00.00 - Encounter for general adult medical examination without abnormal findings Plan: No significant physical restrictions or limitations noted Continue current treatment regimen Healthy diet and routine exercise encouraged Follow-up with cardiology as planned Return in 3 months for hypertension or sooner with symptoms or concerns Verbalized understanding and agreed with treatment plan (2) High cholesterol: Code(s): E78.00 - Pure hypercholesterolemia, unspecified Plan: Recent total cholesterol level is slightly elevated, 223. She notes that she did not fast before the blood work Will repeat lipid panel. She has been fasting for more than 10 hours and will get blood work done today Will make changes as needed (3) Essential hypertension: Code(s): I10 - Essential (primary) hypertension Plan: Her blood pressure is 112/60, within goal of less than 130/80 Continue current treatment regimen Low-sodium diet encouraged Follow-up with cardiology as planned Follow-up in 3 months or return sooner with symptoms or concerns Verbalized understanding and agreed with the treatment plan Orders: Orders Lipid Panel Today E78.00 - Pure hypercholesterolemia, unspecified Coding Level of Care Code Est Pt Prev Care >65y(99700) Diagnoses Physical exam, annual Z00.00 High cholesterol E78.00 Essential hypertension I10 Additional Codes PACO-7 Assessment Billing - PACO-7 Assessment Tool: PACO-7 Assessment 74096 ([id number])
== END 2023-09-19 11:12 | disposition home or self-care (01) ==
PROVIDERS: PCP Nurse Practitioner Family; Visit Provider Nurse Practitioner Family
DX: Z00.00 Encounter for general adult medical examination without abnormal findings (principal); E78.00 Pure hypercholesterolemia, unspecified; I10 Essential (primary) hypertension
CPT/HCPCS: 99397

== ENCOUNTER 2023-09-19 11:22 | Outpatient (REF) | payer OTHER, SELFPAY ==
[2023-09-19 16:11] LABS: Cholesterol 185 mg/dL (<200); HDL Cholesterol 67 mg/dL (>40); LDL Cholesterol Calculated 105 mg/dL (<100); Triglycerides 66 mg/dL (<150)
== END 2023-09-19 11:23 | disposition home or self-care (01) ==
LOC: HO.WFDLDS 11:22
PROVIDERS: Visit Provider Nurse Practitioner Family
DX: E78.00 Pure hypercholesterolemia, unspecified (principal)
CPT/HCPCS: 36415; 80061

== ENCOUNTER → 2023-09-21 12:41 | Outpatient (REF) | payer OTHER, SELFPAY ==
--- NOTE | 2023-09-21 12:44 | CA_ITS ---
Transthoracic Echocardiogram Patient (Last, First, Middle): Thuy Lizama, Gender: Female Date of : 1945 Age: 78 Procedure Date: 09/21/2023 Procedure Type: Transthoracic Echocardiogram Location: OP Height: 160.02 cm Weight: 79.38 kg BSA: 1.83 m2 Heart Rate: bpm BP: 112 / 60 mmHg Pipeliner: TO Referring MD: Miguel Angel Jones MD Coffee Attendant: Miguel Angel Jones MD Symptoms: I10 - Essential (primary) hypertension Study Quality: Fair/Contrast Conclusions: - Normal left ventricular size and systolic function. The visually estimated ejection fraction is between 55-60%. - E/E prime ratio is between 8 and 15 consistent with indeterminate filling pressures. - There is mild septal asymmetric hypertrophy. - Normal right ventricular cavity size and systolic function. Findings Procedure Information Contrast agent, definity, is being given per protocol without apparent complications. Left Ventricle Normal left ventricular size and systolic function. The visually estimated ejection fraction is between 55-60%. There is no evidence of regional wall motion abnormalities. Abnormal diastolic function is noted. Spectral Doppler is indicative of an impaired relaxation filling pattern. E/E prime ratio is between 8 and 15 consistent with indeterminate filling pressures. There is mild septal asymmetric hypertrophy. Right Ventricle Normal right ventricular cavity size and systolic function. Atria The left atrium is normal in size. The right atrium is normal in size. Aortic Valve Normal aortic valve structure and function. There is no aortic valve stenosis. There is no aortic valve regurgitation. Mitral Valve The mitral valve appears normal. There is no mitral valve regurgitation. There is no mitral valve stenosis. Pulmonic Valve The pulmonic valve is likely normal. Tricuspid Valve Normal tricuspid valve structure. There is no tricuspid valve regurgitation. Tricuspid regurgitation envelope is inadequate for calculation of right ventricular systolic pressure. Normal right atrial pressure. Great Vessels All visible segments of the aorta are normal in size. The visualized portions of the pulmonary artery and branches are normal. Venous The inferior vena cava is dilated and collapses greater than 50% with inspiration. Pericardium/Pleural There is no evidence of pericardial effusion. Prior Study Comparison No prior study available for comparison. Measurements 2D Linear Measurements IVSd: 1.14 0.6-0.9/0.6-1.0 cm LVIDd: 4.45 3.9-5.3/4.2-5.9 cm LVIDd Index: 2.43 2.4-3.2/2.2-3.1 cm/m2 LVIDs: 2.94 2.0-3.6 cm LVPWd: 0.83 0.7-1.1 cm LA Diam: 3.60 2.7-3.8/3.0-4.0 cm LAIDs Index: 1.97 1.5-2.3 cm/m2 LV Mass: 183.93 67-162/88-224 g LV Mass Index: 100.51 43-95/49-115 g/m2 LVOT Diam: 2.10 3.0+(-)1.3 cm 2D Systolic Function EF 4C: 64.00 >55% EF 2C: 63.20 >55% EF BiP: 64.60 >55% Mitral Valve MV Pk E: 0.76 MV PK A: 0.86 MV Decel Time: 228.00 E/A: 0.90 E'Lateral: 7.94 E'Medial: 6.20 E/E' Med: 12.20 E/E' Lat: 9.50 PHT: 67.00 MVA PHT: 3.28 Decel [place]: 3.32 Aortic Valve AoV Pk Addi: 1.41 AoV Mn Addi: 0.90 AoV VTI: 0.27 AoV Pk Grad: 8.00 Aov Mn Grad: 4.00 SIVAN Cont.VTI: 2.57 LVOT LVOT Pk Addi: 1.08 LVOT Mn Addi: 0.72 LVOT VTI: 0.20 LVOT Pk Grad: 5.00 LVOT Mn Grad: 2.00 LVOT Diam: 2.10 LVOT Area: 3.46 Diastolic Function MV Pk E: 0.76 MV Pk A: 0.86 E/A: 0.90 E'Medial: 6.20 E/E' Med: 12.20 E' Laterial: 7.94 E/E' Lat: 9.50 Right Ventricle TAPSE (mm): 24.00 TVS' Addi: 18.30 Tricuspid Valve TR Pk Addi: 2.43 TR Pk Grad: 24.00 Great Vessels Aorta Sinus of Valsalva: 3.56 2.0-3.5 cm Ao Asc: 3.40 2.1-3.4 cm Updated in Other Vendor System with Status of Final Miguel Angel Jones MD electronically signed on 09/22/2023 1:15:32 PM with status of Final
== END ==
LOC: HO.CARD 12:41
PROVIDERS: Visit Provider Internal Medicine Cardiovascular Disease
DX: I10 Essential (primary) hypertension (principal)
CPT/HCPCS: 93306; Q9957

== ENCOUNTER → 2023-09-21 12:44 | Outpatient (BNV) | payer OTHER, SELFPAY | PROVIDERS: Visit Provider Internal Medicine Cardiovascular Disease | DX: I51.9 Heart disease, unspecified (principal) | CPT/HCPCS: 93306 ==

== ENCOUNTER 2023-11-07 12:43 | Outpatient (AMB) | payer OTHER, SELFPAY ==
--- NOTE | 2023-11-07 12:48 | MHC.OFFVIS ---
Intake Vital Signs 11/07/23 12:52 Height 5 ft 4 in Weight 174 lb 2.643 oz BMI 29.9 BP 116/60 Blood Pressure Location Lt brachial Position Sitting Pulse 75 Intake Visit Reasons: follow up diverticulosis Intake Note: Thuy presents in the office as a follow up for diverticulitis. CC: [facility]cel [facility] so she grabbed something that is just like it. Gsa Coordinator Required: No Allergies No Known Allergies Allergy (Verified 11/07/23 12:52) Medication List - Last Reconciled 11/07/23 by Lily Portillo PA-C cholecalciferol (vitamin D3) 25 mcg PO DAILY 90 days lisinopril 10 mg PO DAILY 30 days methylcellulose (laxative) (Citrucel) 500 mg PO BID PRN 30 days HPI HPI Comments History of Present Illness Details 78-year-old pleasant very alert, female follows lab Seen 03/01 23-she follows up-she was to have repeat colonoscopy February of this year due to inadequate prep, follow-up colonography prep again was not adequate. She says that she has not been notified to schedule-repeat colonoscopy-she has no GI or general complaints Appetite has been good bowels been normal-she maintains a high-fiber diet she has not had any issues She had an echocardiogram -she is otherwise well . She continues to work She travels , stays active She has been taking MiraLax as needed with very good response CT/CT colonography IMPRESSION: Limited study. Large amount material within the colon precludes assessment for polyps or small/moderate sized masses. Colonic diverticulosis. Code(s): R93.3 - Abnormal findings on diagnostic imaging of other parts of digestive tract Plan Colonoscopy- August 2023- 6 months- Dr. ALEJANDRO extended prep Miralax bid x 5 days prior to prep day= MG split PFSH Medical History (Updated 11/07/23 @ 13:36 by Lily Portillo PA-C) No pertinent past medical history Surgical History Hx of colonoscopy Social [facility] Alcohol intake: current Patient Tobacco Use Status: Former Tobacco user e-Cigarette/Vaping Use: Never Used service: No Current occupational status: employed Current occupation: [employer] Cognitive needs: No Hearing needs: No Vision needs: No Review of Systems Const All systems reviewed & are unremarkable except as noted in HPI and below Card Denies chest pain, Denies chest pain at rest, Denies chest pain with activity and Denies dyspnea Resp Denies dyspnea GI Denies abdominal pain, Denies nausea and Denies vomiting Physical Exam Vital Signs: Last Vital Signs Pulse 75 11/07/23 12:52 BP 116/60 11/07/23 12:52 BMI result Body Mass Index 29.9 Const General: cooperative, healthy appearing, comfortable and no acute distress Orientation/consciousness: patient oriented x3 Limitations: no limitations Resp Effort & Inspection: normal respiratory effort and able to speak in complete sentences Auscultation: clear to auscultation bilaterally Cardio Rate: regular rate Rhythm: regular rhythm Heart sounds: S1 normal heart sound present and S2 normal heart sound present Neuro General: patient oriented x3 Psych Appearance: grossly normal Mental Status: mental status grossly normal Speech and movement: Normal speech and movement present Affect: normal affect Attitude: cooperative Thought content: Normal thought content present Insight: Good insight present (Psych) Judgement: Good judgement present (Psych) Results Reviewed Results Reviewed: CT/CT colonography IMPRESSION: Limited study. Large amount material within the colon precludes assessment for polyps or small/moderate sized masses. Colonic diverticulosis. Assessment & Plan Assessment & Plan (1) Abnormal colonoscopy: Comment: Reviewed severe diverticulosis possible SCAD internal hemorrhoids colon polyp Plan: High fiber diet leaflet Avoid straining at stool, epsom salts and sitz bath, anusol supps or cream CT colonography\ might consider trial of meslamine enemas for few months and repeat colonoscopy as well CT/CT colonography IMPRESSION: Limited study. Large amount material within the colon precludes assessment for polyps or small/moderate sized masses. Colonic diverticulosis. Code(s): R93.3 - Abnormal findings on diagnostic imaging of other parts of digestive tract Plan: schedule colonoscopy (2) Diverticulosis of colon: Code(s): K57.30 - Diverticulosis of large intestine without perforation or abscess without bleeding Plan Repeat colonoscopy with Dr. Fani Herrmann Gatorade prep She will take MiraLax 1 to 2 times a day for 1 week prior to colonoscopy Orders: Orders Colonoscopy - GI Use Only Today Medications: New bisacodyl (Dulcolax (bisacodyl)) Day before procedure @ 12 noon Take 4 tablets by mouth followed by large glass of water 20 mg (4 x 5 mg) PO ONCE 1 day PRN 4 tabs 0RF colonoscopy prep Z12.11 - Encounter for screening for malignant neoplasm of colon polyethylene glycol 3350 (Miralax) Take as directed by mouth the day before your procedure. 238 grams PO ONCE 1 day PRN 238 grams 0RF laxative effect Patient Instructions: Repeat colonoscopy with Dr. Alejandro MiraLax Gatorade prep She will take MiraLax 1 to 2 times a day for 1 week prior to colonoscopy Diverticulosis/diverticulitis ER protocol Maintain high-fiber diet Avoid nuts, corn, popcorn ETC Call with questions or concerns Coding Level of Care Code Est Pt Level 3 (97391) Diagnoses Abnormal colonoscopy R93.3 Diverticulosis of colon K57.30 Time Spent (min) 30
[2023-11-07 12:52] VITALS: BP 116/60; PULSE 75; BMI 29.9
== END 2023-11-07 13:29 | disposition home or self-care (01) ==
PROVIDERS: PCP Nurse Practitioner Family; Visit Provider Physician Assistant
DX: R93.3 Abnormal findings on diagnostic imaging of other parts of digestive tract (principal); K57.30 Diverticulosis of large intestine without perforation or abscess without bleeding
CPT/HCPCS: 99213

== ENCOUNTER → 2023-11-07 12:43 | Outpatient (BNVA) | payer OTHER, SELFPAY | PROVIDERS: PCP Nurse Practitioner Family; Visit Provider Physician Assistant ==

== ENCOUNTER 2023-11-14 11:47 | Outpatient (REF) | payer OTHER, SELFPAY | END 2023-11-14 11:48 | disposition home or self-care (01) | LOC: HO.MAMMO 11:47 | PROVIDERS: PCP Nurse Practitioner Family; Visit Provider Nurse Practitioner Family | DX: Z12.31 Encounter for screening mammogram for malignant neoplasm of breast (principal) | CPT/HCPCS: 77063; 77067 ==

== ENCOUNTER → 2023-11-14 12:15 | Outpatient (BNV) | payer OTHER, SELFPAY | PROVIDERS: PCP Nurse Practitioner Family; Visit Provider Radiology Diagnostic Radiology | DX: Z12.31 Encounter for screening mammogram for malignant neoplasm of breast (principal) | CPT/HCPCS: 77063; 77067 ==

== ENCOUNTER 2023-12-19 12:22 | Outpatient (AMB) | payer OTHER, SELFPAY ==
--- NOTE | 2023-12-19 12:26 | A.OFFPC_ITS ---
Vital Signs 12/19/23 12:27 Height 5 ft 4 in Weight 176 lb BMI 30.2 BP 110/60 Blood Pressure Location Rt brachial Position Sitting Respiration 14 Pulse 83 Pulse Source Pulse Oximeter Temp 97.5 F Temp Source Temporal Artery Scan Pulse Oximetry (%) 99 Oxygen Delivery Method Room Air Intake Visit Reasons: 3 mos HTN Intake Note: Patient would like 90 day supply for lisinopril. 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 Required: No Accompanied by: Self / Same As Patient Allergies No Known Allergies Allergy (Verified 12/19/23 12:41) Medication List - Last Reconciled 12/19/23 by Vladimir Owen CNP bisacodyl (Dulcolax (bisacodyl)) 20 mg (4 x 5 mg) PO ONCE PRN 1 day cholecalciferol (vitamin D3) 25 mcg PO DAILY 90 days lisinopril 10 mg PO DAILY 30 days methylcellulose (laxative) (Citrucel) 500 mg PO BID PRN 30 days polyethylene glycol 3350 (Miralax) 238 grams PO ONCE PRN 1 day Tobacco use date assessed: 09/06/23 Fall risk assessment: No Falls in past year Last assessed Fall Risk: 12/19/23 Dental Screening Dental Screen Date: 09/19/23 HPI HPI Comments History of Present Illness Details 78-year-old female presents for hyperten waldemar follow-up She admits to taking lisinopril as prescribed without adverse reactions She offers no complaints and denies acute symptoms at this time [facility] History No pertinent past medical history Surgical History Hx of colonoscopy Social History Household Members: Spouse Both parents involved: No Caregiver staying overnight: No Housing: Condominium Are you a primary manager managed care to a significant other at home: No Do you presently have visiting nurse or other home services: No 75 years or older and lives alone: No Alcohol intake: current Alcohol intake frequency: holidays/special occasions only Alcohol type: wine and hard liquor Patient Tobacco Use Status: Former Tobacco user e-Cigarette/Vaping Use: Never Used Use of substances other than those prescribed or required for medical reasons: No Currently Displaying Signs/Symptoms of Drug Intoxication Withdrawal: No Any prior treatment program specific to substance use: No Have you been hit, kicked, punched, or otherwise hurt by someone within the past year? If so, by whom?: No Do you feel safe in your current relationship?: No Is there a partner from a previous relationship who is making you feel unsafe now?: No Are you made to feel afraid or neglected: No service: No Current occupational status: employed Current occupation: [employer] Cognitive needs: No Hearing needs: No Vision needs: No Questionnaire Thrive Questionnaire Date Thrive assessed: 09/19/23 PACO-7 AMB Questionnaire PACO-7 Date PACO - 7 assessed: 09/19/23 Source: Developed by Drs. Olman Ordonez, Sharita Hidalgo, [place] Pierre and colleagues, with an educational ana from [employer]. Review of Systems Const Details: Const Denies chills, Denies fatigue, Denies fever(s), Denies headache(s) and Denies weakness ENT Denies dizziness and Denies headache(s) Card Denies chest pain, Denies lightheadedness, Denies dyspnea and Denies other (Palpitations) Resp Denies cough, Denies dyspnea, Denies wheezing and Denies other ( shortness of breath) GI Denies abdominal pain, Denies melena, Denies hematochezia, Denies change in bowel habits, Denies dyspepsia and Denies nausea Denies hematuria and Denies dysuria Musc Denies abnormal gait, Denies myalgias, Denies arthralgias, Denies numbness and Denies tingling Skin/Breast Denies rash, Denies unusual bruising and Denies wounds Neuro Denies abnormal gait, Denies dizziness, Denies headache(s), Denies memory loss, Denies numbness, Denies Sensory deficit (Neuro), Denies tingling and Denies weakness Psych Denies anxiety, Denies depression, Denies memory loss Endo Denies cold intolerance, Denies fatigue, Denies heat intolerance, Denies polydipsia and Denies polyuria Aller/Immun Denies wheezing Physical exam (Primary Care) Vital Signs: Last Vital Signs Temp 97.5 F 12/19/23 12:27 Pulse 83 12/19/23 12:27 Resp 14 12/19/23 12:27 BP 110/60 12/19/23 12:27 Pulse Ox 99 12/19/23 12:27 Oxygen Delivery Method Room Air 12/19/23 12:27 BMI result Body Mass Index 30.2 Tobacco/Smoking Status: Tobacco use Status Tobacco use date assessed 09/06/23 12/19/23 12:33 Patient Tobacco Use Status Former Tobacco user 12/19/23 12:33 e-Cigarette/Vaping Use Never Used 12/19/23 12:33 Thrive Assessment: Date of Thrive Assessment Date Thrive assessed 09/19/23 12/19/23 12:33 Const Other: General: no acute distress and well developed Nutritional Appearance: well nourished Orientation/consciousness: patient oriented x3 HENMT Head: Yes normocephalic and Yes atraumatic Eyes General: appearance normal, both eyes and all related structures Pupils: Equal, round and reactive pupils present EOM: EOMs intact bilaterally Resp Effort & Inspection: normal respiratory effort Auscultation: clear to auscultation bilaterally Cardio Rate: regular rate Rhythm: regular rhythm Heart sounds: S1 normal heart sound present, S2 normal heart sound present, no gallops, no murmurs and no rubs GI Palpation (GI): No Abdominal aortic bruit present, Soft to palpation, nontender, No hepatosplenomegaly present and No Rebound tenderness present Auscultation: normal bowel sounds General: Yes no CVA tenderness Back/Spine/Pelvis Back: no CVA tenderness Cervical Spine: cervical ROM normal and No Cervical spine tenderness Thoracic/Lumbar Spine: thoraco-lumbar ROM normal, No pain with thoraco-lumbar ROM, No thoracic spinal tenderness and No lumbar spinal tenderness Extrem General: Yes normal to inspection, No edema and No calf tenderness Skin General: warm and dry. Normal skin color. Normal skin turgor Neuro General: patient oriented x3, gait normal and no focal neuro deficit Cranial nerves: Yes Equal, round and reactive pupils present Cognition (Neuro): normal cognition Gait exam (Neuro): Normal gait present Sensory Exam: No Sensory deficit (Neuro) Psych Appearance: grossly normal Affect: normal affect Attitude: cooperative Thought process: Normal thought process present Assessment and Plan Assessment & Plan (1) Essential hypertension: Code(s): I10 - Essential (primary) hypertension Plan: Blood pressure is 110/60, within goal of less than 140/90 Continue current treatment regimen Low-sodium diet encouraged Follow-up in 3 months or return sooner with symptoms or concerns Verbalized understanding and agreed with treatment plan (2) High cholesterol: Code(s): E78.00 - Pure hypercholesterolemia, unspecified Plan: Recent lipid panel level is normal. Triglyceride, total cholesterol, LDL, and HDL levels are 66, 185, 105, and 67 respectively Advised to limit foods high in saturated fat and avoid foods high in trans fat Routine exercise encouraged Encouraged to get fasting lipid panel blood work done before next visit Verbalized understanding and agreed with treatment plan Orders: Orders Lipid Panel 3 Months E78.00 - Pure hypercholesterolemia, unspecified Medications: Changed From lisinopril 10 mg PO DAILY 30 days 30 tabs 3RF To lisinopril 10 mg PO DAILY 90 days 90 tabs 1RF Coding Level of Care Code Est Pt Level 4 (84008) Complex EM visit Add On G2211 Diagnoses Essential hypertension I10 High cholesterol E78.00
[2023-12-19 12:27] VITALS: BP 110/60; PULSE 83; RESP 14; TEMP 36.4; O2SAT 99; BMI 30.2
== END 2023-12-19 12:51 | disposition home or self-care (01) ==
PROVIDERS: PCP Nurse Practitioner Family; Visit Provider Nurse Practitioner Family
DX: I10 Essential (primary) hypertension (principal); E78.00 Pure hypercholesterolemia, unspecified
CPT/HCPCS: 99214; G2211

== ENCOUNTER 2024-03-26 09:55 | Outpatient (AMB) | payer OTHER, SELFPAY ==
--- NOTE | 2024-03-26 09:59 | A.OFFPC_ITS ---
Vital Signs 03/26/24 10:06 Height 5 ft 4 in Weight 171 lb 8 oz BMI 29.4 BP 102/58 L Blood Pressure Location Rt brachial Position Sitting Respiration 16 Pulse 83 Pulse Source Pulse Oximeter Temp 97.5 F Temp Source Oral Pulse Oximetry (%) 96 Oxygen Delivery Method Room Air Intake Visit Reasons: 3 mos HTN, HLD Intake Note: patient here for 3 month follow up on HTN and HLD. Preschool Director Required: No Is last menstrual period known: No Post menopausal: No Patient : No Allergies No Known Allergies Allergy (Verified 03/26/24 10:03) Tobacco use date assessed: 03/26/24 Fall risk assessment: No Falls in past year Last assessed Fall Risk: 03/26/24 Dental Screening Dental Screen Date: 03/26/24 Did you have a dental visit in the last 12 months?: Yes Did you have a dental problem in the last 6 months where you did not have access to dental care?: No Was dental information given to patient?: Patient has dentist HPI HPI Comments History of Present Illness Details 78-year-old female presents for hyperten waldemar and hyperlipidemia follow- up She admits to taking lisinopril as prescribed without adverse reactions She notes that she has been eating and sleeping well. She has been walking daily She denies acute symptoms at this time She did not get lipid panel blood work done as planned on her last visit but plans to do so as soon as possible [facility] Medical History No pertinent past medical history Surgical History Hx of colonoscopy Social History Household Members: Spouse Both parents involved: No Caregiver staying overnight: No Housing: Condominium Are you a primary manager home healthcare to a significant other at home: No Do you presently have visiting nurse or other home services: No 75 years or older and lives alone: No Alcohol intake: current Alcohol intake frequency: holidays/special occasions only Alcohol type: wine and hard liquor Patient Tobacco Use Status: Former Tobacco user e-Cigarette/Vaping Use: Never Used Second Hand Smoke Exposure: No service: No Current occupational status: employed Current occupation: [employer] Cognitive needs: No Hearing needs: No Vision needs: No Questionnaire PHQ-9 Over the last 2 weeks, how often have you been bothered by any of the following problems? 1. Little interest or pleasure in doing things: not at all 2. Feeling down, depressed, or hopeless: not at all 3. Trouble falling or staying asleep, or sleeping too much: not at all 4. Feeling tired or having little energy: not at all 5. Poor appetite or overeating: not at all 6. Feeling bad about yourself - or that you are a failure or have let yourself or your family down: not at all 7. Trouble concentrating on things, such as reading the newspaper or watching television: not at all 8. Moving or speaking so slowly that other people could have noticed. Or the opposite - being so fidgety or restless that you have been moving around a lot more than usual: not at all 9. Thoughts that you would be better off or of hurting yourself in some way: not at all Total score: 0 Depression Screening Done: Yes [id number] - PHQ-9 Billing: Yes Source: Developed by Drs. Olman Ordonez, Sharita Hidalgo, [place] Pierre and colleagues, with an educational ana from [employer]. Thrive Questionnaire Date Thrive assessed: 09/19/23 AUDIT C Alcohol Use Questionnaire (AUDIT-C) 1. How often do you have a drink containing alcohol?: Never Total Score: 0 Score Reviewed/Action Taken: Yes PACO-7 AMB Questionnaire PACO-7 Date PACO - 7 assessed: 09/19/23 Source: Developed by Drs. Olman Ordonez, Sharita Hidalgo, [place] Pierre and colleagues, with an educational ana from [employer]. Review of Systems Const Details: Const Denies chills, Denies fatigue, Denies fever(s), Denies headache(s) and Denies weakness ENT Denies dizziness and Denies headache(s) Card Denies chest pain, Denies lightheadedness, Denies dyspnea and Denies other (Palpitations) Resp Denies cough, Denies dyspnea, Denies wheezing and Denies other ( shortness of breath) GI Denies abdominal pain, Denies melena, Denies hematochezia, Denies change in bowel habits, Denies dyspepsia and Denies nausea Denies hematuria and Denies dysuria Musc Denies abnormal gait, Denies myalgias, Denies arthralgias, Denies numbness and Denies tingling Skin/Breast Denies rash, Denies unusual bruising and Denies wounds Neuro Denies abnormal gait, Denies dizziness, Denies headache(s), Denies memory loss, Denies numbness, Denies Sensory deficit (Neuro), Denies tingling and Denies weakness Psych Denies anxiety, Denies depression, Denies memory loss Endo Denies cold intolerance, Denies fatigue, Denies heat intolerance, Denies polydipsia and Denies polyuria Aller/Immun Denies wheezing Physical exam (Primary Care) Tobacco/Smoking Status: Tobacco use Status Tobacco use date assessed 09/06/23 03/26/24 09:59 Patient Tobacco Use Status Former Tobacco user 03/26/24 09:59 e-Cigarette/Vaping Use Never Used 03/26/24 09:59 Thrive Assessment: Date of Thrive Assessment Date Thrive assessed 09/19/23 03/26/24 09:59 Const Other: General: no acute distress and well developed Nutritional Appearance: well nourished Orientation/consciousness: patient oriented x3 HENMT Head: Yes normocephalic and Yes atraumatic Eyes General: appearance normal, both eyes and all related structures Pupils: Equal, round and reactive pupils present EOM: EOMs intact bilaterally Resp Effort & Inspection: normal respiratory effort Auscultation: clear to auscultation bilaterally Cardio Rate: regular rate Rhythm: regular rhythm Heart sounds: S1 normal heart sound present, S2 normal heart sound present, no gallops, no murmurs and no rubs GI Palpation (GI): No Abdominal aortic bruit present, Soft to palpation, nontender, No hepatosplenomegaly present and No Rebound tenderness present Auscultation: normal bowel sounds General: Yes no CVA tenderness Back/Spine/Pelvis Back: no CVA tenderness Cervical Spine: cervical ROM normal and No Cervical spine tenderness Thoracic/Lumbar Spine: thoraco-lumbar ROM normal, No pain with thoraco-lumbar ROM, No thoracic spinal tenderness and No lumbar spinal tenderness Extrem General: Yes normal to inspection, No edema and No calf tenderness Skin General: warm and dry. Normal skin color. Normal skin turgor Neuro General: patient oriented x3, gait normal and no focal neuro deficit Cranial nerves: Yes Equal, round and reactive pupils present Cognition (Neuro): normal cognition Gait exam (Neuro): Normal gait present Sensory Exam: No Sensory deficit (Neuro) Psych Appearance: grossly normal Affect: normal affect Attitude: cooperative Thought process: Normal thought process present Assessment and Plan Assessment & Plan (1) Essential hypertension: Code(s): I10 - Essential (primary) hypertension Plan: Blood pressure today is 102/58, within goal of less than 140/90 Continue current treatment regimen Low-sodium diet and routine exercise encouraged Follow-up in 3 months or sooner with symptoms or concerns Verbalized understanding and agreed with the treatment plan (2) High cholesterol: Code(s): E78.00 - Pure hypercholesterolemia, unspecified Plan: Advised to get fasting lipid panel blood work done Will review results and make changes as needed Healthy diet and routine exercise encouraged Verbalized understanding and agreed with the treatment plan Coding Level of Care Code Est Pt Level 4 (18581) Diagnoses Essential hypertension I10 High cholesterol E78.00
[2024-03-26 10:06] VITALS: BP 102/58; PULSE 83; RESP 16; TEMP 36.4; O2SAT 96; BMI 29.4
== END 2024-03-26 10:24 | disposition home or self-care (01) ==
PROVIDERS: PCP Nurse Practitioner Family
DX: I10 Essential (primary) hypertension (principal); E78.00 Pure hypercholesterolemia, unspecified
CPT/HCPCS: 99214

== ENCOUNTER 2024-03-28 08:18 | Outpatient (REF) | payer OTHER, SELFPAY ==
[2024-03-28 12:55] LABS: Cholesterol 192 mg/dL (<200); HDL Cholesterol 60 mg/dL (>40); LDL Cholesterol Calculated 117 mg/dL (<100); Triglycerides 76 mg/dL (<150)
== END 2024-03-28 08:19 | disposition home or self-care (01) ==
LOC: HO.HMGCLDS 08:18
PROVIDERS: PCP Nurse Practitioner Family; Visit Provider Nurse Practitioner Family
DX: E78.00 Pure hypercholesterolemia, unspecified (principal)
CPT/HCPCS: 36415; 80061

== ENCOUNTER 2024-04-24 14:02 | Emergency (ER) | payer OTHER, SELFPAY ==
--- NOTE | ~2024-04-24 | CT_ITS ---
EXAMINATION: CT ABDOMEN AND PELVIS WITHOUT CONTRAST CLINICAL INFORMATION: sharp epigastric pain, diarrhea. COMPARISON: No pertinent prior studies are available for comparison. TECHNIQUE: Multidetector volumetric imaging was performed from the superior aspect of the liver through the pubic symphysis without contrast per request. Sagittal and coronal reformatted images were obtained on the technologist workstation. This CT examination was performed using dose optimization techniques as appropriate, variously including the following: *Automated exposure control *Adjustment of mA and/or kV according to patient size (this includes techniques or standardized protocols for targeted exams where dose is matched to indication/reason for exam; i.e. extremities or head) *Use of iterative reconstruction technique DLP: 585 mGy-cm. FINDINGS: LUNG BASES: The visualized lung bases are unremarkable. LIVER, GALLBLADDER, BILIARY TREE: The non-contrast liver is normal in size, shape, and attenuation. No focal hepatic lesion or biliary ductal dilatation is present. The gallbladder is unremarkable with no evidence of radiopaque gallstones, gallbladder wall thickening, or obvious pericholecystic inflammatory changes. PANCREAS: Unremarkable. SPLEEN: Unremarkable. ADRENAL GLANDS: Unremarkable. KIDNEYS AND URETERS: The kidneys are normal in size, shape, and attenuation. No hydronephrosis, hydroureter, or perinephric stranding. No calculi. BLADDER: Unremarkable. GASTROINTESTINAL TRACT: Colon is decompressed distally which limits assessment for colonic wall thickening. There is scattered colonic diverticulosis more so in the sigmoid colon. There is very subtle stranding next to the proximal sigmoid colon. Subtle diverticulitis to be difficult to exclude in this region. ABDOMINAL WALL: No significant hernia is appreciated. LYMPHOVASCULAR STRUCTURES: No lymphadenopathy. The aorta is unremarkable.. PELVIC VISCERA: Unremarkable. OSSEUS STRUCTURES: Degenerative changes in the spine. CT/CT abdomen pelvis wo IV con IMPRESSION: There is scattered diverticulosis more so in the sigmoid colon. There is very subtle stranding to the fat adjacent to the proximal sigmoid colon. Early diverticulitis would be difficult to exclude in this setting. Electronically signed by: Brian Crespo MD 04/24/2024 07:41 PM EDT
--- NOTE | ~2024-04-24 | XR_ITS ---
EXAMINATION: XR CHEST CLINICAL INFORMATION: Chest pain COMPARISON: None available. TECHNIQUE: 2 views of the chest were obtained. FINDINGS: No focal consolidation. No pneumothorax. Trachea is midline. Cardiomediastinal silhouette is not enlarged. Atherosclerotic calcifications of the aortic arch. No large pleural effusion. Slight exaggeration of the thoracic kyphosis with multilevel degenerative changes. Soft tissues are unremarkable. XR/XR chest 2V IMPRESSION: 1. No acute cardiopulmonary process. 2. Slight exaggeration of the thoracic kyphosis with multilevel degenerative changes. Electronically signed by: Rani Rodriguez MD 04/24/2024 04:13 PM EDT
[2024-04-24 14:54] VITALS: BP 141/73; PULSE 63; RESP 18; O2SAT 100; BMI 29.9
--- NOTE | 2024-04-24 14:55 | ECG_ITS ---
Test Reason : CHEST PAIN Blood Pressure : / mmHG Vent. Rate : 059 BPM Atrial Rate : 059 BPM P-R Int : 162 ms QRS Dur : 080 ms QT Int : 414 ms P-R-T Axes : 023 -02 026 degrees QTc Int : 409 ms Sinus bradycardia Otherwise normal ECG No previous ECGs available Referred By: Emily Mcfarland Electronically Signed By:FABIO RODRIGUEZ
--- NOTE | 2024-04-24 14:56 | ED_ITS ---
HPI - General Adult General Chief complaint: Abdominal Pain Stated complaint: SOB, abd pain Time Seen by Provider: 04/24/24 17:21 Source: patient Mode of arrival: ambulatory Limitations: no limitations History of Present Illness ED Provider: LAM DUGGAN PA-C HPI narrative: 78 year old female with pmhx significant for HTN and diverticulosis presents to the ED today for evaluation of multiple concerns. Patient reports that while bending over to garden around noon today, she had sudden onset sharp substernal chest pain which last 4-5 minutes before completely resolving. Denies taking anything for the pain at home. Once her chest pain resolved, she began having intense cramping to epigastric region which lasted for some time before resolving. She now endorses 2 episodes of diarrhea. Denies history of similar. Denies fever, chills, headache, dizziness, vision changes, nausea, vomiting, constipation, dysuria, hematuria, flank pain. Related Data Previous Rx's ?Medication ?Instructions ?Recorded polyethylene glycol 3350 17 238 g PO ONCE PRN laxative effect 11/07/23 gram/dose oral powder (Miralax) 1 day #238 grams cholecalciferol (vitamin D3) 25 25 mcg PO DAILY 90 days #90 tabs 12/01/23 mcg (1,000 unit) tablet lisinopril 10 mg tablet 10 mg PO DAILY 90 days #90 tabs 12/19/23 amoxicillin 875 mg-potassium 1 tab PO BID #14 tabs 04/24/24 clavulanate 125 mg tablet ibuprofen 600 mg tablet 600 mg PO Q8H PRN fever or pain 04/24/24 #20 tabs Allergies Allergy/AdvReac Type Severity Reaction Status Date / Time No Known Allergies Allergy Verified 04/24/24 14:55 Review of Systems 2 Review of Systems: Constitutional: No fever, chills, fatigue, night sweats, weight changes ENT/Mouth: No ear pain, hearing loss, nasal congestion, sinus pain, rhinorrhea, sore throat Eyes: No eye pain, swelling, redness, vision changes, discharge Cardio: No chest pain, palpitations, GOODE, orthopnea, peripheral edema Pulm: No SOB, cough, sputum, wheezing, dyspnea, hemoptysis GI: No nausea, vomiting, hematemesis, abdominal pain, constipation, hematochezia, melena, +diarrhea : No irregular bleeding, dysuria, frequency, urgency, hesitancy, hematuria, flank pain, urinary flow changes, urinary incontinence or retention MSK: No back pain, neck pain, joint pain, myalgias Skin: No lesions, rashes Neuro: No weakness, numbness, paresthesias, LOC, dizziness, headache Psych: No anxiety/panic, depression, SI/HI, AH/VH All other systems reviewed and are negative. [facility] Past Medical History Attestation statement: The following information was validated with the patient. Source: old records reviewed and nursing notes reviewed Medical History No pertinent past medical history Surgical History Hx of colonoscopy Social History Social History Household Members: Spouse Housing: [facility] Are you a primary manager wound care to a significant other at home: No Do you presently have visiting nurse or other home services: No Alcohol intake: current Alcohol intake frequency: holidays/special occasions only Alcohol type: wine and hard liquor Patient Tobacco Use Status: Former Tobacco user Smoked in Last 30 Days: No e-Cigarette/Vaping Use: Never Used Second Hand Smoke Exposure: No Use of substances other than those prescribed or required for medical reasons: No Advance Directives: No Advance Directives Information Provided: No service: No Current occupational status: employed Current occupation: [employer] Cognitive needs: No Hearing needs: No Vision needs: No Physical Exam ED Vital Signs: Vital Signs - 24 hr 04/24/24 14:54 04/24/24 20:15 Temperature 97.8 F Pulse Rate 63 66 Respiratory Rate 18 20 Blood Pressure 141/73 H 140/70 H Pulse Oximetry 100 100 Oxygen Delivery Method Room Air Room Air BMI result Body Mass Index 29.9 Patient hypertensive to 141/73, vitals otherwise WNL General: Well appearing, in no acute distress. Skin: Warm, dry, intact. No rashes or lesions. Head: Normocephalic, atraumatic. Neck: Supple without LAD. FROM. Trachea midline.? Cardiac: Chest wall symmetric. RRR. No MRG. No JVD. Lungs: Normal respiratory effort without accessory muscle use. CTA bilaterally. No rales, rhonchi, or wheezes.? Abdomen: Soft nondistended, nontender to palpation, no rebound tenderness or guarding. Normoactive bowel sounds x4 Back: No midline spinous or paraspinal tenderness. No step off deformity. Ext: Upper and lower extremities atraumatic, without tenderness, deformity, swelling or erythema. Full ROM throughout. no calf tenderness bilaterally. Neuro: AOx3. Normal speech. Ambulating with steady gait. Psych: Appropriate mood and affect. Responds appropriately to questions. Course Course Course Narrative: This is a Rapid Medical Examination (RME) performed by Malathi Mcfarland PA-C in triage. Full HPI, ROS, assessment and treatment plan per primary provider in the Main ED. 78 yo female with history of HTN, HLD who presents to the ER for evaluation of an episode of intense epigastric abdominal/central lower chest pain that occurred today while she was bent over gardening. She reports the pain lasted 3-4 minutes, was associated with shortness of breath and difficulty breathing. He was preceded by intense abdominal cramping. He has never had a pain episode like this before. Denies any current pain. She feels back to baseline. Plan: EKG, chest x-ray, lab workup Reevaluation(s) Reevaluation #1: 1830 -- CBC with slight leukocytosis to 12.8 without left shift. No anemia. H&H stable. Chemistry without acute electrolyte abnormality requiring intervention. Random glucose 119. Normal liver function. Troponin undetectable x2. BNP WNL at 97. No concern for CHF. Lipase WNL. No evidence of pancreatitis. Urine with trace amount of blood, 3-5 RBCs. Small amount of leukocyte esterase, 0-5 urine white blood cells without urine bacteria. Will treat for urinary tract infection. She tested negative for COVID. Chest x-ray without infiltrate or consolidation to suggest pneumonia. EKG showing sinus bradycardia at a rate of 59 beats per minute, QT 414, QTC 409, no acute ischemic changes or ST elevations. given slight white count along with abdominal pain/ diarrhea with hx of diverticulosis, ct abd/pelvis ordered to r/o acute diverticulitis. imaging pending. >> Patient stable at the end of my shift - sign out given to Emily PLATT pending ct abdomen/ pelvis and disposition. Time: 19:51 Reevaluation #3: CT/CT abdomen pelvis wo IV con IMPRESSION: There is scattered diverticulosis more so in the sigmoid colon. There is very subtle stranding to the fat adjacent to the proximal sigmoid colon. Early diverticulitis would be difficult to exclude in this setting. Will start on oral Augmentin and ibuprofen. Patient counseled on results of her CT scan and management as well as return precautions. Stable for discharge home. Medications Administered Discontinued Medications Generic Name Dose Route Start Last Admin Trade Name Capoq PRN Reason Stop Dose Admin Amoxicillin/Clavulanate Potassium 875 mg 04/24/24 19:48 04/24/24 20:07 Amoxicillin/Potassium Clav 875 Mg Tablet PO 04/24/24 19:49 875 mg ONCE ONE Administration Ibuprofen 600 mg 04/24/24 19:48 04/24/24 20:07 Ibuprofen 600 Mg Tablet PO 04/24/24 19:49 600 mg ONCE ONE Administration Medical Decision Making Medical Decision Making [facility] Narrative: 78 year old female with pmhx significant for HTN and diverticulosis presents to the ED today for evaluation of multiple concerns. Slightly hypertensive, vitals otherwise wnl. Exam benign. History without high risk features (not substernal, no exertional component, not relieved with rest).? Exam without evidence of volume overload. EKG without signs of active ischemia. HEART score: 3.? Given the timing of pain to ED presentation, plan to send single delta troponin to evaluate for NSTEMI. Presentation not consistent with acute PE, pneumothorax, thoracic aortic dissection, cardiac effusion or tamponade. Concern for gastroenteritis, PUD, diverticulosis/ diverticulitis. Plan: labs, troponin, EKG, CXR, ct abd/pelvis, re-evaluation. Differential Diagnosis Differential Diagnoses: The differential diagnosis associated with the presentation includes As above Admission/Observation Not indicated Lab Data [facility] Lab Attestation statement: I reviewed the patient's lab results. As above 04/24/24 15:14 04/24/24 15:14 Labs: Lab Results 04/24/24 04/24/24 04/24/24 Range/Units 15:14 15:19 17:49 WBC 12.8 H (4.8-10.8) X10*3/uL RBC 3.96 L (4.20-5.50) X10*6/uL Hgb 12.3 (12.0-16.0) g/dl Hct 37.4 (37.0-47.0) % MCV 94.4 (80.0-98.0) fL MCH 31.1 (27.0-33.0) pg MCHC 32.9 (31.0-35.0) g/dl RDW 14.9 (11.0-16.0) % Plt Count 310 (160-400) X10*3/uL MPV 10.5 (9.4-12.3) fL Immature Gran % (Auto) 0.4 (0.0-0.4) % Neut % (Auto) 76.4 H (45-73) % Lymph % (Auto) 15.8 L (20-40) % Roberts % (Auto) 6.4 (2-11) % Eos % (Auto) 0.5 (0-4) % Baso % (Auto) 0.5 (0-2) % Lymph # (Auto) 2.0 (1.2-4.9) X10*3/uL Roberts # (Auto) 0.8 (0.1-1.2) X10*3/uL Eos # (Auto) 0.1 (0.0-0.4) X10*3/uL Baso # (Auto) 0.1 (0.0-0.2) X10*3/uL Abs Immat Gran (auto) 0.05 H (0.00-0.03) X10*3/uL Absolute Neuts (auto) 9.8 H (2.0-8.3) x10*3/uL Absolute Nucleated RBC 0.000 (0.0-0.012) X10*3/uL Nucleated RBC % (auto) 0.0 (0.0-0.2) /100WBC Sodium 142 (135-145) mmol/L Potassium 4.3 (3.3-5.1) mmol/L Chloride 106 (96-108) mmol/L Carbon Dioxide 27 (22-29) mmol/L Anion Gap 13 (12-20) BUN 30 H (9-16) mg/dL Creatinine 1.34 (0.5-1.4) mg/dL Estim Creat Clear Calc 36.3 Estimated GFR 38 Random Glucose 119 H (60-115) mg/dL Calcium 9.9 (8.4-10.2) mg/dL Magnesium 2.3 (1.6-2.6) mg/dL Total Bilirubin 1.0 (0.0-1.0) mg/dL Direct Bilirubin 0.3 (0.0-0.5) mg/dL AST 21 (5-31) U/L ALT 19 (0-31) U/L Alkaline Phosphatase 49 (39-117) U/L Troponin I High Sens < 2.7 < 2.7 (<3.5-17.0) ng/L B-Natriuretic Peptide 97 (<100) pg/mL Total Protein 7.3 (6.5-8.0) g/dL Albumin 4.3 (3.5-5.0) g/dL Lipase 41 (8-78) U/L Urine Color Yellow Urine Appearance Clear Urine pH 5.5 (5.0-9.0) Ur Specific [place] 1.015 (1.005-1.025) Urine Protein Negative (Neg-Trace) mg/dL Urine Glucose (UA) Negative (Negative) mg/dL Urine Ketones Negative (Negative) mg/dL Urine Blood Trace H (Negative) Urine Nitrite Negative (Negative) Ur Leukocyte Esterase Small (1+) H (Negative) Urine RBC 3-5 H (0-2) /HPF Urine WBC 0-5 (0-5) /HPF Ur Squamous Epith Cells 0-2 (0-2) /HPF Urine Bacteria None Seen (None Seen) Hyaline Casts 0-2 (0-2) /LPF COVID-19 (ROCHELLE) Negative (Negative) COVID-19 Clin Com See Note Independent Interpretation I performed an independent interpretation of an: EKG, Plain X-Ray and CT Scan Interpretation: EKG showing sinus bradycardia with a rate of 59 beats per minute, QT 414, QTC 409, no acute ischemic changes or ST elevations. Chest x-ray without focal infiltrate or consolidation, agree with radiologist's interpretation Radiology Impression Discussion of test interpretation with radiology: I have reviewed the radiologist's reading. Radiologist Impression: EXAMINATION: XR CHEST CLINICAL INFORMATION: Chest pain COMPARISON: None available. TECHNIQUE: 2 views of the chest were obtained. FINDINGS: No focal consolidation. No pneumothorax. Trachea is midline. Cardiomediastinal silhouette is not enlarged. Atherosclerotic calcifications of the aortic arch. No large pleural effusion. Slight exaggeration of the thoracic kyphosis with multilevel degenerative changes. Soft tissues are unremarkable. XR/XR chest 2V IMPRESSION: 1. No acute cardiopulmonary process. 2. Slight exaggeration of the thoracic kyphosis with multilevel degenerative changes. Electronically signed by: Rani Rodriguez MD 04/24/2024 04:13 PM EDT RP EXAMINATION: CT ABDOMEN AND PELVIS WITHOUT CONTRAST CLINICAL INFORMATION: sharp epigastric pain, diarrhea. COMPARISON: No pertinent prior studies are available for comparison. TECHNIQUE: Multidetector volumetric imaging was performed from the superior aspect of the liver through the pubic symphysis without contrast per request. Sagittal and coronal reformatted images were obtained on the technologist workstation. This CT examination was performed using dose optimization techniques as appropriate, variously including the following: *Automated exposure control *Adjustment of mA and/or kV according to patient size (this includes techniques or standardized protocols for targeted exams where dose is matched to indication/reason for exam; i.e. extremities or head) *Use of iterative reconstruction technique DLP: 585 mGy-cm. FINDINGS: LUNG BASES: The visualized lung bases are unremarkable. LIVER, GALLBLADDER, BILIARY TREE: The non-contrast liver is normal in size, shape, and attenuation. No focal hepatic lesion or biliary ductal dilatation is present. The gallbladder is unremarkable with no evidence of radiopaque gallstones, gallbladder wall thickening, or obvious pericholecystic inflammatory changes. PANCREAS: Unremarkable. SPLEEN: Unremarkable. ADRENAL GLANDS: Unremarkable. KIDNEYS AND URETERS: The kidneys are normal in size, shape, and attenuation. No hydronephrosis, hydroureter, or perinephric stranding. No calculi. BLADDER: Unremarkable. GASTROINTESTINAL TRACT: Colon is decompressed distally which limits assessment for colonic wall thickening. There is scattered colonic diverticulosis more so in the sigmoid colon. There is very subtle stranding next to the proximal sigmoid colon. Subtle diverticulitis to be difficult to exclude in this region. ABDOMINAL WALL: No significant hernia is appreciated. LYMPHOVASCULAR STRUCTURES: No lymphadenopathy. The aorta is unremarkable.. PELVIC VISCERA: Unremarkable. OSSEUS STRUCTURES: Degenerative changes in the spine. CT/CT abdomen pelvis wo IV con IMPRESSION: There is scattered diverticulosis more so in the sigmoid colon. There is very subtle stranding to the fat adjacent to the proximal sigmoid colon. Early diverticulitis would be difficult to exclude in this setting. Electronically signed by: Brian Crespo MD 04/24/2024 07:41 PM EDT RP Independent Historian Clinical information obtained from an independent historian. History obtained from or confirmed by: Spouse () External Record Review External record reviewed: Inpatient record, Office record, Outpatient record, Prior outpatient labs, Prior outpatient radiology, Primary care record and Outside ED record Chronic Conditions Patient?s care impacted by: Hypertension and Other (diverticulosis) Social Determinants Patient?s care significantly limited by Social Determinants of Health including: Other Social Determinant of Health Critical Care Time Critical Care Time Critical Care Time: No Discharge Plan Discharge Clinical Impression: Atypical chest pain, Diverticulosis of colon, Diverticulitis Patient Disposition: Home, Self-Care Instructions: Chest Pain (DC), Diverticulitis (ED), Diverticulitis Diet (ED), Abdominal Pain (ED) Additional Instructions: Your lab workup today was reassuring. Take the prescribed antibiotic for possible early and mild diverticulitis. Also recommend taking the prescribed anti-inflammatory medication, this will help with pain and swelling in the colon. Stick to a liquid diet for the next 24 hours, then adhere to a diverticulitis diet, slowly advance her diet as tolerated. Follow-up with your doctor. If you develop new or worsening symptoms call 911 or come back to the ER for further evaluation. CT/CT abdomen pelvis wo IV con IMPRESSION: There is scattered diverticulosis more so in the sigmoid colon. There is very subtle stranding to the fat adjacent to the proximal sigmoid colon. Early diverticulitis would be difficult to exclude in this setting. Prescriptions: New amoxicillin-pot clavulanate 875-125 mg tablet 1 tab PO BID Qty: 14 0RF ibuprofen 600 mg tablet 600 mg PO Q8H PRN (Reason: fever or pain) Qty: 20 0RF No Action cholecalciferol (vitamin D3) 25 mcg (1,000 unit) tablet 25 mcg PO DAILY 90 Days Qty: 90 4RF lisinopril 10 mg tablet 10 mg PO DAILY 90 Days Qty: 90 1RF polyethylene glycol 3350 [Miralax] 17 gram/dose powder 238 g PO ONCE PRN (Reason: laxative effect) 1 Days Qty: 238 0RF Rx Instructions: Take as directed by mouth the day before your procedure. Interventions: ED Discharge Assessment Last Done: 04/24/24 20:15 Discharge Date/Time: 04/24/24 20:16 Print Language: Amharic
[2024-04-24 15:32] LABS: MANUAL DIFF FLAG NO
[2024-04-24 15:37] LABS: Appearance Urine Clear; Color Urine Yellow; Glucose Urine UA Negative (Negative); Leukocyte Esterase Urine Small (1+) (Negative); Nitrite Urine Negative (Negative); PH 5.5 (5.0-9.0); Specific Gravity - Urine 1.015 (1.005-1.025); UMIC TRIGGER UACC YES; Urine Blood Trace (Negative); Urine Ketones Negative (Negative); Urine Protein Negative (Neg-Trace)
[2024-04-24 15:41] LABS: Basophils Absolute Auto 0.1 X10*3/uL (0.0-0.2); Basophils Percent Auto 0.5 % (0-2); Eosinophils Absolute Auto 0.1 X10*3/uL (0.0-0.4); Eosinophils Percent Auto 0.5 % (0-4); Hematocrit 37.4 % (37.0-47.0); Hemoglobin 12.3 g/dl (12.0-16.0); Imm Gran Abs Auto 0.05 X10*3/uL (0.00-0.03); Imm Gran Pct Auto 0.4 % (0.0-0.4); Lymphocytes Percent Auto 15.8 % (20-40); Mean Corpuscular HGB Conc 32.9 g/dl (31.0-35.0); Mean Corpuscular Hemoglobin 31.1 pg (27.0-33.0); Mean Corpuscular Volume 94.4 fL (80.0-98.0); Mean Platelet Volume 10.5 fL (9.4-12.3); Monocytes Absolute Auto 0.8 X10*3/uL (0.1-1.2); Monocytes Percent Auto 6.4 % (2-11); Neutrophils Absolute Auto 9.8 x10*3/uL (2.0-8.3); Neutrophils Percent Auto 76.4 % (45-73); Platelet Count 310 X10*3/uL (160-400); Red Blood Count 3.96 X10*6/uL (4.20-5.50); Red Cell Distribution Width 14.9 % (11.0-16.0); White Blood Count 12.8 X10*3/uL (4.8-10.8)
[2024-04-24 15:46] LABS: Bacteria Urine None Seen (None Seen); Hyaline Casts Urine 0-2 /LPF (0-2); Squamous Epithelial Cell Urine 0-2 /HPF (0-2); UACC Culture Trigger YES; WBC Urine 0-5 /HPF (0-5)
[2024-04-24 15:49] LABS: COVID-19 Test Negative (Negative); IDNOW Serial# 58CA691E
[2024-04-24 15:54] LABS: Troponin-I High Sensitivity < 2.7 ng/L (<3.5-17.0)
[2024-04-24 15:58] LABS: Alanine Aminotransferase 19 U/L (0-31); Albumin Level 4.3 g/dL (3.5-5.0); Alkaline Phosphatase 49 U/L (39-117); Anion Gap 13 (12-20); Aspartate Amino Transferase 21 U/L (5-31); Bilirubin Direct 0.3 mg/dL (0.0-0.5); Blood Urea Nitrogen 30 mg/dL (9-16); Calcium 9.9 mg/dL (8.4-10.2); Carbon Dioxide 27 mmol/L (22-29); Chloride 106 mmol/L (96-108); Creatinine Clr Calc Pharmacy 36.3; Estimated Glomerular Filt Rate 38; Glucose Random 119 mg/dL (60-115); Lipase 41 U/L (8-78); Magnesium 2.3 mg/dL (1.6-2.6); Potassium 4.3 mmol/L (3.3-5.1); Sodium 142 mmol/L (135-145); Total Protein 7.3 g/dL (6.5-8.0)
[2024-04-24 16:03] LABS: B Type Natriuretic Peptide 97 pg/mL (<100)
[2024-04-24 18:20] LABS: Troponin-I High Sensitivity < 2.7 ng/L (<3.5-17.0)
[2024-04-24] MEDS: Amoxicillin/Potassium Clav 875 MG TABLET PO (20:07)
[2024-04-24] MEDS: Ibuprofen 600 MG TABLET PO (20:07)
[2024-04-24 20:15] VITALS: BP 140/70; PULSE 66; RESP 20; TEMP 36.6; O2SAT 100
== END 2024-04-24 20:16 | disposition home or self-care (01) ==
PROVIDERS: Physician Assistant; Physician Assistant Medical; Emergency Provider Emergency Medicine; PCP Nurse Practitioner Family
DX: R10.13 Epigastric pain (principal); R07.89 Other chest pain; K57.30 Diverticulosis of large intestine without perforation or abscess without bleeding; K57.32 Diverticulitis of large intestine without perforation or abscess without bleeding; R06.02 Shortness of breath; Z11.52 Encounter for screening for COVID-19; Z79.899 Other long term (current) drug therapy
CPT/HCPCS: 36415; 71046; 74176; 80048; 80076; 81001; 83690; 83735; 83880; 84484; 85025; 87086; 87635; 93005; 99284; 99285

== ENCOUNTER 2024-07-03 09:59 | Outpatient (AMB) | payer OTHER, SELFPAY ==
--- NOTE | 2024-07-03 10:03 | A.OFFPC_ITS ---
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 Employment Required: No Is last menstrual period known: No Post menopausal: No Patient : No Allergies No Known Allergies Allergy (Verified 07/03/24 10:06) Tobacco use date assessed: 07/03/24 Fall risk assessment: No Falls in past year Last assessed Fall Risk: 07/03/24 Dental Screening Dental Screen Date: 07/03/24 Did you have a dental visit in the last 12 months?: Yes Did you have a dental problem in the last 6 months where you did not have access to dental care?: No Was dental information given to patient?: Patient has dentist HPI HPI Comments History of Present Illness Details The patient is a 78-year-old female presenting with a routine evaluation for hypertension and a recent onset cough. The cough, described as dry and sporadic, commenced on Tuesday, approximately three days before the consultation. She denies any associated symptoms such as fever, sore throat, or body aches. No known sick contacts were reported, although she recently traveled on an airplane. The patient is concerned about the cough potentially affecting her scheduled colonoscopy. She has undergone a COVID test at home, which returned negative. Her ongoing medical regimen includes Lisinopril 10 mg daily for the management of hypertension. Unfortunately, she did not take her antihypertensive medication the morning of the visit but adheres to the regimen daily, in conjunction with vitamin D supplementation. She follows a low-salt diet as part of her hypertension management. The patient does not routinely monitor her blood pressure at home. [facility] Medical History (Updated 07/03/24 @ 10:34 by Vladimir Owen CNP) Osteopenia Diverticulosis Elevated cholesterol HTN (hypertension) Surgical History Hx of colonoscopy Social History Household Members: Spouse Housing: Condominium Are you a primary summer child caregiver to a significant other at home: No Do you presently have visiting nurse or other home services: No Alcohol intake: current Alcohol intake frequency: holidays/special occasions only Alcohol type: wine and hard liquor Patient Tobacco Use Status: Former Tobacco user e-Cigarette/Vaping Use: Never Used Second Hand Smoke Exposure: No service: No Current occupational status: employed Current occupation: [email or web address] Cognitive needs: No Hearing needs: No Vision needs: No Questionnaire PHQ-9 Over the last 2 weeks, how often have you been bothered by any of the following problems? 1. Little interest or pleasure in doing things: not at all 2. Feeling down, depressed, or hopeless: not at all 3. Trouble falling or staying asleep, or sleeping too much: not at all 4. Feeling tired or having little energy: not at all 5. Poor appetite or overeating: not at all 6. Feeling bad about yourself - or that you are a failure or have let yourself or your family down: not at all 7. Trouble concentrating on things, such as reading the newspaper or watching television: not at all 8. Moving or speaking so slowly that other people could have noticed. Or the opposite - being so fidgety or restless that you have been moving around a lot more than usual: not at all 9. Thoughts that you would be better off or of hurting yourself in some way: not at all Total score: 0 Depression Screening Interpretation: Negative Depression Screening Done: Yes 58819 - PHQ-9 Billing: Yes Source: Developed by Drs. Olman Ordonez, Sharita Hidalgo, Phoenix Pierre and colleagues, with an educational ana from [employer] Thrive Questionnaire Date Thrive assessed: 09/19/23 I am a: Patient What is your living situation today?: I have a steady place to live Within the past 12 months, did the food you bought not last and you didn't have the money to get more?: Never true Within the past 12 months, did you worry whether your food would run out before you got money to buy more?: Never true Do you have trouble paying for medicines?: No Do you have trouble getting transportation to medical appointments?: No Do you have trouble paying your heating and electricity bill?: No Do you have trouble taking care of your child, family member or friend?: No Do you have trouble with day-to-day activities such as bathing, preparing meals, shopping, managing finances, etc.?: No Are you currently unemployed and looking for a job?: No Are you interested in more education?: No Please select the resources that you would like help with: None Currently or been in a relationship where the following occur: No concerns reported THRIVE Score: 0 AUDIT C Alcohol Use Questionnaire (AUDIT-C) 1. How often do you have a drink containing alcohol?: 2-4 times a month 2. How many drinks containing alcohol do you have on a typical day when you are drinking?: 1 or 2 3. How often do you have six or more drinks on one occasion?: Never Total Score: 2 PACO-7 AMB Questionnaire PACO-7 Date PACO - 7 assessed: 09/19/23 Feeling nervous, anxious, or on edge: 0 = Not at all Not being able to stop or control worryin = Not at all Worrying too much about different things: 0 = Not at all Trouble relaxin = Not at all Being so restless that it is hard to sit still: 0 = Not at all Becoming easily annoyed or irritable: 0 = Not at all Feeling afraid as if something awful might happen: 0 = Not at all Total PACO-7 score (0-4 normal; 5-9 mild; 10-14 moderate; 15-21 severe): 0 Source: Developed by Drs. Olman Ordonez, Sharita Hidalgo, Phoenix Pierre and colleagues, with an educational ana from [employer] Review of Systems Const Details: Const Denies chills, Denies fatigue, Denies fever(s), Denies headache(s) and Denies weakness ENT Denies dizziness and Denies headache(s) Card Denies chest pain, Denies lightheadedness, Denies dyspnea and Denies other (Palpitations) Resp Reports dry cough, Denies dyspnea, Denies wheezing and Denies other ( shortness of breath) GI Denies abdominal pain, Denies melena, Denies hematochezia, Denies change in bowel habits, Denies dyspepsia and Denies nausea Denies hematuria and Denies dysuria Musc Denies abnormal gait, Denies myalgias, Denies arthralgias, Denies numbness and Denies tingling Skin/Breast Denies rash, Denies unusual bruising and Denies wounds Neuro Denies abnormal gait, Denies dizziness, Denies headache(s), Denies memory loss, Denies numbness, Denies Sensory deficit (Neuro), Denies tingling and Denies weakness Psych Denies anxiety, Denies depression, Denies memory loss Endo Denies cold intolerance, Denies fatigue, Denies heat intolerance, Denies polydipsia and Denies polyuria Aller/Immun Denies wheezing Physical exam (Primary Care) Vital Signs: Last Vital Signs Temp 98.4 F 07/03/24 10:08 Pulse 69 07/03/24 10:08 Resp 16 07/03/24 10:08 BP 151/69 H 07/03/24 10:08 Pulse Ox 99 07/03/24 10:08 Oxygen Delivery Method Room Air 07/03/24 10:08 BMI result Body Mass Index 30.2 Tobacco/Smoking Status: Tobacco use Status Tobacco use date assessed 07/03/24 07/03/24 10:10 Patient Tobacco Use Status Former Tobacco user 07/03/24 10:05 e-Cigarette/Vaping Use Never Used 07/03/24 10:05 PHQ-9: PHQ-9 Score PHQ-9: Total score 0 07/03/24 10:05 Depression Screening Interpretation: Negative Thrive Assessment: Date of Thrive Assessment Date Thrive assessed 09/19/23 07/03/24 10:05 Currently or been in a relationship where the following occur: No concerns reported Const Other: General: no acute distress and well developed Nutritional Appearance: well nourished Orientation/consciousness: patient oriented x3 HENMT Head: Yes normocephalic and Yes atraumatic Eyes General: appearance normal, both eyes and all related structures Pupils: Equal, round and reactive pupils present EOM: EOMs intact bilaterally Resp Effort & Inspection: normal respiratory effort Auscultation: clear to auscultation bilaterally Cardio Rate: regular rate Rhythm: regular rhythm Heart sounds: S1 normal heart sound present, S2 normal heart sound present, no gallops, no murmurs and no rubs GI Palpation (GI): No Abdominal aortic bruit present, Soft to palpation, nontender, No hepatosplenomegaly present and No Rebound tenderness present Auscultation: normal bowel sounds General: Yes no CVA tenderness Back/Spine/Pelvis Back: no CVA tenderness Extrem General: Yes normal to inspection, No edema and No calf tenderness Skin General: warm and dry. Normal skin color. Normal skin turgor Neuro General: patient oriented x3, gait normal and no focal neuro deficit Cranial nerves: Yes Equal, round and reactive pupils present Cognition (Neuro): normal cognition Gait exam (Neuro): Normal gait present Sensory Exam: No Sensory deficit (Neuro) Psych Appearance: grossly normal Affect: normal affect Attitude: cooperative Thought process: Normal thought process present Coding Level of Care Code Est Pt Level 4 (72967) Diagnoses Essential hypertension I10 Viral upper respiratory illness J06.9 Laboratory tests ordered as part of a complete physical exam (CPE) Z00.00 Additional Codes PHQ-9 - 24246 - PHQ-9 Billing: Yes ([id number]) Assessment & Plan Assessment & Plan (1) Essential hypertension: Code(s): I10 - Essential (primary) hypertension Category: Medical Plan: Advised continuation of Lisinopril 10 mg daily. Reinforced adherence to low-salt diet. No immediate change in blood pressure management; evaluate adherence and response during routine physical in three months. (2) Viral upper respiratory illness: Code(s): J06.9 - Acute upper respiratory infection, unspecified Category: Medical Plan: Considered viral etiology due to absence of other systemic symptoms and negative COVID test. Prescribed Benzonatate 100 mg twice daily as needed for symptomatic cough relief. Advised increased fluid intake and rest. Nasal swab test ordered to rule out COVID-19, influenza, and RSV, results pending. (3) Laboratory tests ordered as part of a complete physical exam (CPE): Code(s): Z00.00 - Encounter for general adult medical examination without abnormal findings Category: Medical Plan: Fasting labs ordered as part of a complete physical exam. Advised to fast for at least 10 hours before getting labs drawn. May drink water Verbalized understanding and agreed with treatment plan. Plan During the visit, I discussed with the patient the likely viral nature of her dry cough and the expected self-limiting course. Management includes symptom control with Benzonatate and supportive measures such as adequate hydration and rest. I explained the nasal swab testing for respiratory pathogens and mentioned that I would notify her if the results are positive. The patient was reassured about proceeding with her colonoscopy, pending test results. We reviewed her hypertension management, specifically her medication adherence with Lisinopril and the significance of her low-salt diet. I advised her to continue these practices and to monitor any changes in symptoms. Follow-up is scheduled in three months for her routine physical including fasting labs and kidney function assessment via urine testing. Orders: Orders Lipid Panel Today Z00.00 - Encounter for general adult medical examination without abnormal findings Vitamin D 25-OH Total Today Z00.00 - Encounter for general adult medical examination without abnormal findings Complete Blood Count Auto Diff Today Z00.00 - Encounter for general adult medical examination without abnormal findings Microalbumin, Random (w Creat) Today Z00.00 - Encounter for general adult medical examination without abnormal findings Medications: New benzonatate 100 mg PO BID PRN 10 caps 0RF cough Patient Instructions: - Continue taking Lisinopril 10 mg daily as prescribed. - Adhere to a low-salt diet. - Take Benzonatate 100 mg as needed for cough symptom relief. - Ensure adequate fluid intake and rest. - Prepare for colonoscopy as instructed, avoiding solid foods. - Schedule follow-up visit in three months for a routine physical and lab work. - Await call regarding nasal swab test results. Patient was informed and verbally consented to the use of an ambient scribe for clinic note documentation during this visit.
[2024-07-03 10:08] VITALS: BP 151/69; PULSE 69; RESP 16; TEMP 36.9; O2SAT 99; BMI 30.2
[2024-07-03 10:19] VITALS: BP 140/80
== END 2024-07-03 10:30 | disposition home or self-care (01) ==
PROVIDERS: PCP Nurse Practitioner Family; Visit Provider Nurse Practitioner Family
DX: I10 Essential (primary) hypertension (principal); J06.9 Acute upper respiratory infection, unspecified; Z00.00 Encounter for general adult medical examination without abnormal findings

== ENCOUNTER 2024-07-03 09:59 | Outpatient (REF) | payer OTHER, SELFPAY ==
[2024-07-03 15:57] LABS: Influenza A PCR NEGATIVE (Negative); Influenza B PCR NEGATIVE (Negative); Resp Syncy Virus RNA Qual PCR NEGATIVE (Negative); SARS COV2 PCR INHOUSE NEGATIVE (Negative)
== END 2024-07-03 10:00 | disposition home or self-care (01) ==
LOC: HO.LAB 09:59
PROVIDERS: PCP Nurse Practitioner Family; Visit Provider Nurse Practitioner Family
DX: I10 Essential (primary) hypertension (principal); J06.9 Acute upper respiratory infection, unspecified; Z79.899 Other long term (current) drug therapy
CPT/HCPCS: 0241U; 96127

== ENCOUNTER 2024-07-04 07:57 | Day surgery (SDC) | payer OTHER, SELFPAY ==
[2024-07-02 13:33] VITALS: BMI 29.9
--- NOTE | 2024-07-03 11:49 | P.CONAN_ITS ---
Documented by User: Yaneth Murray NP 07/03/24 12:04 HPI - Anesthesia Eval Consult details Narrative: 78yo F for Colonoscopy PMFSH Active Problems Active Problems: All Active Problems Viral upper respiratory illness (Acute) Diverticulosis of colon (Acute) High cholesterol (Acute) Fatigue (Acute) Essential hypertension (Acute) Elevated fasting glucose (Acute) Osteopenia (Acute) Cough (Acute) Abnormal colonoscopy (Acute) Blood in stool (Acute) Posterior left knee pain (Acute) Vitamin D deficiency (Acute) Age-related osteoporosis without current pathological fracture (Acute) Colon cancer screening (Acute) Physical exam, annual (Acute) Breast cancer screening by mammogram (Acute) Osteoporosis screening (Acute) Laboratory tests ordered as part of a complete physical exam (CPE) (Acute) Contusion of foot, left (Acute) Past Medical History Medical History Osteopenia Diverticulosis Elevated cholesterol HTN (hypertension) Family History Family history of problems with anesthesia: No Surgical History Surgical History Hx of colonoscopy History of Problems with Anesthesia: No Social History Social History Household Members: Spouse Housing: [facility] Are you a primary healthcare architect to a significant other at home: No Do you presently have visiting nurse or other home services: No Alcohol intake: current Alcohol intake frequency: does not drink Alcohol type: wine and hard liquor Patient Tobacco Use Status: Former Tobacco user e-Cigarette/Vaping Use: Never Used Second Hand Smoke Exposure: No Have you been hit, kicked, punched, or otherwise hurt by someone within the past year? If so, by whom?: No Are you DNR?: No Advance Directives: No Advance Directives Information Provided: Yes Recently lost weight without trying: No Nutrition Risks: No Nutritional Risk service: No Current occupational status: employed Current occupation: [employer] Cognitive needs: No Hearing needs: No Vision needs: No Meds Allergies Allergy/AdvReac Type Severity Reaction Status Date / Time No Known Allergies Allergy Verified 07/03/24 10:06 Exam Height,Weight and Vital Signs: Height 5 ft 4 in Weight 78.925 kg Narrative Narrative: EKG 04/2024 Vent. Rate : 059 BPM Atrial Rate : 059 BPM P-R Int : 162 ms QRS Dur : 080 ms QT Int : 414 ms P-R-T Axes : 023 -02 026 degrees QTc Int : 409 ms Sinus bradycardia Otherwise normal ECG No previous ECGs available ECHO 2023 Conclusions: - Normal left ventricular size and systolic function. The visually estimated ejection fraction is between 55-60%. - E/E prime ratio is between 8 and 15 consistent with indeterminate filling pressures. - There is mild septal asymmetric hypertrophy. - Normal right ventricular cavity size and systolic function. Assessment and Plan Assessment Anesthesia Assessment: Chart Reviewed Final Anesthetic Review Family History of Problems with Anesthesia: No History of Problems with Anesthesia: No Documented by User: Merle Johnson MD 07/04/24 10:08 [facility] Past Medical History Medical History Osteopenia Diverticulosis Elevated cholesterol HTN (hypertension) Surgical History Surgical History Hx of colonoscopy Social History Social History Household Members: Sp[facility] Are you a primary healthcare architect to a significant other at home: No Do you presently have visiting nurse or other home services: No Alcohol intake: current Alcohol intake frequency: does not drink Alcohol type: wine and hard liquor Patient Tobacco Use Status: Former Tobacco user e-Cigarette/Vaping Use: Never Used Second Hand Smoke Exposure: No Have you been hit, kicked, punched, or otherwise hurt by someone within the past year? If so, by whom?: No Are you DNR?: No Advance Directives: No Advance Directives Information Provided: Yes Recently lost weight without trying: No Nutrition Risks: No Nutritional Risk service: No Current occupational status: employed Current occupation: [employer] Cognitive needs: No Hearing needs: No Vision needs: No Meds Allergies Allergy/AdvReac Type Severity Reaction Status Date / Time No Known Allergies Allergy Verified 07/03/24 10:06 Exam Airway Mallampati Class: II TM Dist: >3cm Neck ROM: Limited Heart: rrr Lungs: cta Assessment and Plan Assessment Anesthesia Assessment: Anesthesia Plan Discussed Final Anesthetic Review NPO: Yes ASA Class: II Final Preanesthetic Review: No Changes in Pt Med Stat, Meds/Allgs Chart Reviewed, Consent Obtained/Reviewed and Anes Risks/Benef Reviewed Patient Risk: Low Procedure Risk: Low Anesthetic Plan Anesthetic Plan: MAC: Disposition: Standard PACU
--- NOTE | ~2024-07-04 | CT_ITS ---
EXAMINATION: CT COLONOGRAPHY (CT ABDOMEN AND PELVIS WITHOUT CONTRAST) CLINICAL INFORMATION: aborted colonoscopy [id number] AUTH COMPARISON: CT abdomen 04/24/2024 TECHNIQUE: Bowel preparation: Large volume of fluid is seen in the colon. Stool tagging with Gastrografin and barium: Not utilized Colonic distention: CO2 mechanical insufflator used via enema tube with unsuccessful distention. Acquisition: Low dose imaging targeted to colonic was performed in the supine position. Procedure: The procedure was well tolerated. Review: The acquired images were reviewed in axial, coronal and sagittal planes. Additional 3-D fly through images were reviewed at an independent workstation. Total exam dose-length product 240 mGy-cm FINDINGS: Colonic findings: Rectal balloon is identified with distention of the distal sigmoid colon and rectum. The patient has moderate diverticular disease and spasm in the sigmoid colon. There is thickening of the mid sigmoid colon wall; not well evaluated. The colon proximal to this level could not be distended for evaluation and is also fluid-filled limiting assessment. This study would not assess for significant polyps or colorectal neoplasia. Non-colonic findings: Mild linear scarring is seen at the left lung base. The visualized liver, gallbladder, spleen, pancreas, adrenal glands and kidneys are normal in appearance on this low-dose noncontrast study. Calcification is seen in the abdominal aorta and iliac arteries. The bladder is partly distended and unremarkable. No acute osseous abnormality is seen. Degenerative disc disease is seen in the lower thoracic spine with fusion of the T9-T10 disc level and mild degenerative changes in the upper lumbar spine with moderate disc narrowing and osteophyte formation at L5-S1. CT/CT colonography IMPRESSION: Nondiagnostic CT colonography secondary to diverticular disease. There is thickening of the mid sigmoid colon wall which is not well evaluated, correlate with the colonoscopy findings and contrast enema findings. A barium enema was attempted following this examination which will be dictated separately. Electronically signed by: Tristen Paris MD 07/04/2024 02:07 PM [facility]
--- NOTE | ~2024-07-04 | FL_ITS ---
EXAMINATION: FL GASTROGRAFIN ENEMA CLINICAL INFORMATION: Incomplete colonoscopy. Nondiagnostic CT colonography due to sigmoid stricture COMPARISON: CT Colonography TECHNIQUE: A rectal tube was placed by the radiology staff. Gastrografin was administered via the rectal tube and multiple cine loops and spot images were obtained. Post evacuation films were then obtained. FINDINGS: After placement of a rectal tube, Gastrografin was administered through the rectal tube. Contrast flows proximally to the sigmoid colon, in which a moderate to high-grade stricture is seen in the mid sigmoid colon. No apple core lesion is present. A small amount contrast is able to pass through the stricture and opacify the left colon, the splenic flexure. Due to the back pressure from the sigmoid stricture, the majority of the contrast leaked out around the rectal tube. The rectal tube was then removed. Diverticulosis is present in the sigmoid colon. FLUOROSCOPY TIME: 2 minutes 47 seconds DOSE AREA PRODUCT: 5103 uGy-m2 (microgray-meter squared) FL/FL barium enema w air contrast IMPRESSION: 1. Moderate grade stricture in the mid sigmoid colon as seen on colonoscopy and CT colonography. No apple core lesion or mass is present. 2. Limited examination due to sigmoid stricture. The contrast is able to opacify only the left colon up to the splenic flexure. 3. Extensive diverticulosis of the sigmoid colon. This procedure was performed by Sonny Almanzar PA-C, and supervised by Dr. Winter Electronically signed by: Ran Winter MD 07/11/2024 03:54 PM [facility]
[2024-07-04 08:10] VITALS: BP 141/86; PULSE 81; RESP 20; TEMP 37; O2SAT 97; BMI 29.3
[2024-07-04] MEDS: Lactated Ringers 1,000 ML 100 ML IVCONT (08:37)
--- NOTE | 2024-07-04 09:00 | MHC.SHP ---
Pre-Procedural Eval Section A - 24 Hr Update-Section A only Date of Service: 07/04/24 Section B - Complete if H&P > 30 days Chief Complaint: Abnormal findings on diagnostic imaging of other p Relevant Family History (Specify if Yes): No Relevant Social History: None Present Medications: see Short Stay Collaborative assessment Medical History: Significant History (osteopenia, HTN) History of Previous Operations: Relevant previous surgery/procedure and date(s) (colonoscopy ) Allergies: Allergies Allergy/AdvReac Type Severity Reaction Status Date / Time No Known Allergies Allergy Verified 07/03/24 10:06 Review of Systems Sugical H&P ROS: Negative: Constitution, Cardiovascular, Respiratory, Neurological, Psychiatric, Hem-Onc, Allergic/Immunologic, Gastrointestinal, Genitourinary, Musculoskeletal, Integumentary, Endocrine and Eyes/Ears/Nose/Throat Exam Surgical H&P Exam: Normal: HEENT, Normal: Heart, Normal: Lungs, Normal: Extremities, Normal: Abdomen, Normal: Skin and Normal: Neurological Plan Diagnosis/Plan: Unchanged I have reviewed the history and physical and performed a pertinent physical examination on my patient. No changes have occurred unless specified. Time Spent With Patient Time: Total time managing care of this patient today ____ minutes.
--- NOTE | 2024-07-04 09:47 | HO.OPN-COLON ---
Colonoscopy Operative Note Operative Note Date of Service: 07/04/24 Narrative: Operative Information Procedure Description: Colonoscopy Indication: screening, prior incomplete colonoscopy Anesthesia: MAC COLONOSCOPY Instrument: Olympus variable stiffness pediatric scope 190L and upper GI scope Colonoscopy Monitoring: Vital signs and clinical assessment, continuous EKG monitoring, Pulse oximetry, Carbon Dioxide monitoring and blood pressure monitoring were done throughout the procedure. Procedure: The patient was placed in the left lateral decubitis position and pre-procedure medications were administered. After a digital rectal examination of the ano-rectum, the video colonoscope was inserted into the rectum and advanced through the colon to the sigmoid The colonoscope was slowly withdrawn in a retrograde panoramic fashion and the colon mucosa was carefully examined including a retroflexed view of the rectum. Findings and interventions are described below. Procedure Difficulty: v difficult Findings: The scope was advanced to the distal sigmoid but unable to pass thru a very tight area, scope was swapped for an upper scope and it was the same issue, There was some mucosal trauma to the rectum due to looping of the scope in the rectum,. An abdominal lift was performed but did not help Impression and Post Procedure Diagnosis: diverticulosis- severe with luminal narrowing Plan: attempt to get Ct colonography today if needs future colonoscopy would refer to a tertiary center Above findings were reviewed with the patient and relevant handouts were provided if indicated.
[2024-07-04 09:50] VITALS: BP 117/62; PULSE 70; RESP 16; TEMP 36.3; O2SAT 99
[2024-07-04 10:05] VITALS: BP 117/68; PULSE 66; RESP 16; O2SAT 96
[2024-07-04 10:20] VITALS: BP 126/68; PULSE 62; RESP 16; O2SAT 98
[2024-07-04 10:35] VITALS: BP 142/73; PULSE 64; RESP 16; TEMP 36.1; O2SAT 98
[2024-07-04] MEDS: Diatrizoate Meglumine, Sodium 120 ML SOLUTION 720 ML PR (12:35)
[2024-07-04 12:40] VITALS: RESP 16
== END 2024-07-04 13:04 | disposition home or self-care (01) ==
PROVIDERS: PCP Internal Medicine; Visit Provider Internal Medicine Gastroenterology
PROC: 0DJD8ZZ Inspection of Lower Intestinal Tract, Via Natural or Artificial Opening Endoscopic (ICD-10-PCS; CPT 45378; principal; 2024-07-04 10:50)
DX: Z12.11 Encounter for screening for malignant neoplasm of colon (principal); K57.30 Diverticulosis of large intestine without perforation or abscess without bleeding; K56.2 Volvulus; R93.3 Abnormal findings on diagnostic imaging of other parts of digestive tract; I10 Essential (primary) hypertension; E78.00 Pure hypercholesterolemia, unspecified; Z87.891 Personal history of nicotine dependence; Z79.899 Other long term (current) drug therapy
CPT/HCPCS: 45330; 74261; 74280; J2003; J2704

== ENCOUNTER → 2024-07-04 07:57 | Outpatient (BNV) | payer OTHER, SELFPAY | PROVIDERS: PCP Internal Medicine; Visit Provider Internal Medicine Gastroenterology | DX: Z12.11 Encounter for screening for malignant neoplasm of colon (principal); K57.30 Diverticulosis of large intestine without perforation or abscess without bleeding; K56.699 Other intestinal obstruction unspecified as to partial versus complete obstruction | CPT/HCPCS: 45330 ==

== ENCOUNTER → 2024-07-04 11:35 | Outpatient (BNV) | payer OTHER, SELFPAY | PROVIDERS: PCP Internal Medicine; Visit Provider Physician Assistant Surgical | DX: K56.699 Other intestinal obstruction unspecified as to partial versus complete obstruction (principal); K57.30 Diverticulosis of large intestine without perforation or abscess without bleeding | CPT/HCPCS: 74270 ==

== ENCOUNTER 2024-07-20 09:42 | Outpatient (REF) | payer OTHER, SELFPAY ==
[2024-07-20 10:47] LABS: MANUAL DIFF FLAG NO
[2024-07-20 11:34] LABS: Basophils Absolute Auto 0.1 X10*3/uL (0.0-0.2); Basophils Percent Auto 0.9 % (0-2); Eosinophils Absolute Auto 0.1 X10*3/uL (0.0-0.4); Eosinophils Percent Auto 1.5 % (0-4); Hematocrit 41.1 % (37.0-47.0); Hemoglobin 13.4 g/dl (12.0-16.0); Imm Gran Abs Auto 0.02 X10*3/uL (0.00-0.03); Imm Gran Pct Auto 0.3 % (0.0-0.4); Lymphocytes Absolute Auto 2.4 X10*3/uL (1.2-4.9); Lymphocytes Percent Auto 34.3 % (20-40); Mean Corpuscular HGB Conc 32.6 g/dl (31.0-35.0); Mean Corpuscular Hemoglobin 30.6 pg (27.0-33.0); Mean Corpuscular Volume 93.8 fL (80.0-98.0); Mean Platelet Volume 10.6 fL (9.4-12.3); Monocytes Absolute Auto 0.6 X10*3/uL (0.1-1.2); Neutrophils Absolute Auto 3.7 x10*3/uL (2.0-8.3); Platelet Count 357 X10*3/uL (160-400); Red Blood Count 4.38 X10*6/uL (4.20-5.50); Red Cell Distribution Width 13.2 % (11.0-16.0); White Blood Count 6.9 X10*3/uL (4.8-10.8)
[2024-07-20 12:11] LABS: Alanine Aminotransferase 27 U/L (0-31); Albumin Level 4.5 g/dL (3.5-5.0); Alkaline Phosphatase 52 U/L (39-117); Anion Gap 11 (12-20); Aspartate Amino Transferase 29 U/L (5-31); Bilirubin Total 0.8 mg/dL (0.0-1.0); Blood Urea Nitrogen 24 mg/dL (9-16); Calcium 9.8 mg/dL (8.4-10.2); Carbon Dioxide 28 mmol/L (22-29); Chloride 105 mmol/L (96-108); Estimated Glomerular Filt Rate 52; Glucose Random 87 mg/dL (60-115); Potassium 4.3 mmol/L (3.3-5.1); Sodium 140 mmol/L (135-145); Total Protein 7.6 g/dL (6.5-8.0)
== END 2024-07-20 09:43 | disposition home or self-care (01) ==
LOC: HO.LAB 09:42
PROVIDERS: PCP Nurse Practitioner Family; Visit Provider Internal Medicine Gastroenterology
DX: K56.699 Other intestinal obstruction unspecified as to partial versus complete obstruction (principal)
CPT/HCPCS: 36415; 80053; 85025

== ENCOUNTER 2024-07-20 09:42 | Outpatient (AMB) | payer OTHER, SELFPAY ==
--- NOTE | 2024-07-20 09:46 | MHC.OFFVIS ---
Vital Signs 07/20/24 09:48 Height 5 ft 4 in Weight 167 lb 8.821 oz BMI 28.8 BP 119/56 L Blood Pressure Location Lt brachial Position Sitting Pulse 90 Intake Visit Reasons: s/p colon Intake Note: Thuy presents in the office as a follow up colonoscopy. CC: Here for results - discuss narrowing of the colonoscopy. Volunteer Recruitment Coordinator Required: No Allergies No Known Allergies Allergy (Verified 07/20/24 09:47) HPI HPI s/p colon: Details: 78 yr old f here for f/u She had dificult colonoscopy unable to get past stricture in sigmoid depsite different techniques even ba enema and CT colonography couldnt be done she has no real symptoms from stricture, normal appetite no constipation, diarrhea etc EXAM: GENERAL: The patient is well developed and nontoxic. VITAL SIGNS:see workflow HEENT: Nonicteric sclerae, PERRLA, EOMI. Oropharynx clear. Moist mucous membranes. Conjunctivae appear well perfused. No thyroid mass. CHEST: Chest wall is nontender. HEART: Regular rate and rhythm without murmurs. LUNGS: Clear to auscultation bilaterally. ABDOMEN: Soft, positive bowel sounds, nontender, no organomegaly.no flank tenderness SKIN: No rash, no excessive bruising, petechiae, or purpura. NEUROLOGIC: Cranial nerves II-XII intact without motor/sensory deficit. Psych: normal affect A/P: 1/ sigmoid stricture from diverticulosis PLAN: 1/ CT A/P with IV and PO contrast, if nml can cont to monitor, if any concerns on imaging refer surgery if having worsening sx PFSH Medical History Osteopenia Diverticulosis Elevated cholesterol HTN (hypertension) Surgical History Hx of colonoscopy Social History Household Members: Spouse Both parents involved: No Caregiver staying overnight: No Housing: Condominium Are you a primary care program resident to a significant other at home: No Do you presently have visiting nurse or other home services: No 75 years or older and lives alone: No Alcohol intake: current Alcohol intake frequency: does not drink Alcohol type: wine and hard liquor Patient Tobacco Use Status: Former Tobacco user e-Cigarette/Vaping Use: Never Used Second Hand Smoke Exposure: No service: No Current occupational status: employed Current occupation: [employer] Cognitive needs: No Hearing needs: No Vision needs: No Physical Exam Vital Signs: Last Vital Signs Pulse 90 07/20/24 09:48 BP 119/56 L 07/20/24 09:48 BMI result Body Mass Index 28.8 Assessment & Plan Assessment & Plan (1) Colon stricture: Code(s): K56.699 - Other intestinal obstruction unspecified as to partial versus complete obstruction Category: Medical Plan: see above Orders: Orders CT abdomen pelvis w IV con Today K56.699 - Other intestinal obstruction unspecified as to partial versus complete obstruction Medications: Discontinued benzonatate Discontinued Reason: Patient no longer taking 100 mg PO BID PRN 10 caps 0RF cough Coding Level of Care Code Est Pt Level 3 (65878) Diagnoses Colon stricture K56.699
[2024-07-20 09:48] VITALS: BP 119/56; PULSE 90; BMI 28.8
== END 2024-07-20 10:08 | disposition home or self-care (01) ==
PROVIDERS: PCP Nurse Practitioner Family; Visit Provider Internal Medicine Gastroenterology
DX: K56.699 Other intestinal obstruction unspecified as to partial versus complete obstruction (principal)
CPT/HCPCS: 99213

== ENCOUNTER 2024-08-27 09:47 | Outpatient (AMB) | payer OTHER, SELFPAY ==
[2024-08-27 09:59] VITALS: BP 100/62; PULSE 78; BMI 29.0
--- NOTE | 2024-08-27 09:59 | A.OFFVIS_ITS ---
Vital Signs 08/27/24 09:59 Height 5 ft 4 in Weight 168 lb 13.985 oz BMI 29.0 BP 100/62 Blood Pressure Location Lt brachial Position Sitting Pulse 78 Pulse Source Monitor Intake Visit Reasons: 1 yr f/up Intake Note: 1 year f/up Mold Cleaner Required: No Accompanied by: Self / Same As Patient Allergies No Known Allergies Allergy (Verified 07/20/24 09:47) Medication List - Last Reconciled 08/27/24 by Miguel Angel Jones MD cholecalciferol (vitamin D3) 25 mcg PO DAILY 90 days lisinopril 10 mg PO DAILY 90 days HPI Comments Details: 78-year-old female who is referred to us for elevated blood pressure. In May she went to the emergency department because she was not feeling well and was noted to have significantly elevated blood pressures. This was treated and she was started on lisinopril 5 mg daily this was titrated to 10 mg daily and her blood pressure has been well controlled since then. It appears she had viral illness/congestion at that time and she was using a decongestant. It is very likely that decongestants led to her elevated blood pressure because her blood pressure was as high as 200s and usually it will require 2-3 medications to have good control of this level of hypertension when she is well controlled with a small dose of lisinopril. No chest pains or shortness of breath. Overall clinically stable. 08/27/2024: She is here for follow-up. Blood pressure is little low. She has no symptoms. She has a colonic stricture and will be getting colonoscopy again. She has no dizziness or lightheadedness due to low blood pressure. [facility] Medical History Osteopenia Diverticulosis Elevated cholesterol HTN (hypertension) Surgical History Hx of colonoscopy Social History Household Members: Spouse Both parents involved: No Caregiver staying overnight: No Housing: Condominium Are you a primary child caregiver to a significant other at home: No Do you presently have visiting nurse or other home services: No 75 years or older and lives alone: No Alcohol intake: current Alcohol intake frequency: does not drink Alcohol type: wine and hard liquor Patient Tobacco Use Status: Former Tobacco user e-Cigarette/Vaping Use: Never Used Second Hand Smoke Exposure: No service: No Current occupational status: employed Current occupation: [employer] Cognitive needs: No Hearing needs: No Vision needs: No Review of Systems Const Denies chills, Denies fatigue, Denies fever(s), Denies frequent falls, Denies weakness, Denies weight gain and Denies weight loss ENT Denies dizziness Card Denies chest pain, Denies leg edema, Denies lightheadedness, Denies palpitations, Denies dyspnea and Denies dyspnea on exertion Resp Denies cough, Denies dyspnea and Denies dyspnea on exertion GI Denies hematochezia Musc Denies abnormal gait, Denies muscle weakness, Denies numbness, Denies radiating pain into limb and Denies tingling Neuro Denies abnormal gait, Denies dizziness, Denies frequent falls, Denies numbness, Denies tingling and Denies weakness Endo Denies fatigue and Denies palpitations Physical Exam Vital Signs: Last Vital Signs Pulse 78 08/27/24 09:59 BP 100/62 08/27/24 09:59 BMI result Body Mass Index 29.0 GENERAL APPEARANCE: in no acute distress, pleasant. NECK: no carotid bruit, no jugular venous distention. SKIN: no suspicious lesions, warm and dry. HEART: no murmurs, regular rate and rhythm. LUNGS: clear to auscultation bilaterally. ABDOMEN: soft, nontender. EXTREMITIES: no edema. PERIPHERAL PULSES: equal. NEUROLOGIC: No gross deficits, AAO X 3 Office Procedures EKG Details: Sinus rhythm 78 beats per minute, normal EKG, QTC 403 milliseconds [id number], Complete Results Reviewed Results Reviewed: Transthoracic Echocardiogram Patient (Last, First, Middle): Thuy Lizama, Gender: Female Date of : 1945 Age: 78 Procedure Date: 09/21/2023 Procedure Type: Transthoracic Echocardiogram Location: OP Height: 160.02 cm Weight: 79.38 kg BSA: 1.83 m2 Heart Rate: bpm BP: 112 / 60 mmHg Distribution Transformer Assembler: TO Referring MD: Miguel Angel Jones MD Toll Gate Tender: Miguel Angel Jones MD Symptoms: I10 - Essential (primary) hypertension Study Quality: Fair/Contrast Conclusions: - Normal left ventricular size and systolic function. The visually estimated ejection fraction is between 55-60%. - E/E prime ratio is between 8 and 15 consistent with indeterminate filling pressures. - There is mild septal asymmetric hypertrophy. - Normal right ventricular cavity size and systolic function. Findings Procedure Information Contrast agent, definity, is being given per protocol without apparent complications. Left Ventricle Normal left ventricular size and systolic function. The visually estimated ejection fraction is between 55-60%. There is no evidence of regional wall motion abnormalities. Abnormal diastolic function is noted. Spectral Doppler is indicative of an impaired relaxation filling pattern. E/E prime ratio is between 8 and 15 consistent with indeterminate filling pressures. There is mild septal asymmetric hypertrophy. Right Ventricle Normal right ventricular cavity size and systolic function. Atria The left atrium is normal in size. The right atrium is normal in size. Aortic Valve Normal aortic valve structure and function. There is no aortic valve stenosis. There is no aortic valve regurgitation. Mitral Valve The mitral valve appears normal. There is no mitral valve regurgitation. There is no mitral valve stenosis. Pulmonic Valve The pulmonic valve is likely normal. Tricuspid Valve Normal tricuspid valve structure. There is no tricuspid valve regurgitation. Tricuspid regurgitation envelope is inadequate for calculation of right ventricular systolic pressure. Normal right atrial pressure. Great Vessels All visible segments of the aorta are normal in size. The visualized portions of the pulmonary artery and branches are normal. Venous The inferior vena cava is dilated and collapses greater than 50% with inspiration. Pericardium/Pleural There is no evidence of pericardial effusion. Prior Study Comparison No prior study available for comparison. Assessment & Plan Assessment & Plan (1) Essential hypertension: Code(s): I10 - Essential (primary) hypertension Category: Medical Plan Pleasant 78 year female who is here for follow-up. She was seen previously in August of 2023 when she presented with elevated blood pressures of 200s. She was using a decongestant at that time which she was advised not to use any further. Since then blood pressure improved. Echocardiography did not show any significant issues. On follow-up her blood pressure is little low. I have advised her to hydrate herself little better. If she gets any dizziness or lightheadedness she will report to us. She has a blood pressure cuff at home also. If she gets any dizziness or lightheadedness or him that this blood pressure is causing any issues then lisinopril can be decreased from 10 to 5 mg. She will follow up with us in 1 year. She will decide whether she wishes to see us PRN as there are no significant cardiovascular issues other than hypertension which is also well controlled at this point. Thank you for allowing me to participate in the care of your patient. Please feel free to contact me if you have any questions. Coding Level of Care Code Est Pt Level 3 (79072) Diagnoses Essential hypertension I10 CPT Codes EKG - CPT: 01061-[id number], Complete ([id number])
== END 2024-08-27 10:17 | disposition home or self-care (01) ==
PROVIDERS: PCP Nurse Practitioner Family; Visit Provider Internal Medicine Cardiovascular Disease
DX: I10 Essential (primary) hypertension (principal)
CPT/HCPCS: 93010; 99213

== ENCOUNTER → 2024-08-27 09:47 | Outpatient (BNVA) | payer OTHER, SELFPAY | PROVIDERS: PCP Nurse Practitioner Family; Visit Provider Internal Medicine Cardiovascular Disease | DX: I10 Essential (primary) hypertension (principal) | CPT/HCPCS: 93005 ==

== ENCOUNTER 2024-09-05 08:33 | Outpatient (REF) | payer OTHER, SELFPAY ==
--- OUTSIDE RECORDS SUMMARY | 2024-09-05 08:50 | XMS_ITS | Data Portability ---
Author Organization [facility], [address] Address [address] [place] [address] Assessment No assessment recorded. Plan of Treatment Reminders Order Date Submit Date Provider Last Modified By Organization Details Last Modified Time Details Appointments None recorded. Lab None recorded. Referral None recorded. Procedures None recorded. Surgeries None recorded. Imaging None recorded. Medication Orders Polytrim 10,000 unit-1 mg/mL eye drops 2022 023 [facility] #[id number], [address] [facility] [place], [address], 14:52:34 Patient TargetsNo targets recorded. Patient Instructions Encounter Date Encounter Id Patient Instructions Last Modified By Organization Details Last Modified Time 08/12/2022 [id number] corneal scratches: care instructions Not available 08/12/2022 14:52:15 You should follow-up with your PCP in 2-3 days, or at any time if your condition does not improve or worsens. Any acute change should prompt a visit to the nearest Emergency Department. Not available 08/12/2022 14:53:54 Reason for Referral None Reported. Problems No Known Problems Procedures Surgical History Date Name Laterality Status Provider Name and Address Organization Details Recorded Time hysterectomy completed Amada Wick [facility] 08/12/2022 14:34:28 Imaging Results None recorded. Procedure Notes None recorded. Medical Equipment None Reported. Allergies No known drug allergies Medications Name Sig Start Date Stop Date Status Note LastModified by Organization Details LastModified Time meloxicam 15 mg tablet TAKE 1 TABLET BY MOUTH EVERY DAY 08/12 completed Not Available Not Available Not Available polymyxin B sulfate 10,000 unit-trimet hoprim 1 mg/mL eye drops INSTILL 1 DROP INTO AFFECTED EYE(S) EVERY 8 HOURS active Not Available Not Available No t Available naproxen 500 mg tablet TAKE 1 TABLET BY MOUTH TWICE A DAY NEEDED FOR PAIN WITH FOOD 08/12 completed Not Available Not Available Not Available Vitals Date Recorded Body height Provider Name an d Address Organization Details Last Updated DateTime 08/12/2022 160.02 cm Amada Oswaldo PA - [facility] 0 08/12/2022 14:33:21 Date Recorded Body mass index (BMI) Body weight Provider Name and Address Organization Details Last Updated DateTime 08/12/2022 32.8 kg/m2 26072.59 g Amada [place] PA - [facility] 08/12/2022 14:33:24 Date Recorded Oxygen saturation Oxygen saturation in Arterial blood by Pulse oximetry Provider Name and Address Organization Details Last Updated DateTime 08/12/2022 97 % 97 % Amada [place] PA - [facility] 08/12/2022 14:33:34 Date Recorded Pain severity - 0-10 verbal numeric rating [Score] - Reported Provider Name and Address Organization Details Last Updated DateTime 08/12/2022 2 Amada [place] PA - [facility] 0 08/12/2022 14:33:37 Date Recorded Heart rate Provider Name an d Address Organization Details Last Updated DateTime 08/12/2022 74 /min Amada Oswaldo PA - [facility] 0 08/12/2022 14:33:40 Date Recorded Respiratory rate Provider Name a nd Address Organization Details Last Updated DateTime 08/12/2022 18 /min Amada [place] PA - [facility] 0 08/12/2022 14:33:41 Date Recorded Body temperature Provider Name a nd Address Organization Details Last Updated DateTime 08/12/2022 97.8 [degF] Amada Oswaldo PA - [facility] 08/12/2022 14:33:46 Date Recorded Systolic blood pressure Diastolic blood pressure Provider Name and Address Organization Details Last Updated DateTime 08/12/2022 137 mm[Hg] 78 mm[Hg] Amada Oswaldo PA - [facility] 08/12/2022 14:33:30 Social History Question Answer Notes LastModified by Organizat ion Details LastModified Time Tobacco Smoking Status Never Smoker Amadadony simmons PA - [facility] 08/12/2022 14:34:15 What Is Your Level Of Alcohol Consumption? None Information not available 08/12/2022 Have You Had Direct Contact, Or Contact During Intimacy, With Monkeypox Rash, Scabs, Or Body Fluids From A Person With Monkeypox? No Information not available 08/12/2022 Do You Use Any Illicit Or Recreational Drugs? No Information not available 08/12/2022 Have You Recently Traveled Abroad? No Information not available 08/12/2022 Do You Or Have You Ever Used Any Other Forms Of Tobacco Or Nicotine? No Information not available 08/12/2022 Sex: Unknown Functional Status None recorded. Mental Status None recorded. Family History Relationship Description Onset Age of this Age Resolved Age Notes LastModified by Organization Details LastModified Time Father No current problems or disability Not available 08/12 14:34:09 Mother No current problems or disability Not available 08/12 14:34:09 Medical History No medical history recorded. Gynecological HistoryNo gynecological history recorded. Obstetrics History GPAL:G 0 P 0 0 0 0 Immunizations Vaccine Type Date Status Note Provider Nam e and Address Organization Details Recorded Time COVID-19, mRNA, LNP-S, PF, 100 mcg/0.5mL dose or 50 mcg/0.25mL dose 12/05/2020 completed Amadadiamond simmons PA - [facility] 08/12/2022 14:33:55 COVID-19, mRNA, LNP-S, PF, 100 mcg/0.5mL dose or 50 mcg/0.25mL dose 11/07/2020 completed Amada [place] null PA - [facility] 08/12/2022 14:33:55 COVID-19, mRNA, LNP-S, PF, 100 mcg/0.5mL dose or 50 mcg/0.25mL dose 08/24/2021 completed Amada [place] null PA - [facility] 08/12/2022 14:33:55 Past Encounters Encounter ID Performer Location Encounter Start Date Encounter Closed Date Diagnosis/Indication Diagnosis SNOMED-CT Code Diagnosis ICD10 Code Diagnosis Note [id number] [facility] [address] [facility] [place] [address] 09/08/2017 10:52:34 09/08/2017 11:43:22 [id number] [facility] [address] [facility] [place] [address] 04/07/2018 10:19:26 04/07/2018 11:19:50 [id number] [facility] [address] [place] [address] [place] [address] 08/03/2019 11:14:57 08/03/2019 12:20:39 [id number] Betsy[facility] [address] [place] [address] [place] [address] 01/29/2022 10:37:54 01/29/2022 12:06:19 [id number] Lesley5_Charlie [facility] [address] [place] [address] [place] [address] 11/20/2018 19:29:02 11/21/2018 08:17:51 [id number] Lesley5_[facility] [address] [place] [address] [place] [address] 06/05/2015 11:25:36 06/05/2015 11:57:48 [id number] [facility] [address] [place] [address] 11/16/2018 12:51:53 11/16/2018 13:13:41 [id number] Lesley5_[facility] [address] [place] [address] [place] [address] 12/05/2017 15:36:31 12/05/2017 16:32:06 [id number] Francisco Javier Canales MD Lesley[facility] [address] [facility] [place] [address] 08/12/2022 14:14:43 08/12/2022 14:55:33 Abrasion of left cornea [id number] S05.02XA Health Concerns Section Related Observation LastModified by Organization Detai ls LastModified Time None Recorded Concern Status LastModified by Organization Details LastModified Time None Recorded Advance Directives Directive None Recorded Payers Encounter Date Sequence Insurance Name Policy Number Policy Jennings Covered Member ID Jennings Member ID Guarantor Name 08/03/2019 1 [employer] (PPO) [id number] Brian Lizama [id number] Thuy Lizama 01/29/2022 1 [employer] [place]) [id number] Brian Lizama [id number] Thuy Lizama 08/12/2022 1 [employer] (PPO) [id number] Brian Lizama [id number] Thuy Lizama Notes Date Note Type Note Provider Name and Address Organization Details Recorded Time 08/12/2022 text/html Eye problemsRepo rted bypatient.Location:[facility] Symptoms:no sensitivity to light; no discharge of pus from the eyes; no pain in the eyes; no blurred vision Severity:mild Francisco Javier Canales MD [address] [place], [place] [address], [address], PA - [facility] 08/12/2022 14:54:09 OBGyn Episode No OBEpisode recorded.
--- OUTSIDE RECORDS SUMMARY | 2024-09-05 08:50 | XMS_ITS | Encounter Summary ---
Author Organization [facility] Address [address] [facility] [place] [address] Care Team Providers Care Professor Of Forest Planning Name Role Phone Stephen Flores MD Primary Care Provider Unavail able Nisha Navarro DO Primary Care Pro vider Unavailable Aryan Wright MD Primary Care Provider Chon thomas Encounter Details Date Type Department Care Team Description 05/22/2012 Release of Information Medical Records [address] [place] [id number] Abstract, Provider Social History Tobacco Use Types Packs/Day Years Used Date Smoking Tobacco: Former Cigarettes Q uit: 08/08/1988 Smokeless Tobacco: Former Comments:quit 1988 Alcohol Use Standard Drinks/Week Comments Yes 0 (1 standard drink = 0.6 oz pur e alcohol) soc Sex Assigned at Date Recorded Not on file documented as of this encounter Plan of Treatment Not on file documented as of this encounter Visit Diagnoses Not on filedocumented in this encounter Care Teams Professor Of Forest Planning Relationship Specialty Start Date End Date Stephen Flores MD PCP - General 06/10/1997 04/10/20 Nisha Navarro DO PCP - General Internal Medicine 04/11/20 08/11/21 Aryan Wright MD PCP - General Internal Medicine 08/12/21 documented as of this encounter
--- OUTSIDE RECORDS SUMMARY | 2024-09-05 08:50 | XMS_ITS | Encounter Summary ---
Author Organization [facility] Address [address] [facility] [place] [address] Care Team Providers Care Feed Mixer Name Role Phone Stephen Flores MD Primary Care Provider Unavail able Nisha Navarro DO Primary Care Pro vider Unavailable Aryan Wright MD Primary Care Provider Chon thomas Encounter Details Date Type Department Care Team Description 05/18/2012 Sterile Processing Manager Report Medical Records [address] [place] [id number] Grzegorz Rosado, FILOMENA Social History Tobacco Use Types Packs/Day Years [...] on filedocumented in this encounter Care Teams Feed Mixer Relationship Specialty Start Date End Date Stephen Flores MD PCP - General 06/10/1997 04/10/20 Nisha Navarro DO PCP - General Internal Medicine 04/11/20 08/11/21 Aryan Wright MD PCP - General Internal Medicine 08/12/21 documented as of this encounter
[2024-09-05 10:43] LABS: MANUAL DIFF FLAG NO
[2024-09-05 10:46] LABS: Basophils Percent Auto 0.5 % (0-2); Eosinophils Absolute Auto 0.1 X10*3/uL (0.0-0.4); Eosinophils Percent Auto 2.3 % (0-4); Hematocrit 38.6 % (37.0-47.0); Hemoglobin 12.6 g/dl (12.0-16.0); Imm Gran Abs Auto 0.01 X10*3/uL (0.00-0.03); Imm Gran Pct Auto 0.2 % (0.0-0.4); Lymphocytes Absolute Auto 2.3 X10*3/uL (1.2-4.9); Mean Corpuscular HGB Conc 32.6 g/dl (31.0-35.0); Mean Corpuscular Hemoglobin 30.5 pg (27.0-33.0); Mean Corpuscular Volume 93.5 fL (80.0-98.0); Mean Platelet Volume 10.6 fL (9.4-12.3); Monocytes Absolute Auto 0.5 X10*3/uL (0.1-1.2); Monocytes Percent Auto 7.9 % (2-11); Neutrophils Absolute Auto 3.2 x10*3/uL (2.0-8.3); Neutrophils Percent Auto 52.1 % (45-73); Platelet Count 317 X10*3/uL (160-400); Red Blood Count 4.13 X10*6/uL (4.20-5.50); Red Cell Distribution Width 13.3 % (11.0-16.0); White Blood Count 6.1 X10*3/uL (4.8-10.8)
[2024-09-05 11:07] LABS: Cholesterol 207 mg/dL (<200); HDL Cholesterol 68 mg/dL (>40); LDL Cholesterol Calculated 121 mg/dL (<100); Triglycerides 92 mg/dL (<150)
[2024-09-05 11:20] LABS: Blood Urea Nitrogen 21 mg/dL (9-16); Estimated Glomerular Filt Rate > 60
[2024-09-05 11:21] LABS: Creatinine Urine 115.02 mg/dL; Microalbum/Creatinine Ratio Ur 10.4 ug/mg cr (<30)
[2024-09-05 11:22] LABS: Vitamin D 25-OH Total 78.2 ng/mL (>30)
== END 2024-09-05 08:34 | disposition home or self-care (01) ==
LOC: HO.HMGCLDS 08:33
PROVIDERS: Internal Medicine Gastroenterology; PCP Nurse Practitioner Family; Visit Provider Nurse Practitioner Family
DX: Z00.00 Encounter for general adult medical examination without abnormal findings (principal); K56.699 Other intestinal obstruction unspecified as to partial versus complete obstruction; R93.3 Abnormal findings on diagnostic imaging of other parts of digestive tract; K92.1 Melena; K57.30 Diverticulosis of large intestine without perforation or abscess without bleeding
CPT/HCPCS: 36415; 80061; 82043; 82306; 82565; 82570; 84520; 85025

== ENCOUNTER 2024-09-06 09:16 | Outpatient (REF) | payer OTHER, SELFPAY ==
--- NOTE | ~2024-09-06 | CT_ITS ---
EXAMINATION: CT ABDOMEN PELVIS WITH IV CONTRAST HISTORY: K56.699 - Other intestinal obstruction unspecified as to partial versus complete COMPARISON: Comparison is made with the prior examination dated 07/04/2024. TECHNIQUE: CT scan of the abdomen and pelvis was performed following administration of 85 mL Omnipaque 350 using standard departmental protocol. Coronal and sagittal reformatted images were generated and reviewed. Oral contrast material was not administered at the request of the referring physician. This CT exam was performed with one or more of the following dose reduction techniques: automated exposure control, adjustment of the mA and/or kV according to patient size, use of iterative reconstruction technique. DLP: 391 mGy-cm FINDINGS: LOWER CHEST: The visualized lung bases are clear. There is no pleural effusion. CARDIOVASCULATURE: The heart is normal in size. There is no pericardial effusion. LIVER: The liver is normal in size and contour. No liver mass is identified. The hepatic and portal veins are patent. GALLBLADDER / BILE DUCTS: The gallbladder is unremarkable. There is no intra or extrahepatic biliary ductal dilatation. SPLEEN: The spleen is normal in size. No focal splenic lesion is identified. PANCREAS: The pancreas is unremarkable in appearance. ADRENAL GLANDS: Within normal limits. KIDNEYS/RETROPERITONEUM: No renal calculi are identified. There is no hydronephrosis. No renal masses are identified. LYMPH NODES: No abdominal or pelvic lymphadenopathy. VASCULATURE: The abdominal aorta demonstrates atherosclerotic calcification, but is normal in caliber. MESENTERY/PERITONEUM: No free fluid. No masses. There is no free intraperitoneal gas. STOMACH: The stomach is collapsed, limiting evaluation. SMALL BOWEL: The small bowel is normal in caliber. COLON: There is diverticulosis of the descending and sigmoid colon, without evidence of diverticulitis. The sigmoid colon is collapsed, limiting evaluation. The previously described wall thickening is not as well visualized. There is a large amount of stool in the ascending, transverse, and descending colon. APPENDIX: Normal. URINARY BLADDER/PELVIC ORGANS: The urinary bladder is collapsed, limiting evaluation. The patient is status post hysterectomy. BONES / SOFT TISSUES: No suspicious bony or soft tissue abnormalities. CT/CT abdomen pelvis w IV con IMPRESSION: Diverticulosis of the descending and sigmoid colon, without evidence of diverticulitis. The sigmoid colon is collapsed in the previously seen area of wall thickening is not well visualized. Electronically signed by: Olman Khan MD 09/06/2024 10:21 AM JESU
[2024-09-06] MEDS: iohexoL 350 MG/ML 100 ML INFUS..BTL IV (09:57)
--- OUTSIDE RECORDS SUMMARY | 2024-09-06 12:27 | XMS_ITS | Data Portability ---
Author Organization [facility], [address] Address [address] [place] [address] Assessment No assessment recorded. Plan of Treatment Reminders Order Date Submit Date Provider Last Modified By Organization Details Last Modified Time Details Appointments None recorded. Lab None recorded. Referral None recorded. Procedures None recorded. Surgeries None recorded. Imaging None recorded. Medication Orders Polytrim 10,000 unit-1 mg/mL eye drops 2022 023 [facility][id number], [address] [facility] [place], [address], 14:52:34 Patient TargetsNo targets recorded. Patient Instructions Encounter Date Encounter Id Patient Instructions Last Modified By Organization Details Last Modified Time 08/12/2022 [id number] corneal scratches: care instructions Not available 08/12/2022 [...] Details Last Updated DateTime 08/12/2022 32.8 kg/m2 57645.59 g Amada Hyde PA - [facility] 08/12/2022 14:33:24 Date Recorded Oxygen saturation Oxygen saturation in Arterial blood by Pulse oximetry Provider Name and Address Organization Details Last Updated DateTime 08/12/2022 97 % 97 % Amada Hyde PA - [facility] 08/12/2022 14:33:34 Date Recorded Pain severity - 0-10 verbal numeric rating [Score] - Reported Provider Name and Address Organization Details Last Updated DateTime 08/12/2022 2 Amada Hyde PA - [facility] 0 08/12/2022 14:33:37 Date Recorded Heart rate Provider Name an d Address Organization Details Last Updated DateTime 08/12/2022 74 /min Amada Oswaldo PA - [facility] 0 08/12/2022 14:33:40 Date Recorded Respiratory rate Provider Name a nd Address Organization Details Last Updated DateTime 08/12/2022 18 /min Amada Hyde PA - [facility] 0 08/12/2022 14:33:41 [...] or 50 mcg/0.25mL dose 11/07/2020 completed Amada Hyde null PA - [facility] 08/12/2022 14:33:55 COVID-19, mRNA, LNP-S, PF, 100 mcg/0.5mL dose or 50 mcg/0.25mL dose 08/24/2021 completed Amada Hyde null PA - [facility] 08/12/2022 14:33:55 Past Encounters Encounter ID Performer Location Encounter Start Date Encounter Closed Date Diagnosis/Indication Diagnosis SNOMED-CT Code Diagnosis ICD10 Code Diagnosis Note [id number] [facility] [address] [facility] [place] [address] 09/08/2017 10:52:34 09/08/2017 11:43:22 [id number] [facility] [address] [facility] [place] [address] 04/07/2018 10:19:26 04/07/2018 11:19:50 [id number] [facility] [address] [place] [address] [place] [address] 08/03/2019 11:14:57 08/03/2019 12:20:39 [id number] [facility] [address] [place] [address] [place] [address] 01/29/2022 10:37:54 01/29/2022 12:06:19 [id number] [facility]ley[facility] [address] [place] [address] [place] [address] 11/20/2018 19:29:02 11/21/2018 08:17:51 [id number] [facility] [address] [place] [address] [place] [address] 06/05/2015 11:25:36 06/05/2015 11:57:48 [id number] [facility] [address] [facility] [place] [address] 11/16/2018 12:51:53 11/16/2018 13:13:41 [id number] [facility] [address] [place] [address] [place] [address] 12/05/2017 15:36:31 12/05/2017 16:32:06 [id number] Francisco Javier Canales MD [facility] [address] [facility] [place] [address] 08/12/2022 14:14:43 08/12/2022 14:55:33 Abrasion of left cornea [id number] S05.02XA Health Concerns Section Related Observation LastModified by Organization Detai ls LastModified Time None Recorded Concern Status LastModified by Organization Details LastModified Time None Recorded Advance Directives Directive None Recorded Payers Encounter Date Sequence Insurance Name Policy Number Policy Jennings Covered Member ID Jennings Member ID Guarantor Name 08/03/2019 1 [employer] (PPO) [id number] Brian Lizama [id number] Thuy Lizama 01/29/2022 1 [employer] [id number] Brian Lizama [id number] Thuy Lizama 08/12/2022 1 [employer]) [id number] Brian Lizama [id number] Thuy Lizama Notes Date Note Type Note Provider Name and Address Organization Details Recorded Time 08/12/2022 text/html Eye problemsRepo rted bypatient.Location:[facility] Eye Symptoms:no sensitivity to light; no discharge of pus from the eyes; no pain in the eyes; no blurred vision Severity:mild Francisco Javier Canales MD [address] [place], [place] [address], [address], PA - [facility] 08/12/2022 14:54:09 OBGyn Episode No OBEpisode recorded.
== END 2024-09-06 09:17 | disposition home or self-care (01) ==
LOC: HO.CT 09:16
PROVIDERS: PCP Nurse Practitioner Family; Visit Provider Internal Medicine Gastroenterology
DX: K56.699 Other intestinal obstruction unspecified as to partial versus complete obstruction (principal)
CPT/HCPCS: 74177; Q9967

== ENCOUNTER → 2024-09-06 09:19 | Outpatient (BNV) | payer OTHER, SELFPAY | PROVIDERS: PCP Nurse Practitioner Family; Visit Provider Radiology Diagnostic Radiology | DX: K57.30 Diverticulosis of large intestine without perforation or abscess without bleeding (principal) | CPT/HCPCS: 74177 ==

== ENCOUNTER 2024-10-04 09:58 | Outpatient (AMB) | payer OTHER, SELFPAY ==
--- NOTE | 2024-10-04 10:00 | A.OFFPC_ITS ---
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 Is last menstrual period known: No Post menopausal: No Patient : No Allergies No Known Allergies Allergy (Verified 10/04/24 10:25) Medication List - Last Reconciled 10/04/24 by Vladimir Owen CNP cholecalciferol (vitamin D3) 25 mcg PO DAILY 90 days lisinopril 10 mg PO DAILY 90 days Tobacco use date assessed: 10/04/24 Fall risk assessment: No Falls in past year Last assessed Fall Risk: 10/04/24 Dental Screening Dental Screen Date: 10/04/24 Did you have a dental visit in the last 12 months?: Yes Did you have a dental problem in the last 6 months where you did not have access to dental care?: No Was dental information given to patient?: Patient has dentist HPI HPI Comments History of Present Illness Details 29-year-old female presents for an exten ded physical exam.. She admits to taking her medications as prescribed without adverse reactions. She offers no complaints and denies acute symptoms at this time. Acute issue(s) - Intermittent achiness to her left knee with occasional redness and swelling for the past 3-6 months. He denies fall, injury, or trauma. No tingling, numbness, or loss of sensation. She takes ibuprofen as needed with relief. No acute symptoms at this time. Past Medical History - Hypertension - Vitamin D deficiency - Hyperlipidemia - Osteopenia Social History - Former smoker. Does not vape. Drink 2 glasses of wine 2-3 times weekly. Denies recreational drug use - Has been making healthy dietary choice s, however she consumes significant amount of cheese and whole milk. Exercises routinely. Generally sleep well Health maintenance - Last eye exam was 5 years ago. Referr ed to Ophthalmology for routine eye exam - Last dental visit was within the past 12 months - Last tetanus vaccine was more in 2011; received she will get vaccinated at her next visit - Shingle vaccines - She notes that she had one PNA vaccine but never received the shingles vaccines. Instructed on the importance of the shingles and pneumonia vaccines and encouraged to get vaccinated for both. She may get the vaccines from the local pharmacy - Has not been vaccinated for the flu ; she will get vaccinated at her next visit - No longer performs pap smear - Last mammogram was in 11/14/2023: Negat evaristo for malignancy - Last colonoscopy was in in 07/04/2024 - Last dexa scan was on 12/08/2022: [facility] Medical History Osteopenia Diverticulosis Elevated cholesterol HTN (hypertension) Surgical History Hx of colonoscopy Social History Household Members: Spouse Both parents involved: No Caregiver staying overnight: No [facility] Are you a primary daycare teacher to a significant other at home: No Do you presently have visiting nurse or other home services: No 75 years or older and lives alone: No Alcohol intake: current Alcohol intake frequency: does not drink Alcohol type: wine and hard liquor Patient Tobacco Use Status: Former Tobacco user e-Cigarette/Vaping Use: Never Used Second Hand Smoke Exposure: No service: No Current occupational status: employed Current occupation: [employer] Cognitive needs: No Hearing needs: No Vision needs: No Questionnaire PHQ-9 Over the last 2 weeks, how often have you been bothered by any of the following problems? 1. Little interest or pleasure in doing things: not at all 2. Feeling down, depressed, or hopeless: not at all 3. Trouble falling or staying asleep, or sleeping too much: not at all 4. Feeling tired or having little energy: not at all 5. Poor appetite or overeating: not at all 6. Feeling bad about yourself - or that you are a failure or have let yourself or your family down: not at all 7. Trouble concentrating on things, such as reading the newspaper or watching television: not at all 8. Moving or speaking so slowly that other people could have noticed. Or the opposite - being so fidgety or restless that you have been moving around a lot more than usual: not at all 9. Thoughts that you would be better off or of hurting yourself in some way: not at all Total score: 0 Depression Screening Interpretation: Negative Depression Screening Done: Yes [id number] - PHQ-9 Billing: Yes Source: Developed by Drs. Olman Ordonez, Sharita Hidalgo, Phoenix Pierre and colleagues, with an educational ana from [employer]. Thrive Questionnaire Date Thrive assessed: 10/04/24 I am a: Patient What is your living situation today?: I have a steady place to live Within the past 12 months, did the food you bought not last and you didn't have the money to get more?: Never true Within the past 12 months, did you worry whether your food would run out before you got money to buy more?: Never true Do you have trouble paying for medicines?: No Do you have trouble getting transportation to medical appointments?: No Do you have trouble paying your heating and electricity bill?: No Do you have trouble taking care of your child, family member or friend?: No Do you have trouble with day-to-day activities such as bathing, preparing meals, shopping, managing finances, etc.?: No Are you currently unemployed and looking for a job?: No Are you interested in more education?: No Please select the resources that you would like help with: None Currently or been in a relationship where the following occur: No concerns reported THRIVE Score: 0 AUDIT C Alcohol Use Questionnaire (AUDIT-C) 1. How often do you have a drink containing alcohol?: 2-3 times a week 2. How many drinks containing alcohol do you have on a typical day when you are drinking?: 3 or 4 3. How often do you have six or more drinks on one occasion?: Less than monthly Total Score: 5 Score Reviewed/Action Taken: Yes PACO-7 AMB Questionnaire PACO-7 Date PACO - 7 assessed: 10/04/24 Feeling nervous, anxious, or on edge: 0 = Not at all Not being able to stop or control worryin = Not at all Worrying too much about different things: 0 = Not at all Trouble relaxin = Not at all Being so restless that it is hard to sit still: 0 = Not at all Becoming easily annoyed or irritable: 0 = Not at all Feeling afraid as if something awful might happen: 0 = Not at all Total PACO-7 score (0-4 normal; 5-9 mild; 10-14 moderate; 15-21 severe): 0 Source: Developed by Drs. Olman Ordonez, Sharita Hidalgo, Phoenix Pierre and colleagues, with an educational ana from [employer]. PACO-7 Assessment Billing PACO-7 Assessment Tool: PACO-7 Assessment 23663 Review of Systems Const Details: Denies chills, Denies fatigue, Denies fever(s), Denies headache(s) and Denies weakness HEENT Denies change in vision, Denies dizziness, Denies headache(s), Denies hearing loss, Denies nasal congestion, Denies sinus pain, Denies sinus pressure and Denies sore throat Card Denies chest pain, Denies lightheadedness, Denies dyspnea and Denies other (palpitations) Resp Denies cough, Denies dyspnea and Denies wheezing GI Denies abdominal pain, Denies melena, Denies hematochezia, Denies change in bowel habits, Denies dyspepsia and Denies nausea Denies hematuria and Denies dysuria Musc Reports left knee pain, Denies abnormal gait, Denies myalgias, Denies numbness and Denies tingling Skin/Breast Denies rash, Denies unusual bruising and Denies wounds Neuro Denies abnormal gait, Denies dizziness, Denies headache(s), Denies memory loss, Denies numbness, Denies Sensory deficit (Neuro), Denies tingling and Denies weakness Psych Denies anxiety, Denies depression and Denies memory loss Endo Denies cold intolerance, Denies fatigue, Denies heat intolerance, Denies polydipsia and Denies polyuria Mika/Lymph Denies easy bleeding and Denies easy bruising Aller/Immun Denies wheezing Physical exam (Primary Care) Vital Signs: Last Vital Signs Temp 97.6 F 10/04/24 10:03 Pulse 63 10/04/24 10:03 Resp 16 10/04/24 10:03 BP 100/50 L 10/04/24 10:28 Pulse Ox 98 10/04/24 10:03 Oxygen Delivery Method Room Air 10/04/24 10:03 BMI result Body Mass Index 29.5 Tobacco/Smoking Status: Tobacco use Status Tobacco use date assessed 10/04/24 10/04/24 10:06 Patient Tobacco Use Status Former Tobacco user 10/04/24 10:06 e-Cigarette/Vaping Use Never Used 10/04/24 10:06 PHQ-9: PHQ-9 Score PHQ-9: Total score 0 10/04/24 10:22 Depression Screening Interpretation: Negative Thrive Assessment: Date of Thrive Assessment Date Thrive assessed 10/04/24 10/04/24 10:06 Currently or been in a relationship where the following occur: No concerns reported Const Other: General: no acute distress, well developed, alert and awake Nutritional Appearance: well nourished Orientation/consciousness: patient oriented x3 HENMT Head: Yes normocephalic and Yes atraumatic Ears: hearing grossly normal bilaterally and TM's normal bilaterally General nose exam: Normal external nose present and Normal nares present Mouth: Normal oral and palatal mucosa present and moist mucous membranes Teeth and gingiva: dentition normal Throat: Yes oropharynx normal Eyes Pupils: Equal, round and reactive pupils present and Pupil accommodation reflex normal EOM: EOMs intact bilaterally Neck Neck: Yes normal visual inspection, Yes no lymphadenopathy and Yes trachea midline Thyroid: Thyroid normal Carotids: no bruits Lymphatic: no lymphadenopathy noted Chest Chest palpation & inspection: normal inspection of the chest Resp Effort & Inspection: normal respiratory effort Auscultation: clear to auscultation bilaterally Cardio Rate: regular rate Rhythm: regular rhythm Heart sounds: S1 normal heart sound present, S2 normal heart sound present, no gallops, no murmurs and no rubs Bruits: no abdominal aortic bruits and no carotid bruits GI Palpation (GI): No Abdominal aortic bruit present, Soft to palpation, nontender, No hepatosplenomegaly present and No Rebound tenderness present Auscultation: normal bowel sounds General: Yes no CVA tenderness Back/Spine/Pelvis Back: no CVA tenderness Cervical Spine: cervical ROM normal and No Cervical spine tenderness Thoracic/Lumbar Spine: thoraco-lumbar ROM normal, No pain with thoraco-lumbar ROM, No thoracic spinal tenderness and No lumbar spinal tenderness Skin General: warm and dry. Normal skin color. Normal skin turgor Lesions: no lesions Rashes: no rashes Trauma: no lacerations or abrasions Wounds: no wounds Nails: normal Neuro General: patient oriented x3, gait normal and CN's II-XI intact bilaterally Cranial nerves: Yes Equal, round and reactive pupils present Cognition (Neuro): normal cognition Gait exam (Neuro): Normal gait present Motor exam (neuro): 5/5 motor strength present throughout Sensory Exam: No Sensory deficit (Neuro) Deep tendon reflexes (DTR's): Right patellar reflex intensity grade: 2+ and Left patellar reflex intensity grade: 2+ Extrem General: Yes normal to inspection, No edema and No calf tenderness. Normal left knee exam. No erythema, edema, or tenderness Psych Appearance: grossly normal Affect: normal affect Attitude: cooperative Thought process: Normal thought process present Coding Level of Care Code Est Pt Level 3 (54747) Est Pt Prev Care >65y(43093) Diagnoses Normal physical examination, routine Z00.00 Essential hypertension I10 High cholesterol E78.00 Osteopenia of neck of left femur M85.852 Osteopenia location: femoral neck Laterality: left Vitamin D deficiency E55.9 Eye exam, routine Z01.00 Chronic pain of left knee M25.562; G89.29 Vaccine counseling Z71.85 Additional Codes PACO-7 Assessment Billing - PACO-7 Assessment Tool: PACO-7 Assessment 18462 ([id number]) PHQ-9 - 86512 - PHQ-9 Billing: Yes ([id number]) Assessment & Plan Assessment & Plan (1) Normal physical examination, routine: Code(s): Z00.00 - Encounter for general adult medical examination without abnormal findings Category: Medical Plan: No significant functional limitation noted. (2) Essential hypertension: Code(s): I10 - Essential (primary) hypertension Category: Medical Plan: Resting blood pressure is slightly low 100/50, goal is above 100/60 but less than 140/90. No dizziness/lightheadedness. Metoprolol decreased to 5 mg daily. Advised to take as prescribed. Follow-up in 1 month or sooner with symptoms or concerns. Verbalized understanding and agreed with treatment plan. (3) High cholesterol: Code(s): E78.00 - Pure hypercholesterolemia, unspecified Category: Medical Plan: Recent total cholesterol and LDL levels are slightly elevated, 207 and 121 respectively. She has been consuming significant amount of cheese and whole milk. Advised to limit foods high in saturated fat and avoid foods high in trans fat. Routine exercise encouraged. Will recheck lipid panel levels in 3 months. Verbalized understanding and agreed with treatment plan. (4) Osteopenia: Code(s): M85.80 - Other specified disorders of bone density and structure, unspecified site Category: Medical Qualifiers: Osteopenia location: femoral neck Laterality: left Qualified Code(s): M85.852 - Other specified disorders of bone density and structure, left thigh Plan: Last dexa scan was on 12/08/2022: Osteopenia. She is on vitamin D3 25 mcg daily. DEXA scan ordered. (5) Vitamin D deficiency: Code(s): E55.9 - Vitamin D deficiency, unspecified Category: Medical Plan: Recent vitamin D level is normal. Continue to take vitamin D3 25 mcg daily. Verbalized understanding and agreed with the plan. (6) Eye exam, routine: Code(s): Z01.00 - Encounter for examination of eyes and vision without abnormal findings Category: Medical Plan: Last eye exam was 5 years ago. Referred to Ophthalmology for routine eye exam. (7) Chronic pain of left knee: Code(s): M25.562 - Pain in left knee; G89.29 - Other chronic pain Category: Medical Plan: Intermittent achiness to her left knee with occasional redness and swelling for the past 3-6 months. No fall, injury, or trauma. No tingling, numbness, or loss of sensation. Ibuprofen provide some relief. Normal left knee exam. No erythema, edema, or tenderness. Continue to take ibuprofen as needed. Warm/cool compresses encouraged. X-ray of the left knee ordered. Will review results and make changes as needed. She has a follow-up appointment in 1 month. Verbalized understanding and agreed with treatment plan. (8) Vaccine counseling: Code(s): Z71.85 - Encounter for immunization safety counseling Category: Medical Plan: She had one PNA vaccine but never received the shingles vaccines. Instructed on the importance of the shingles and pneumonia vaccines and encouraged to get vaccinated for both. She may get the vaccines from the local pharmacy. Verbalized understanding and agreed with treatment plan. Orders: Orders XR DEXA axial skeleton Today M81.0 - Age-related osteoporosis without current pathological fracture XR knee LT 2V Today G89.29 - Other chronic pain, M25.562 - Pain in left knee Referrals Ophthalmology Referral Z01.00 - Encounter for examination of eyes and vision without abnormal findings Medications: New lisinopril 5 mg PO DAILY 90 days 90 tabs 1RF Discontinued lisinopril Discontinued Reason: Doctor's Order 10 mg PO DAILY 90 days 90 tabs 1RF
[2024-10-04 10:03] VITALS: BP 113/55; PULSE 63; RESP 16; TEMP 36.4; O2SAT 98; BMI 29.5
[2024-10-04 10:28] VITALS: BP 100/50
--- OUTSIDE RECORDS SUMMARY | 2024-10-04 11:28 | XMS_ITS | Data Portability ---
Author Organization [facility], [address] Address [address] [place] [address] Assessment No assessment recorded. Plan of Treatment Reminders Order Date Submit Date Provider Last Modified By Organization Details Last Modified Time Details Appointments None recorded. Lab None recorded. Referral None recorded. Procedures None recorded. Surgeries None recorded. Imaging None recorded. Medication Orders Polytrim 10,000 unit-1 mg/mL eye drops 2022 023 [facility]/Pharmacy #[id number], [address] [place], [address], 14:52:34 Patient TargetsNo targets recorded. Patient Instructions Encounter Date Encounter Id Patient Instructions Last Modified By Organization Details Last Modified Time 08/12/2022 [id number] corneal scratches: care instructions Not available 08/12/2022 [...] Not Available Vitals Date Recorded Body height Body mass index (BMI) Body weight Oxygen saturation Oxygen saturation in Arterial blood by Pulse oximetry Pain severity - 0-10 verbal numeric rating [Score] - Reported Heart rate Respiratory rate Body temperature Systolic blood pressure Diastolic blood pressure Provider Name and Address Organization Details Last Updated DateTime 3 160.02 cm 32.8 kg/m2 34128.5 9 g 97 % 97 % 2 74 /min 18 /min 97.8 [degF] 137 mm[Hg] 78 mm[Hg] Amada CORRALES [facility] 3 14:33:30 Social History Question Answer Notes LastModified by [employer] Details LastModified Time Tobacco Smoking Status Never Smoker Amada simmons PA [facility] 08/12/2022 14:34:15 What Is Your Level [...] dose or 50 mcg/0.25mL dose 12/05/2020 completed Amada simmons PA - [facility] 08/12/2022 14:33:55 COVID-19, mRNA, LNP-S, PF, 100 mcg/0.5mL dose or 50 mcg/0.25mL dose 11/07/2020 completed Amada simmons PA - [facility] 08/12/2022 14:33:55 COVID-19, mRNA, LNP-S, PF, 100 mcg/0.5mL dose or 50 mcg/0.25mL dose 08/24/2021 completed Amada simmons PA - [facility] 08/12/2022 14:33:55 Past Encounters Encounter ID Performer Location Encounter Start Date Encounter Closed Date Diagnosis/Indication Diagnosis SNOMED-CT Code Diagnosis ICD10 Code Diagnosis Note [id number] [address] [place] [address] 09/08/2017 10:52:34 09/08/2017 11:43:22 [id number] [address] [place] [address] 04/07/2018 10:19:26 04/07/2018 11:19:50 [id number] [address] [place] [address] 08/03/2019 11:14:57 08/03/2019 12:20:39 [id number] [address] [place] [address] 01/29/2022 10:37:54 01/29/2022 12:06:19 [id number] [address] [place] [address] 11/20/2018 19:29:02 11/21/2018 08:17:51 [id number] [address] [place] [address] 06/05/2015 11:25:36 06/05/2015 11:57:48 [id number] [address] [facility] [place] [address] 11/16/2018 12:51:53 11/16/2018 13:13:41 [id number] [address] [facility] [place] [address] 12/05/2017 15:36:31 12/05/2017 16:32:06 [id number] Francisco Javier Canales MD [address] [facility] [place] [address] 08/12/2022 14:14:43 08/12/2022 14:55:33 Abrasion of left cornea [id number] S05.02XA Health Concerns Section Related Observation LastModified by Organization Detai ls LastModified Time None Recorded Concern Status LastModified by Organization Details LastModified Time None Recorded Advance Directives Directive None Recorded Payers Encounter Date Sequence Insurance Name Policy Number Policy Jennings Covered Member ID Jennings Member ID Guarantor Name 08/03/2019 1 [employer] (PPO) [id number] Brian Lizama [id number] Thuy Lizama 01/29/2022 1 [employer] (PPO) [id number] Brian Lizama [id number] Thuy Lizama 08/12/2022 1 [employer] (PPO) [id number] Brian Lizama [id number] Thuy Lizama Notes Date Note Type Note Provider Name and Address Organization Details Recorded Time 08/12/2022 text/html Eye problemsRepo rted bypatient.Location:[facility] Eye Symptoms:no sensitivity to light; no discharge of pus from the eyes; no pain in the eyes; no blurred vision Severity:mild Francisco Javier Canales MD [address] [place] [address] [place], [address], [place] - [facility] 08/12/2022 14:54:09 OBGyn Episode No OBEpisode recorded.
== END 2024-10-04 10:47 | disposition home or self-care (01) ==
PROVIDERS: PCP Nurse Practitioner Family; Visit Provider Nurse Practitioner Family
DX: Z00.00 Encounter for general adult medical examination without abnormal findings (principal); I10 Essential (primary) hypertension; E78.00 Pure hypercholesterolemia, unspecified; M85.852 Other specified disorders of bone density and structure, left thigh; E55.9 Vitamin D deficiency, unspecified; M25.562 Pain in left knee; G89.29 Other chronic pain; Z71.85 Encounter for immunization safety counseling

== ENCOUNTER → 2024-10-04 09:58 | Outpatient (BNVA) | payer OTHER, SELFPAY | PROVIDERS: PCP Nurse Practitioner Family; Visit Provider Nurse Practitioner Family | DX: Z00.00 Encounter for general adult medical examination without abnormal findings (principal); I10 Essential (primary) hypertension; E78.00 Pure hypercholesterolemia, unspecified; M85.852 Other specified disorders of bone density and structure, left thigh; E55.9 Vitamin D deficiency, unspecified; G89.29 Other chronic pain; M25.562 Pain in left knee; Z71.85 Encounter for immunization safety counseling | CPT/HCPCS: 96127 ==

== ENCOUNTER 2024-10-18 10:43 | Outpatient (REF) | payer OTHER, SELFPAY ==
--- NOTE | ~2024-10-18 | XR_ITS ---
EXAMINATION: XR KNEE 1-2 VIEWS LEFT HISTORY: M25.562 - Pain in left knee COMPARISON: There are no prior studies available for comparison. FINDINGS: AP and lateral views of the left knee are submitted. Osseous mineralization is normal. There is no fracture or dislocation. There is moderate osteoarthritis of the medial compartment, with joint space narrowing and osteophyte formation. Milder changes are noted involving the lateral and patellofemoral compartments. The soft tissues are unremarkable. There is no joint effusion. XR/XR knee LT 2V IMPRESSION: Osteoarthritis of the left knee as described. Electronically signed by: Olman Khan MD 10/18/2024 12:16 PM EDT
--- OUTSIDE RECORDS SUMMARY | 2024-10-18 13:37 | XMS_ITS | Data Portability ---
Author Organization [facility], [address] Address [address] [place] [address] Assessment No assessment recorded. Plan of Treatment Reminders Order Date Submit Date Provider Last Modified By Organization Details Last Modified Time Details Appointments None recorded. Lab None recorded. Referral None recorded. Procedures None recorded. Surgeries None recorded. Imaging None recorded. Medication Orders Polytrim 10,000 unit-1 mg/mL eye drops 2022 023 [facility]/Pharmacy #[id number], [address] [facility] [place], [address], 14:52:34 Patient TargetsNo targets recorded. Patient Instructions Encounter Date Encounter Id Patient Instructions Last Modified By Organization Details Last Modified Time 08/12/2022 [id number] corneal scratches: care instructions Not available 08/12/2022 [...] Updated DateTime 3 160.02 cm 32.8 kg/m2 97774.5 9 g 97 % 97 % 2 74 /min 18 /min 97.8 [degF] 137 mm[Hg] 78 mm[Hg] Amada CORRALES [employer] [facility] 3 14:33:30 Social History Question Answer Notes LastModified by [employer] ion Details LastModified Time Tobacco Smoking Status Never Smoker Amada simmons PA [facility] 08/12/2022 14:34:15 What Is Your Level [...] SNOMED-CT Code Diagnosis ICD10 Code Diagnosis Note [id number] [address] [place] [address] 09/08/2017 10:52:34 09/08/2017 11:43:22 [id number] [address] [place] [address] 04/07/2018 10:19:26 04/07/2018 11:19:50 [id number] [address] [place] [address] 08/03/2019 11:14:57 08/03/2019 12:20:39 [id number] [address] [place] [address] 01/29/2022 10:37:54 01/29/2022 12:06:19 [id number] [address] [place] [address] 11/20/2018 19:29:02 11/21/2018 08:17:51 [id number] [address] [place] [address] 06/05/2015 11:25:36 06/05/2015 11:57:48 [id number] [address] [facility] [address] 11/16/2018 12:51:53 11/16/2018 13:13:41 [id number] [address] [facility] [address] 12/05/2017 15:36:31 12/05/2017 16:32:06 [id number] Francisco Javier Canales MD [address] [facility] [address] 08/12/2022 14:14:43 08/12/2022 14:55:33 Abrasion of left cornea 9032901553 [id number] S05.02XA Health Concerns Section Related Observation LastModified by Organization Detai ls LastModified Time None Recorded Concern Status LastModified by Organization Details LastModified Time None Recorded Advance Directives Directive None Recorded Payers Encounter Date Sequence Insurance Name Policy Number Policy Jennings Covered Member ID Jennings Member ID Guarantor Name 08/03/2019 1 [employer] (PPO) [id number] Brian Lizama [id number] Thuy Orellana Lizama 01/29/2022 1 [employer] (PPO) [id number] 8 Brian Lizama [id number] Thuy A Lizama 08/12/2022 1 [employer] (PPO) [id number] Brian Lizama [id number] Thuy Lizama Notes Date Note Type Note Provider Name and Address Organization Details Recorded Time 08/12/2022 text/html Eye problemsRepo rted bypatient.Location:[facility] Eye Symptoms:no sensitivity to light; no discharge of pus from the eyes; no pain in the eyes; no blurred vision Severity:mild Francisco Javier Canales MD [address] [place] [address] [place], [address], [place] - [facility] 08/12/2022 14:54:09 OBGyn Episode No OBEpisode recorded.
--- OUTSIDE RECORDS SUMMARY | 2024-10-18 13:37 | XMS_ITS | Encounter Summary ---
Author Organization [facility] Address [address] [facility] [place] [address] Care Team Providers Care Svp Innovation Partnerships Name Role Phone Stephen Flores MD Primary Care Provider Unavail able Nisha Navarro DO Primary Care Pro vider Unavailable Aryan Wright MD Primary Care Provider Chon thomas Encounter Details Date Type Department Care Team Description 05/22/2012 Release of Information Medical Records [address] [place] [id number] Abstract, Provider Social History Tobacco Use Types [...] on filedocumented in this encounter Care Teams [employer] Relationship Specialty Start Date End Date Stephen Flores MD PCP - General 06/10/1997 04/10/20 Nisha Navarro DO PCP - General Internal Medicine 04/11/20 08/11/21 Aryan Wright MD PCP - General Internal Medicine 08/12/21 documented as of this encounter
== END 2024-10-18 10:44 | disposition home or self-care (01) ==
LOC: HO.HMGCX 10:43
PROVIDERS: PCP Nurse Practitioner Family; Visit Provider Nurse Practitioner Family
DX: M25.562 Pain in left knee (principal); G89.29 Other chronic pain
CPT/HCPCS: 73560

== ENCOUNTER → 2024-10-18 10:48 | Outpatient (BNV) | payer OTHER, SELFPAY | PROVIDERS: PCP Nurse Practitioner Family; Visit Provider Radiology Diagnostic Radiology | DX: M17.12 Unilateral primary osteoarthritis, left knee (principal) | CPT/HCPCS: 73560 ==

== ENCOUNTER 2024-12-06 14:52 | Outpatient (REF) | payer OTHER, SELFPAY ==
--- OUTSIDE RECORDS SUMMARY | 2024-12-06 16:51 | XMS_ITS | Encounter Summary ---
Author Organization [facility] Address [address] [facility] [place] [address] Care Team Providers Care Contracts Law Professor Name Role Phone Stephen Flores MD Primary Care Provider Unavail able Nisha Navarro DO Primary Care Pro vider Unavailable Aryan Wright MD Primary Care Provider Chon thomas Encounter Details Date Type Department Care Team Description 05/18/2012 Repairer Typewriter Report Medical Records [address] [place] [address] Grzegorz Rosado, FILOMENA Social History Tobacco Use [...] on filedocumented in this encounter Care Teams Contracts Law Professor Relationship Specialty Start Date End Date Stephen Flores MD PCP - General 06/10/1997 04/10/20 Nisha Navarro DO PCP - General Internal Medicine 04/11/20 08/11/21 Aryan Wright MD PCP - General Internal Medicine 08/12/21 documented as of this encounter
--- OUTSIDE RECORDS SUMMARY | 2024-12-06 16:51 | XMS_ITS | Clinical Summary ---
Author Organization [facility] Address [address] [facility] [place] [address] Care Team Providers Care Industrial Spraypainter Name Role Phone Aryan Wright MD Primary Care Provider Chon thomas Allergies No known active allergies Medications Medication Sig Dispensed Refills Start Date End Date Status ASPIRIN-ACETAMINOPHEN OR Take by mouth as needed. 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/2020 Obesity (BMI 30.0-34.9) 02/06/2020 Hyperuricemia 12/19/2017 Varicose veins of both lower extremities 09/20/2011 Deviated nasal septum 02/23/2006 osteopenia, T score - 1.6 lumbar spine 2 005 02/23/2006 Overview: IMO update Resolved Problems Problem Noted Date Resolved Date Osteopenia 09/02/2014 09/02/2014 Immunizations Name Administration Dates Next Due Pneumococcal Conjugate PCV-13 02/06/2020 Tdap 02/26/2012 Family History Medical History Relation Name Comments No Known Problems Father CA Lung Mother Blindness Negative Hx CA Breast Negative Hx CA Colon Negative Hx CA Ovarian Negative Hx Cataract Negative Hx Glaucoma Negative Hx Macular Degeneration Negative Hx Strabismus Negative Hx Relation Name Status Comments Father (Age 90) Mother Social History Tobacco Use Types Packs/Day Years Used Date Smoking Tobacco: Former Cigarettes Q uit: 08/08/1988 Smokeless Tobacco: Former Comments:quit 1988 Alcohol Use Standard Drinks/Week Comments Yes 0 (1 standard drink = 0.6 oz pur e alcohol) 2-3x a week Sex Assigned at Date Recorded Not on file Last Filed Vital Signs Vital Sign Reading Time Taken Comments Blood Pressure 128/60 04/11/2020 4:09 PM EDT Pulse 80 04/11/2020 4:09 PM EDT Temperature 36.7 ??C (98.1 ??F) 04/11/2020 4:09 PM ED T Respiratory Rate 20 04/11/2020 4:09 PM EDT Oxygen Saturation 99% 03/10/2020 11:16 AM EDT Inhaled Oxygen Concentration - - Weight 87.5 kg (193 lb) 04/11/2020 4:09 PM EDT Height 161.3 cm (5' 3.5 ) 04/11/2020 4:09 PM EDT Body Mass Index 33.65 04/11/2020 4:09 PM EDT Plan of Treatment Health Maintenance Due Date Last Done Comments Covid-19 Vaccine (#1) 03/16/1946 SHINGLES VACCINE (1 of 2) 1997 BONE DENSITY SCREENING 2012 09/23/2009, 2004 MAMMOGRAM 07/03/2019 07/03/2018, 06/09, 06/21/2016, Additional history exists PNEUMOCOCCAL VACCINE (2 - PP SV23 or PCV20) 02/05/2021 02/06/2020 COLON CANCER SCREENING 07/19/2021 , 11/16/2005 (Completed) CHOLESTEROL SCREENING 01/22/2022 01/22/2017 , 09/07/2009, 02/23/2006 DTAP/TDAP/TD (2 - Td or Tdap) 02/25/2022 02/26/2012 BMI CHECK/ADVISE 08/08/2024 02/06/2020, 09/02/2014 INFLUENZA (Season Ended) 2025 HEPATITIS C SCREENING Completed 01/22/2017 Care Teams Industrial Spraypainter Relationship Specialty Start Date End Date Aryan Wright MD PCP - General Internal Medicine 08/12/21
--- OUTSIDE RECORDS SUMMARY | 2024-12-06 16:51 | XMS_ITS | Data Portability ---
Author Organization [facility], [address] Address [address] [place] [address] Assessment No assessment recorded. Plan of Treatment Reminders Order Date Submit Date Provider Last Modified By Organization Details Last Modified Time Details Appointments None recorded. Lab None recorded. Referral None recorded. Procedures None recorded. Surgeries None recorded. Imaging None recorded. Medication Orders Polytrim 10,000 unit-1 mg/mL eye drops 2022 023 [facility]/Pharmacy #[id number], [address] [facility] [place], [address], 14:52:34 Patient TargetsNo targets recorded. Patient Instructions Encounter Date Encounter Id Patient Instructions Last Modified By Organization Details Last Modified Time 08/12/2022 [id number] corneal scratches: care instructions Not available 08/12/2022 [...] Updated DateTime 3 160.02 cm 32.8 kg/m2 85681.5 9 g 97 % 97 % 2 74 /min 18 /min 97.8 [degF] 137 mm[Hg] 78 mm[Hg] Amada CORRALES [employer] 3 14:33:30 Social History Question Answer Notes LastModified by [employer] ion Details LastModified Time Tobacco Smoking Status Never Smoker Amada simmons PA [facility] 08/12/2022 14:34:15 What Is Your Level [...] SNOMED-CT Code Diagnosis ICD10 Code Diagnosis Note [id number] [address] [place] [address] 09/08/2017 10:52:34 09/08/2017 11:43:22 [id number] [address] [place] [address] 04/07/2018 10:19:26 04/07/2018 11:19:50 [id number] [address] [place] [address] 08/03/2019 11:14:57 08/03/2019 12:20:39 [id number] [address] [place] [address] 01/29/2022 10:37:54 01/29/2022 12:06:19 [id number] [address] [place] [address] 11/20/2018 19:29:02 11/21/2018 08:17:51 [id number] [address] [place] [address] 06/05/2015 11:25:36 06/05/2015 11:57:48 [id number] [address] [place] [address] 11/16/2018 12:51:53 11/16/2018 13:13:41 [id number] [address] [place] [address] 12/05/2017 15:36:31 12/05/2017 16:32:06 [id number] Francisco Javier Canales MD [address] [place] [address] 08/12/2022 14:14:43 08/12/2022 14:55:33 Abrasion of left cornea [id number] S05.02XA Health Concerns Section Related Observation LastModified by Organization Detai ls LastModified Time None Recorded Concern Status LastModified by Organization Details LastModified Time None Recorded Advance Directives Directive None Recorded Payers Encounter Date Sequence Insurance Name Policy Number Policy Jennings Covered Member ID Jennings Member ID Guarantor Name 08/03/2019 1 [employer] (PPO) [id number] Brian Lizama [id number] Thuy Lizama 01/29/2022 1 [employer] (PPO) [id number] Brian Lizama [id number] Thuy A Lizama 08/12/2022 1 [employer] (PPO) [id number] Brian Lizama [id number] Thuy Lizama Notes Date Note Type Note Provider Name and Address Organization Details Recorded Time 08/12/2022 text/html Eye problemsRepo rted bypatient.Location:[facility] Eye Symptoms:no sensitivity to light; no discharge of pus from the eyes; no pain in the eyes; no blurred vision Severity:mild Francisco Javier Canales MD [address] [place] [address] [place], [address], [place] - [facility] 08/12/2022 14:54:09 OBGyn Episode No OBEpisode recorded.
== END 2024-12-06 14:53 | disposition home or self-care (01) ==
LOC: HO.MAMMO 14:52
PROVIDERS: PCP Nurse Practitioner Family; Visit Provider Nurse Practitioner Family
DX: Z12.31 Encounter for screening mammogram for malignant neoplasm of breast (principal)
CPT/HCPCS: 77063; 77067

== ENCOUNTER → 2024-12-06 15:00 | Outpatient (BNV) | payer OTHER, SELFPAY | PROVIDERS: PCP Nurse Practitioner Family; Visit Provider Internal Medicine | DX: Z12.31 Encounter for screening mammogram for malignant neoplasm of breast (principal) | CPT/HCPCS: 77063; 77067 ==

== ENCOUNTER 2024-12-07 10:33 | Outpatient (REF) | payer OTHER, SELFPAY ==
[2024-12-07 13:14] LABS: MANUAL DIFF FLAG NO
[2024-12-07 13:41] LABS: Creatinine Urine 76.53 mg/dL; Microalbum/Creatinine Ratio Ur 6.5 ug/mg cr (<30)
[2024-12-07 13:51] LABS: Basophils Percent Auto 0.6 % (0-2); Eosinophils Absolute Auto 0.1 X10*3/uL (0.0-0.4); Eosinophils Percent Auto 1.5 % (0-4); Hematocrit 40.5 % (37.0-47.0); Hemoglobin 13.1 g/dl (12.0-16.0); Imm Gran Abs Auto 0.02 X10*3/uL (0.00-0.03); Imm Gran Pct Auto 0.3 % (0.0-0.4); Lymphocytes Absolute Auto 2.5 X10*3/uL (1.2-4.9); Lymphocytes Percent Auto 40.1 % (20-40); Mean Corpuscular HGB Conc 32.3 g/dl (31.0-35.0); Mean Corpuscular Volume 95.7 fL (80.0-98.0); Mean Platelet Volume 11.4 fL (9.4-12.3); Monocytes Absolute Auto 0.6 X10*3/uL (0.1-1.2); Monocytes Percent Auto 8.9 % (2-11); Neutrophils Percent Auto 48.6 % (45-73); Platelet Count 289 X10*3/uL (160-400); Red Blood Count 4.23 X10*6/uL (4.20-5.50); Red Cell Distribution Width 13.2 % (11.0-16.0); White Blood Count 6.2 X10*3/uL (4.8-10.8)
[2024-12-07 13:54] LABS: Cholesterol 215 mg/dL (<200); HDL Cholesterol 78 mg/dL (>40); LDL Cholesterol Calculated 119 mg/dL (<100); Triglycerides 92 mg/dL (<150)
[2024-12-07 14:10] LABS: Vitamin D 25-OH Total 70.4 ng/mL (>30)
== END 2024-12-07 10:34 | disposition home or self-care (01) ==
LOC: HO.HMGCLDS 10:33
PROVIDERS: PCP Nurse Practitioner Family; Visit Provider Nurse Practitioner Family
DX: Z00.00 Encounter for general adult medical examination without abnormal findings (principal); Z13.6 Encounter for screening for cardiovascular disorders
CPT/HCPCS: 36415; 80061; 82043; 82306; 82570; 85025

== ENCOUNTER 2024-12-10 10:56 | Outpatient (AMB) | payer OTHER, SELFPAY ==
--- NOTE | 2024-12-10 10:59 | A.OFFPC_ITS ---
Vital Signs 12/10/24 11:04 Height 5 ft 4 in Weight 172 lb 6 oz BMI 29.6 BP 117/63 Blood Pressure Location Rt brachial Position Sitting Respiration 16 Pulse 76 Pulse Source Pulse Oximeter Temp 97.7 F Temp Source Oral Pulse Oximetry (%) 100 Oxygen Delivery Method Room Air Intake Visit Reasons: 1 mos HTN, flu and TDaP shots. resched Intake Note: patient here for 1 month follow up on HTN, flu and TDaP shots. 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 Is last menstrual period known: No Post menopausal: No Patient : No Allergies No Known Allergies Allergy (Verified 12/10/24 11:08) Medication List - Last Reconciled 12/10/24 by Vladimir Owen CNP cholecalciferol (vitamin D3) 25 mcg PO DAILY 90 days lisinopril 5 mg PO DAILY 90 days Tobacco use date assessed: 12/10/24 Fall risk assessment: No Falls in past year Last assessed Fall Risk: 12/10/24 Dental Screening Dental Screen Date: 12/10/24 Did you have a dental visit in the last 12 months?: Yes Did you have a dental problem in the last 6 months where you did not have access to dental care?: No Was dental information given to patient?: Patient has dentist HPI HPI Comments History of Present Illness Details 79-year-old female presents for hyperten waldemar and imaging review follow- up. She admits to taking her medications as prescribed without adverse reactions. She has been making healthy dietary choices and walking regularly. She notes that she experiences intermittent left knee pain especially when she works. 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 She denies acute symptoms at this time. [facility] Medical History Osteopenia Diverticulosis Elevated cholesterol HTN (hypertension) Surgical History Hx of colonoscopy Social History Household Members: Spouse Both parents involved: No Caregiver staying overnight: No Housing: Condominium Are you a primary career services representative to a significant other at home: No Do you presently have visiting nurse or other home services: No 75 years or older and lives alone: No Alcohol intake: current Alcohol intake frequency: does not drink Alcohol type: wine and hard liquor Patient Tobacco Use Status: Former Tobacco user e-Cigarette/Vaping Use: Never Used Second Hand Smoke Exposure: No service: No Current occupational status: employed Current occupation: [employer] Current occupational exposures/hazards: No Cognitive needs: No Hearing needs: No Vision needs: No Questionnaire Thrive Questionnaire Date Thrive assessed: 10/04/24 I am a: Patient What is your living situation today?: I have a steady place to live Within the past 12 months, did the food you bought not last and you didn't have the money to get more?: Never true Within the past 12 months, did you worry whether your food would run out before you got money to buy more?: Never true Do you have trouble paying for medicines?: No Do you have trouble getting transportation to medical appointments?: No Do you have trouble paying your heating and electricity bill?: No Do you have trouble taking care of your child, family member or friend?: No Do you have trouble with day-to-day activities such as bathing, preparing meals, shopping, managing finances, etc.?: No Are you currently unemployed and looking for a job?: No Are you interested in more education?: No Please select the resources that you would like help with: None Currently or been in a relationship where the following occur: No concerns reported THRIVE Score: 0 PACO-7 AMB Questionnaire PACO-7 Date PACO - 7 assessed: 10/04/24 Source: Developed by Drs. Olman Ordonez, Sharita Hidalgo, Phoenix Pierre and colleagues, with an educational ana from [employer]. Review of Systems Const Details: Const Denies chills, Denies fatigue, Denies fever(s), Denies headache(s) and Denies weakness ENT Denies dizziness and Denies headache(s) Card Denies chest pain, Denies lightheadedness, Denies dyspnea and Denies other (Palpitations) Resp Denies cough, Denies dyspnea, Denies wheezing and Denies other ( shortness of breath) GI Denies abdominal pain, Denies melena, Denies hematochezia, Denies change in bowel habits, Denies dyspepsia and Denies nausea Denies hematuria and Denies dysuria Musc Denies abnormal gait, Denies myalgias, Denies arthralgias, Denies numbness and Denies tingling Skin/Breast Denies rash, Denies unusual bruising and Denies wounds Neuro Denies abnormal gait, Denies dizziness, Denies headache(s), Denies memory loss, Denies numbness, Denies Sensory deficit (Neuro), Denies tingling and Denies weakness Psych Denies anxiety, Denies depression, Denies memory loss Endo Denies cold intolerance, Denies fatigue, Denies heat intolerance, Denies polydipsia and Denies polyuria Aller/Immun Denies wheezing Physical exam (Primary Care) Vital Signs: Last Vital Signs Temp 97.7 F 12/10/24 11:04 Pulse 76 12/10/24 11:04 Resp 16 12/10/24 11:04 BP 117/63 12/10/24 11:04 Pulse Ox 100 12/10/24 11:04 Oxygen Delivery Method Room Air 12/10/24 11:04 BMI result Body Mass Index 29.6 Tobacco/Smoking Status: Tobacco use Status Tobacco use date assessed 12/10/24 12/10/24 11:06 Patient Tobacco Use Status Former Tobacco user 12/10/24 11:01 e-Cigarette/Vaping Use Never Used 12/10/24 11:01 Thrive Assessment: Date of Thrive Assessment Date Thrive assessed 10/04/24 12/10/24 11:01 Currently or been in a relationship where the following occur: No concerns reported Const Other: General: no acute distress and well developed Nutritional Appearance: well nourished Orientation/consciousness: patient oriented x3 HENMT Head: Yes normocephalic and Yes atraumatic Eyes General: appearance normal, both eyes and all related structures Pupils: Equal, round and reactive pupils present EOM: EOMs intact bilaterally Resp Effort & Inspection: normal respiratory effort Auscultation: clear to auscultation bilaterally Cardio Rate: regular rate Rhythm: regular rhythm Heart sounds: S1 normal heart sound present, S2 normal heart sound present, no gallops, no murmurs and no rubs GI Palpation (GI): No Abdominal aortic bruit present, Soft to palpation, nontender, No hepatosplenomegaly present and No Rebound tenderness present Auscultation: normal bowel sounds General: Yes no CVA tenderness Back/Spine/Pelvis Back: no CVA tenderness Cervical Spine: cervical ROM normal and No Cervical spine tenderness Thoracic/Lumbar Spine: thoraco-lumbar ROM normal, No pain with thoraco-lumbar ROM, No thoracic spinal tenderness and No lumbar spinal tenderness Extrem General: Yes normal to inspection, No edema and No calf tenderness Skin General: warm and dry. Normal skin color. Normal skin turgor Neuro General: patient oriented x3, gait normal and no focal neuro deficit Cranial nerves: Yes Equal, round and reactive pupils present Cognition (Neuro): normal cognition Gait exam (Neuro): Normal gait present Sensory Exam: No Sensory deficit (Neuro) Psych Appearance: grossly normal Affect: normal affect Attitude: cooperative Thought process: Normal thought process present Office Procedures Flu Questionnaire Does the patient have a severe egg allergy?: No Does the patient have severe life threatening allergies?: No Does the patient have a fever or illness today?: No Has the patient ever had Guillain-Palmer Syndrome?: No Has the patient ever had any past reaction to a flu shot?: No Immunizations Fluarix Triv 8266-3752 (PF) 45 mcg (15 mcg x 3)/0.5 mL IM syringe Performing Provider: Vladimir Owen CNP Performing Location: [facility] Administered by: Ligia Pacheco RN on 12/10/24 11:27 Dose Route Admin Location Dispensed Lot Number Expiration Date ND Director Of Research And Development 0.5 mL IM Left Deltoid 0.5 mL [id number] 02/04/25 [id number] GUNNAROSMITHKLINE VIS Given Date VIS Provided VIS Publication Date 12/10/24 Single Vaccine 21 Eligibility Eligibility Date Funding Source Not VFC Eligible 12/10/24 Private Administration Comments: Boostrix Tdap 2.5 Lf unit-8 mcg-5 Lf/0.5 mL intramuscular syringe Performing Provider: Vladimir Owen CNP Performing Location: [facility] Administered by: Ligia Pacheco RN on 12/10/24 11:27 Dose Route Admin Location Dispensed Lot Number Expiration Date ND Director Of Research And Development 0.5 mL IM Left Deltoid 0.5 mL [id number] 08/17/26 [id number] GLAXAttendifyITHKLINE VIS Given Date VIS Provided VIS Publication Date 12/10/24 Single Vaccine 21 Eligibility Eligibility Date Funding Source Not VFC Eligible 12/10/24 Private Coding Level of Care Code Est Pt Level 3 (76803) Diagnoses Essential hypertension I10 High cholesterol E78.00 Osteoarthritis of left knee M17.12 Assessment & Plan Assessment & Plan (1) Essential hypertension: Code(s): I10 - Essential (primary) hypertension Category: Medical Plan: Blood pressure is 117/63, within goal of less than 140/90. Routine exercise and low-sodium diet encouraged. Follow-up in 3 months or sooner with symptoms or concerns. Verbalized understanding and agreed with the plan. (2) High cholesterol: Code(s): E78.00 - Pure hypercholesterolemia, unspecified Category: Medical Plan: Recent total cholesterol is slightly elevated, 215 from 207,, LDL is slightly over, 119 from 121. Triglycerides HDL levels are normal. Advised to limit foods high in saturated fat and avoid foods high in trans fat. Routine exercise encouraged. Fast for 10-12 hours, may drink water, performed lipid panel blood work 2-3 days before next visit. Follow-up in 3 months. Verbalized understanding and agreed with the plan. (3) Osteoarthritis of left knee: Code(s): M17.12 - Unilateral primary osteoarthritis, left knee Category: Medical Plan: Recent x-ray of left knee revealed Osteoarthritis of the left knee. She notes that she experiences intermittent left knee pain especially when she works. 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 She denies acute symptoms at this time. May take Tylenol ibuprofen for pain or discomfort. Warm/cool compresses encouraged. Encouraged to avoid prolonged standing. Follow-up with symptoms or concerns. Verbalized understanding and agreed with the plan. Plan She received the Tdap and influenza vaccine at the end of her visi today. Orders: Orders Lipid Panel 2 Months E78.00 - Pure hypercholesterolemia, unspecified Influenza 1050-4417 Immunization Today Z23 - Encounter for immunization TDaP Immunization Today Z23 - Encounter for immunization Medications: New Fluarix Triv [id number] (PF) (flu vacc [id number] 6mos up(PF)) 0.5 mL IM ONCE 0.5 mL 0RF NS Z23 - Encounter for immunization Boostrix Tdap (diphth,pertus(acell),tetanus) 0.5 mL IM ONCE 0.5 mL 0RF NS Z23 - Encounter for immunization
[2024-12-10 11:04] VITALS: BP 117/63; PULSE 76; RESP 16; TEMP 36.5; O2SAT 100; BMI 29.6
--- OUTSIDE RECORDS SUMMARY | 2024-12-10 12:37 | XMS_ITS | Data Portability ---
Author Organization [facility], [address] Address [address] [place] [address] Assessment No assessment recorded. Plan of Treatment Reminders Order Date Submit Date Provider Last Modified By Organization Details Last Modified Time Details Appointments None recorded. Lab None recorded. Referral None recorded. Procedures None recorded. Surgeries None recorded. Imaging None recorded. Medication Orders Polytrim 10,000 unit-1 mg/mL eye drops 2022 023 [facility] #[id number], [address] [facility] [place], [address], 14:52:34 Patient TargetsNo targets recorded. Patient Instructions Encounter Date Encounter Id Patient Instructions Last Modified By Organization Details Last Modified Time 08/12/2022 [id number] corneal scratches: care instructions Not available 08/12/2022 [...] Updated DateTime 3 160.02 cm 32.8 kg/m2 04813.5 9 g 97 % 97 % 2 74 /min 18 /min 97.8 [degF] 137 mm[Hg] 78 mm[Hg] Amada CORRALES [facility] 3 14:33:30 Social History Question Answer Notes LastModified by Gift Pinpointizat ion Details LastModified Time Tobacco Smoking Status Never Smoker Amada simmons PA [facility] 08/12/2022 14:34:15 What Is Your Level [...] SNOMED-CT Code Diagnosis ICD10 Code Diagnosis Note [id number] [address] [place] [address] 09/08/2017 10:52:34 09/08/2017 11:43:22 [id number] [address] [place] [address] 04/07/2018 10:19:26 04/07/2018 11:19:50 [id number] [address] [place] [address] 08/03/2019 11:14:57 08/03/2019 12:20:39 [id number] [address] [place] [address] 01/29/2022 10:37:54 01/29/2022 12:06:19 [id number] [address] [place] [address] 11/20/2018 19:29:02 11/21/2018 08:17:51 [id number] [address] [place] [address] 06/05/2015 11:25:36 06/05/2015 11:57:48 [id number] [address] [place] [address] 11/16/2018 12:51:53 11/16/2018 13:13:41 [id number] [address] [place] [address] 12/05/2017 15:36:31 12/05/2017 16:32:06 [id number] Francisco Javier Canales MD [address] [place] [address] 08/12/2022 14:14:43 08/12/2022 14:55:33 Abrasion of left cornea [id number] S05.02XA Health Concerns Section Related Observation LastModified by Organization Detai ls LastModified Time None Recorded Concern Status LastModified by Organization Details LastModified Time None Recorded Advance Directives Directive None Recorded Payers Encounter Date Sequence Insurance Name Policy Number Policy Jennings Covered Member ID Jennings Member ID Guarantor Name 08/03/2019 1 [employer] (PPO) [id number] Brian Lizama [id number] Thuy Lizama 01/29/2022 1 [employer] (PPO) [id number] Brian Lizama [id number] Thuy A Lizama 08/12/2022 1 [employer] (PPO) [id number] Brian Lizama [id number] Thuy Lizama Notes Date Note Type Note Provider Name and Address Organization Details Recorded Time 08/12/2022 text/html Eye problemsRepo rted bypatient.Location:[facility] Eye Symptoms:no sensitivity to light; no discharge of pus from the eyes; no pain in the eyes; no blurred vision Severity:mild Francisco Javier Canales MD [address] [place] [address] [place], [address], [place] - [facility] 08/12/2022 14:54:09 OBGyn Episode No OBEpisode recorded.
--- OUTSIDE RECORDS SUMMARY | 2024-12-10 12:37 | XMS_ITS | Encounter Summary ---
Author Organization [facility] Address [address] [facility] [place] [address] Care Team Providers Care Battery Charger Tester Name Role Phone Stephen Flores MD Primary Care Provider Unavail able Nisha Navarro DO Primary Care Pro vider Unavailable Aryan Wright MD Primary Care Provider Chon thomas Encounter Details Date Type Department Care Team Description 05/22/2012 Release of Information Medical Records [address] [place] [id number] Abstract, Provider Social History Tobacco Use Types [...] on filedocumented in this encounter Care Teams Battery Charger Tester Relationship Specialty Start Date End Date Stephen Flores MD PCP - General 06/10/1997 04/10/20 Nisha Navarro DO PCP - General Internal Medicine 04/11/20 08/11/21 Aryan Wright MD PCP - General Internal Medicine 08/12/21 documented as of this encounter
--- OUTSIDE RECORDS SUMMARY | 2024-12-10 12:37 | XMS_ITS | Encounter Summary ---
Author Organization [facility] Address [address] [facility] [place] [address] Care Team Providers Care Supervisor Area Name Role Phone Stephen Flores MD Primary Care Provider Unavail able Nisha Navarro DO Primary Care Pro vider Unavailable Aryan Wright MD Primary Care Provider Chon thomas Encounter Details Date Type Department Care Team Description 05/18/2012 Senior Marketing Engineer Report Medical Records [address] [place] [id number] Grzegorz Rosado, DPCatina Social History Tobacco Use Types Packs/Day Years [...] on filedocumented in this encounter Care Teams Supervisor Area Relationship Specialty Start Date End Date Stephen Flores MD PCP - General 06/10/1997 04/10/20 Nisha Navarro DO PCP - General Internal Medicine 04/11/20 08/11/21 Aryan Wright MD PCP - General Internal Medicine 08/12/21 documented as of this encounter
== END 2024-12-10 11:31 | disposition home or self-care (01) ==
LOC: HO.HMCFM 10:57
PROVIDERS: PCP Nurse Practitioner Family; Visit Provider Nurse Practitioner Family
DX: I10 Essential (primary) hypertension (principal); E78.00 Pure hypercholesterolemia, unspecified; M17.12 Unilateral primary osteoarthritis, left knee; Z23 Encounter for immunization

== ENCOUNTER → 2024-12-10 10:56 | Outpatient (BNVA) | payer OTHER, SELFPAY | PROVIDERS: PCP Nurse Practitioner Family; Visit Provider Nurse Practitioner Family | DX: I10 Essential (primary) hypertension (principal); Z23 Encounter for immunization; E78.00 Pure hypercholesterolemia, unspecified; M17.12 Unilateral primary osteoarthritis, left knee | CPT/HCPCS: 90471; 90472; 90656; 90715 ==

== ENCOUNTER 2025-01-14 10:07 | Outpatient (AMB) | payer OTHER, SELFPAY ==
--- NOTE | 2025-01-14 10:10 | MHC.OFFVIS ---
Vital Signs 01/14/25 10:11 Height 5 ft 4 in Weight 171 lb 15.369 oz BMI 29.5 BP 129/58 L Blood Pressure Location Lt brachial Position Sitting Pulse 71 Intake Visit Reasons: 6 month follow up Intake Note: Thuy presents in the office as a 6 month follow up. CC: She states that she had a CT scan and here for results - no other concerns. Improvement Specialist Required: No Allergies No Known Allergies Allergy (Verified 01/14/25 10:12) HPI HPI 6 month follow up: Details: 78 yr old f here for f/u RECAP She had difficult colonoscopy unable to get past stricture in sigmoid depsite different techniques even ba enema and CT colonography couldnt be done she has no real symptoms from stricture, normal appetite no constipation, diarrhea etc CT 08/2024-- collapsed sigmoid- large stool backed up proximally INTERIM: denies abdominal sx no pain no nausea or vomiting denies constipation EXAM: GENERAL: The patient is well developed and nontoxic. VITAL SIGNS:see workflow HEENT: Nonicteric sclerae, PERRLA, EOMI. Oropharynx clear. Moist mucous membranes. Conjunctivae appear well perfused. No thyroid mass. CHEST: Chest wall is nontender. HEART: Regular rate and rhythm without murmurs. LUNGS: Clear to auscultation bilaterally. ABDOMEN: Soft, positive bowel sounds, nontender, no organomegaly.no flank tenderness SKIN: No rash, no excessive bruising, petechiae, or purpura. NEUROLOGIC: Cranial nerves II-XII intact without motor/sensory deficit. Psych: normal affect A/P: 1/ sigmoid stricture from diverticulosis--collapsed sigmoid on CT-prob benign but cant exclud eother pathology PLAN: 1/refer Dr Mcdowell for further assessment, [facility] Medical History Osteopenia Diverticulosis Elevated cholesterol HTN (hypertension) Surgical History Hx of colonoscopy Social History Household Members: Spouse Both parents involved: No Caregiver staying overnight: No Housing: Condominium Are you a primary nursing care partner to a significant other at home: No Do you presently have visiting nurse or other home services: No 75 years or older and lives alone: No Alcohol intake: current Alcohol intake frequency: does not drink Alcohol type: wine and hard liquor Patient Tobacco Use Status: Former Tobacco user e-Cigarette/Vaping Use: Never Used Second Hand Smoke Exposure: No service: No Current occupational status: employed Current occupation: [employer] Current occupational exposures/hazards: No Cognitive needs: No Hearing needs: No Vision needs: No Physical Exam Vital Signs: BMI result Body Mass Index 29.5 Assessment & Plan Assessment & Plan (1) Diverticulosis of colon: Code(s): K57.30 - Diverticulosis of large intestine without perforation or abscess without bleeding Category: Medical Plan: see above Orders: Referrals General Surgery Referral K57.30 - Diverticulosis of large intestine without perforation or abscess without bleeding Coding Level of Care Code Est Pt Level 3 (75701) Diagnoses Diverticulosis of colon K57.30
[2025-01-14 10:11] VITALS: BP 129/58; PULSE 71; BMI 29.5
--- OUTSIDE RECORDS SUMMARY | 2025-01-14 11:12 | XMS_ITS | Data Portability ---
Author Organization [facility], [address] Address [address] [place] [address] Assessment No assessment recorded. Plan of Treatment Reminders Order Date Submit Date Provider Last Modified By Organization Details Last Modified Time Details Appointments None recorded. Lab None recorded. Referral None recorded. Procedures None recorded. Surgeries None recorded. Imaging None recorded. Medication Orders Polytrim 10,000 unit-1 mg/mL eye drops 2022 023 [facility]/Pharmacy #[id number], [address] [facility] [place], [address], 14:52:34 Patient TargetsNo targets recorded. Patient Instructions Encounter Date Encounter Id Patient Instructions Last Modified By Organization Details Last Modified Time 08/12/2022 [id number] corneal scratches: care instructions Not available 08/12/2022 [...] Details Recorded Time hysterectomy completed Amada Wick [facility] 08/12/2022 14:34:28 Imaging Results None recorded. [...] saturation in Arterial blood by Pulse oximetry Heart rate Respiratory rate Body temperature Systolic blood pressure Diastolic blood pressure Provider Name and Address Organization Details Last Updated DateTime 3 160.02 cm 32.8 kg/m2 55581.5 9 g 97 % 97 % 74 /min 18 /min 97.8 [degF] 137 mm[Hg] 78 mm[Hg] Amada Chacon [facility] 14:33:30 Social History Question Answer Notes LastModified by [employer] Details LastModified Time Tobacco Smoking Status Never Smoker Amada simmons [facility] 08/12/2022 14:34:15 Have You Had Direct Contact, Or Contact During Intimacy, With Monkeypox Rash, Scabs, Or Body Fluids From A Person With Monkeypox? No Information not available 08/12/2022 Have You Recently Traveled Abroad? No Information not available 08/12/2022 Sex: Unknown Functional Status Question Answer Note LastModified by [employer] Details LastModified Time Do you use any illicit or recreational drugs? No Information not available 08/12/2022 Do you or have you ever used any other forms of tobacco or nicotine? No Information not available 08/12/2022 What is your level of alcohol consumption? None Information not available 08/12/2022 Mental Status None recorded. Family History Relationship [...] dose or 50 mcg/0.25mL dose 11/07/2020 completed SAVANNA Canales [facility] 08/12/2022 14:33:55 COVID-19, mRNA, LNP-S, PF, 100 mcg/0.5mL dose or 50 mcg/0.25mL dose 08/24/2021 completed SAVANNA Canales - [facility] 08/12/2022 14:33:55 Past Encounters Encounter ID Performer Location Encounter Start Date Encounter Closed Date Diagnosis/Indication Diagnosis SNOMED-CT Code Diagnosis ICD10 Code Diagnosis Note [id number] [address] [place] [address] 09/08/2017 10:52:34 09/08/2017 11:43:22 [id number] [address] [place] [address] 04/07/2018 10:19:26 04/07/2018 11:19:50 [id number] [address] [place] [address] 08/03/2019 11:14:57 08/03/2019 12:20:39 [id number] [address] [place] [address] 01/29/2022 10:37:54 01/29/2022 12:06:19 [id number] [address] [place] [address] 11/20/2018 19:29:02 11/21/2018 08:17:51 [id number] [address] [place] [address] 06/05/2015 11:25:36 06/05/2015 11:57:48 [id number] [address] [place] [address] 11/16/2018 12:51:53 11/16/2018 13:13:41 [id number] [address] [place] [address] 12/05/2017 15:36:31 12/05/2017 16:32:06 [id number] Francisco Javier Canales MD [address] [place] [address] 08/12/2022 14:14:43 08/12/2022 14:55:33 Abrasion of left cornea [id number] S05.02XA Health Concerns Section Related Observation LastModified by Organization Detai ls LastModified Time None Recorded Concern Status LastModified by Organization Details LastModified Time None Recorded Advance Directives Directive None Recorded Payers Insurance Date Sequence Insurance Name Policy Number Policy Jennings Covered Member ID Jennings Member ID Guarantor Name 08/12/2022 1 [facility] (O) [id number] Brian Lizama [id number] Thuy Lizama Notes Date Note Type Note Provider Name and Address Organization Details Recorded Time 08/12/2022 text/html Eye problemsRepo rted bypatient.Location:[facility] Eye Symptoms:no sensitivity to light; no discharge of pus from the eyes; no pain in the eyes; no blurred vision Severity:mild Francisco Javier Canales MD [address] [place] [address] [place], [address], [place] - [facility] 08/12/2022 14:54:09 OBGyn Episode No OBEpisode recorded.
== END 2025-01-14 10:28 | disposition home or self-care (01) ==
LOC: HO.HGI 10:08
PROVIDERS: PCP Nurse Practitioner Family; Visit Provider Internal Medicine Gastroenterology
DX: K57.30 Diverticulosis of large intestine without perforation or abscess without bleeding (principal)
CPT/HCPCS: 99213

== ENCOUNTER 2025-02-13 09:15 | Outpatient (AMB) | payer OTHER, SELFPAY ==
--- NOTE | 2025-02-13 09:26 | MHC.OFFVIS ---
Vital Signs 02/13/25 09:40 Height 5 ft 4 in Weight 176 lb BMI 30.2 BP 139/75 Blood Pressure Location Rt brachial Position Sitting Pulse 72 Intake Visit Reasons: sigmoid colectomy ref by farrukh Intake Note: Patient referred by Dr. Mohr for assessment, sigmoid colectomy, v tight stricture. Unable to complete colonoscopy, or ba enema/ct colonography. Patient c/o: deniespain, nausea, diarrhea, constipation. Care Management Assistant Required: No Accompanied by: Self / Same As Patient Allergies No Known Allergies Allergy (Verified 02/13/25 09:27) Medication List - Last Reconciled 02/13/25 by Leroy Mcdowell MD cholecalciferol (vitamin D3) 25 mcg PO DAILY 90 days lisinopril 5 mg PO DAILY 90 days HPI HPI sigmoid colectomy ref by farrukh: Details: [age] year old female referred for sigmoid narrowing. The patient has been undergoing follow up with Dr. Mohr. She had a colonoscopy in 2022 which showed some edema a segment of the sigmoid colon consistent with diverticular disease. She had a repeat colonoscopy last year but he was not able to pass the scope through the mid sigmoid in view of narrowing The patient had a barium enema study, CT colonography last year suggesting narrowing in the mid sigmoid. She does state that she really has had no problems with bowel movements nor with the abdominal pain. She says she continues to have good bowel movements and good oral intake. [facility] Medical History (Updated 02/13/25 @ 10:02 by Leroy Mcdowell MD) Osteopenia Diverticulosis Elevated cholesterol HTN (hypertension) Surgical History Hx of colonoscopy Social History Household Members: Spouse Both parents involved: No Caregiver staying overnight: No Housing: Condominium Are you a primary customer care coordinator to a significant other at home: No Do you presently have visiting nurse or other home services: No 75 years or older and lives alone: No Alcohol intake: current Alcohol intake frequency: does not drink Alcohol type: wine and hard liquor Patient Tobacco Use Status: Former Tobacco user e-Cigarette/Vaping Use: Never Used Second Hand Smoke Exposure: No service: No Current occupational status: employed Current occupation: [employer] Current occupational exposures/hazards: No Cognitive needs: No Hearing needs: No Vision needs: No Review of Systems Const Denies chills and Denies fever(s) Card Denies chest pain, Denies dyspnea and Denies dyspnea on exertion Resp Denies cough, Denies dyspnea and Denies dyspnea on exertion GI Denies hematochezia and Denies change in bowel habits Denies hematuria Musc Denies back pain and Denies limited range of motion Neuro Denies focal weakness and Denies convulsions Psych Denies depression and Denies mood swings Physical Exam Vital Signs: Last Vital Signs Pulse 72 02/13/25 09:40 BP 139/75 02/13/25 09:40 BMI result Body Mass Index 30.2 Const General: comfortable and no acute distress Orientation/consciousness: patient oriented x3 Neck Neck: Yes no lymphadenopathy Resp Auscultation: clear to auscultation bilaterally Cardio Rhythm: regular rhythm GI Palpation (GI): Soft to palpation, nontender and no guarding Neuro General: patient oriented x3 Assessment & Plan Assessment & Plan (1) Colon stricture: Code(s): K56.699 - Other intestinal obstruction unspecified as to partial versus complete obstruction Category: Medical Plan: She has what appears to be a stricture in the mid sigmoid. This is likely secondary to diverticular disease. She had a colonoscopy attempted but Dr. Mohr had encountered this narrowing in the mid sigmoid. Her CEA level is normal She actually denies any symptoms currently. She says she never really had any abdominal pain or problems with bowel movements I am going to review her CAT scans and images with the radiologist. I explained to her that we may proceed with we sigmoid resection down the line. I explained the technique of hand assisted laparoscopic resection possible open. I reviewed the risks, benefits, and alternatives She is in no navas to have the surgery done in the absence of symptoms. I will see her again in the office in about 3 weeks after discussion and review of her case with Dr. Mohr. Coding Level of Care Code New Pt Level 3 (49277) Diagnoses Colon stricture K56.699
--- OUTSIDE RECORDS SUMMARY | 2025-02-13 09:32 | XMS_ITS | Encounter Summary ---
Author Organization [facility] Address [address] [facility] [place] [address] Care Team Providers Care Hoop Riveter Name Role Phone Stephen Flores MD Primary Care Provider Unavail able Nisha Navarro DO Primary Care Pro vider Unavailable Aryan Wright MD Primary Care Provider Chon thomas Encounter Details Date Type Department Care Team Description 05/22/2012 Release of Information Medical Records [address] [place] [id number] Abstract, Provider Social History Tobacco Use Types [...] on filedocumented in this encounter Care Teams Hoop Riveter Relationship Specialty Start Date End Date Stephen Flores MD PCP - General 06/10/1997 04/10/20 Nisha Navarro DO PCP - General Internal Medicine 04/11/20 08/11/21 Aryan Wright MD PCP - General Internal Medicine 08/12/21 documented as of this encounter
--- OUTSIDE RECORDS SUMMARY | 2025-02-13 09:32 | XMS_ITS | Data Portability ---
Author Organization [facility], [address] Address [address] [place] [address] Assessment No assessment recorded. Plan of Treatment Reminders Order Date Submit Date Provider Last Modified By Organization Details Last Modified Time Details Appointments None recorded. Lab None recorded. Referral None recorded. Procedures None recorded. Surgeries None recorded. Imaging None recorded. Medication Orders Polytrim 10,000 unit-1 mg/mL eye drops 2022 023 [facility]/Pharmacy #[id number], [address] [facility] , [place], [address], 14:52:34 Patient TargetsNo targets recorded. Patient Instructions Encounter Date Encounter Id Patient Instructions Last Modified By Organization Details Last Modified Time 08/12/2022 [id number] corneal scratches: care instructions Not available 08/12/2022 [...] Organization Details Recorded Time hysterectomy completed Amada [facility] 08/12/2022 14:34:28 Imaging Results None recorded. [...] Heart rate Respiratory rate Body temperature Systolic And Diastolic Provider Name and Address Organization Details Last Updated DateTime 3 160.02 cm 32.8 kg/m2 73695.5 9 g 97 % 97 % 74 /min 18 /min 97.8 [degF] 137/78 mm[Hg] Amada Chacon [employer] 14:33:30 Social History Question Answer Notes LastModified by [employer] Details LastModified Time Tobacco Smoking Status Never Smoker Amada simmons [employer] 08/12/2022 14:34:15 Have You Had Direct Contact, Or Contact During Intimacy, With Monkeypox Rash, Scabs, Or Body Fluids From A Person With Monkeypox? No Information not available 08/12/2022 Have You Recently Traveled Abroad? No Information not available 08/12/2022 Sex: Unknown Functional Status Question Answer Note LastModified by [employer] Details LastModified Time Do you use any [...] SNOMED-CT Code Diagnosis ICD10 Code Diagnosis Note [id number] [address] [place] [address] 09/08/2017 10:52:34 09/08/2017 11:43:22 [id number] [address] [place] [address] 04/07/2018 10:19:26 04/07/2018 11:19:50 [id number] [address] [place] [address] 08/03/2019 11:14:57 08/03/2019 12:20:39 [id number] [address] [place] [address] 01/29/2022 10:37:54 01/29/2022 12:06:19 [id number] [address] [place] [address] 11/20/2018 19:29:02 11/21/2018 08:17:51 [id number] [address] [place] [address] 06/05/2015 11:25:36 06/05/2015 11:57:48 [id number] [address] [place] [address] 11/16/2018 12:51:53 11/16/2018 13:13:41 [id number] [address] [place] [address] 12/05/2017 15:36:31 12/05/2017 16:32:06 [id number] Francisco Javier Canales MD [address] [place] [address] 08/12/2022 14:14:43 08/12/2022 14:55:33 Abrasion of left cornea [id number] S05.02XA Health Concerns Section Related Observation LastModified by Organization Detai ls LastModified Time None Recorded Concern Status LastModified by Organization Details LastModified Time None Recorded Advance Directives Directive None Recorded Payers Insurance Date Sequence Insurance Name Policy Number Policy Jennings Covered Member ID Jennings Member ID Guarantor Name 08/12/2022 1 [facility] (O) [id number] Brian Lizama [id number] Thuy Lizama Notes Date Note Type Note Provider Name and Address Organization Details Recorded Time 08/12/2022 text/html Eye problemsRepo rted bypatient.Location:[facility] Eye Symptoms:no sensitivity to light; no discharge of pus from the eyes; no pain in the eyes; no blurred vision Severity:mild Francisco Javier Canales MD [address] [place] [address] [place], [address], [place] - [facility] 08/12/2022 14:54:09 OBGyn Episode No OBEpisode recorded.
[2025-02-13 09:40] VITALS: BP 139/75; PULSE 72; BMI 30.2
== END 2025-02-13 10:01 | disposition home or self-care (01) ==
LOC: HO.HGS 09:16
PROVIDERS: PCP Nurse Practitioner Family; Visit Provider Surgery
DX: K56.699 Other intestinal obstruction unspecified as to partial versus complete obstruction (principal)
CPT/HCPCS: 99203

== ENCOUNTER 2025-03-18 07:46 | Outpatient (REF) | payer OTHER, SELFPAY ==
[2025-03-18 10:28] LABS: Cholesterol 191 mg/dL (<200); HDL Cholesterol 57 mg/dL (>40); Triglycerides 74 mg/dL (<150)
== END 2025-03-18 07:47 | disposition home or self-care (01) ==
LOC: HO.HMGCLDS 07:46
PROVIDERS: PCP Nurse Practitioner Family; Visit Provider Nurse Practitioner Family
DX: K56.699 Other intestinal obstruction unspecified as to partial versus complete obstruction (principal); E78.00 Pure hypercholesterolemia, unspecified; Z79.899 Other long term (current) drug therapy
CPT/HCPCS: 36415; 80061

== ENCOUNTER 2025-03-18 12:54 | Outpatient (AMB) | payer OTHER, SELFPAY ==
--- NOTE | 2025-03-18 13:03 | MHC.OFFVIS ---
Vital Signs 03/18/25 13:07 Height 5 ft 4 in Weight 172 lb BMI 29.5 BP 129/62 Blood Pressure Location Rt brachial Position Sitting Pulse 75 Intake Visit Reasons: 1 month visit sigmoid colectomy ref by farrukh Intake Note: Patient being seen for 1mo follow up 2nd opinion, sigmoid colectomy. Referred by Dr. Mohr. Patient c/o: no changes since last visit. LING: 02-13-2025 Reliability Technologist Required: No Accompanied by: Self / Same As Patient Allergies No Known Allergies Allergy (Verified 03/18/25 13:09) Medication List - Last Reconciled 03/18/25 by Leroy Mcdowell MD cholecalciferol (vitamin D3) 25 mcg PO DAILY 90 days lisinopril 5 mg PO DAILY 90 days HPI HPI 1 month visit sigmoid colectomy ref by farrukh: Details: She is here for follow-up for a history of sigmoid narrowing. This was seen initially on screening colonoscopy last year. She had a moderate stricture on the mid sigmoid on a barium enema study as well at that time. I saw her in the office last month. She did not have any symptoms then so we had held off on any surgical intervention. She says that she continues to feel well. She denies any changes in her bowel habits. She denies any abdominal pain. She has good oral intake. She denies any bloating or fullness. She says she has good bowel movements. [facility] Medical History Osteopenia Diverticulosis Elevated cholesterol HTN (hypertension) Surgical History Hx of colonoscopy Social History Household Members: Spouse Both parents involved: No Caregiver staying overnight: No Housing: Condominium Are you a primary personal care assistant to a significant other at home: No Do you presently have visiting nurse or other home services: No 75 years or older and lives alone: No Alcohol intake: current Alcohol intake frequency: does not drink Alcohol type: wine and hard liquor Patient Tobacco Use Status: Former Tobacco user e-Cigarette/Vaping Use: Never Used Second Hand Smoke Exposure: No service: No Current occupational status: employed Current occupation: [employer] Current occupational exposures/hazards: No Cognitive needs: No Hearing needs: No Vision needs: No Review of Systems Const Denies chills and Denies fever(s) Card Denies chest pain, Denies dyspnea and Denies dyspnea on exertion Resp Denies cough, Denies dyspnea and Denies dyspnea on exertion GI Denies hematochezia and Denies change in bowel habits Denies hematuria Musc Denies back pain and Denies limited range of motion Neuro Denies focal weakness and Denies convulsions Psych Denies depression and Denies mood swings Physical Exam Vital Signs: Last Vital Signs Pulse 75 03/18/25 13:07 BP 129/62 03/18/25 13:07 BMI result Body Mass Index 29.5 Const General: comfortable and no acute distress Orientation/consciousness: patient oriented x3 Neck Neck: Yes no lymphadenopathy Resp Auscultation: clear to auscultation bilaterally Cardio Rhythm: regular rhythm GI Palpation (GI): Soft to palpation, nontender and no guarding Neuro General: patient oriented x3 Assessment & Plan Assessment & Plan (1) Colon stricture: Code(s): K56.699 - Other intestinal obstruction unspecified as to partial versus complete obstruction Category: Medical Plan: She continues to remain asymptomatic with her sigmoid stricture. Previous colonoscopy suggest this to be a benign narrowing likely from diverticular disease. She says she feels well over all and not really want to proceed with surgical intervention at this time. I am going to schedule her for a repeat CAT scan with oral contrast to re-evaluate the area. I will see her in the office again after that and review her options. Again, currently she has a very benign exam and seems to be asymptomatic. She is comfortable with the plan above. Coding Level of Care Code Est Pt Level 3 (68371) Diagnoses Colon stricture K56.699
[2025-03-18 13:07] VITALS: BP 129/62; PULSE 75; BMI 29.5
== END 2025-03-18 13:31 | disposition home or self-care (01) ==
LOC: HO.HGS 12:55
PROVIDERS: PCP Nurse Practitioner Family; Visit Provider Surgery
DX: K56.699 Other intestinal obstruction unspecified as to partial versus complete obstruction (principal)
CPT/HCPCS: 99213

== ENCOUNTER 2025-03-19 10:43 | Outpatient (AMB) | payer OTHER, SELFPAY ==
--- NOTE | 2025-03-19 10:46 | MHC.PC.OV ---
Vital Signs 03/19/25 10:50 Height 5 ft 4 in Weight 171 lb 2 oz BMI 29.4 BP 112/68 Blood Pressure Location Lt brachial Position Sitting Respiration 16 Pulse 66 Pulse Source Pulse Oximeter Temp 97.2 F Temp Source Temporal Artery Scan Pulse Oximetry (%) 99 Oxygen Delivery Method Room Air Intake Visit Reasons: 3 mos HTN, HLD Intake Note: Thuy presents in the office today to go over her most recent lab results and following up to hypertension. Allergies No Known Allergies Allergy (Verified 03/19/25 10:50) Tobacco use date assessed: 03/19/25 Fall risk assessment: No Falls in past year Last assessed Fall Risk: 03/19/25 Dental Screening Dental Screen Date: 03/19/25 Did you have a dental visit in the last 12 months?: Yes Did you have a dental problem in the last 6 months where you did not have access to dental care?: No Was dental information given to patient?: Patient has dentist HPI HPI Comments History of Present Illness Details 79-year-old female presents for hypertension and hyperlipidemia follow-up. She admits to taking lisinopril and vitamin D3 as prescribed without adverse reactions. She admits to making healthy lifestyle changes. She offers no complaints and denies acute symptoms at this time. She is followed by Dr Mcdowell, [facility] surgery, for sigmoid stricture from diverticulosis--collapsed sigmoid on CT-prob. [facility] Medical History Osteopenia Diverticulosis Elevated cholesterol HTN (hypertension) Surgical History Hx of colonoscopy Social History (Updated 03/19/25 @ 10:50 by Susan Ugalde MA) Household Members: Spouse Both parents involved: No Caregiver staying overnight: No Housing: Condominium Are you a primary customer care team coach to a significant other at home: No Do you presently have visiting nurse or other home services: No 75 years or older and lives alone: No Alcohol intake: current Alcohol intake frequency: does not drink Alcohol type: wine and hard liquor Patient Tobacco Use Status: Former Tobacco user e-Cigarette/Vaping Use: Never Used Second Hand Smoke Exposure: No Use of substances other than those prescribed or required for medical reasons: No service: No Current occupational status: employed Current occupation: [employer] Current occupational exposures/hazards: No Cognitive needs: No Hearing needs: No Vision needs: No Questionnaire Thrive Questionnaire Date Thrive assessed: 10/04/24 I am a: Patient What is your living situation today?: I have a steady place to live Within the past 12 months, did the food you bought not last and you didn't have the money to get more?: Never true Within the past 12 months, did you worry whether your food would run out before you got money to buy more?: Never true Do you have trouble paying for medicines?: No Do you have trouble getting transportation to medical appointments?: No Do you have trouble paying your heating and electricity bill?: No Do you have trouble taking care of your child, family member or friend?: No Do you have trouble with day-to-day activities such as bathing, preparing meals, shopping, managing finances, etc.?: No Are you currently unemployed and looking for a job?: No Are you interested in more education?: No Please select the resources that you would like help with: None Currently or been in a relationship where the following occur: No concerns reported THRIVE Score: 0 PACO-7 AMB Questionnaire PACO-7 Date PACO - 7 assessed: 10/04/24 Source: Developed by Drs. Olman Ordonez, Sharita Hidalgo, Phoenix Pierre and colleagues, with an educational ana from [employer]. Review of Systems Const Details: Const Denies chills, Denies fatigue, Denies fever(s), Denies headache(s) and Denies weakness ENT Denies dizziness and Denies headache(s) Card Denies chest pain, Denies lightheadedness, Denies dyspnea and Denies other (Palpitations) Resp Denies cough, Denies dyspnea, Denies wheezing and Denies other ( shortness of breath) GI Denies abdominal pain, Denies melena, Denies hematochezia, Denies change in bowel habits, Denies dyspepsia and Denies nausea Denies hematuria and Denies dysuria Musc Denies abnormal gait, Denies myalgias, Denies arthralgias, Denies numbness and Denies tingling Skin/Breast Denies rash, Denies unusual bruising and Denies wounds Neuro Denies abnormal gait, Denies dizziness, Denies headache(s), Denies memory loss, Denies numbness, Denies Sensory deficit (Neuro), Denies tingling and Denies weakness Psych Denies anxiety, Denies depression, Denies memory loss Endo Denies cold intolerance, Denies fatigue, Denies heat intolerance, Denies polydipsia and Denies polyuria Aller/Immun Denies wheezing Physical exam (Primary Care) Vital Signs: Last Vital Signs Temp 97.2 F 03/19/25 10:50 Pulse 66 03/19/25 10:50 Resp 16 03/19/25 10:50 BP 112/68 03/19/25 10:50 Pulse Ox 99 03/19/25 10:50 Oxygen Delivery Method Room Air 03/19/25 10:50 BMI result Body Mass Index 29.4 Tobacco/Smoking Status: Tobacco use Status Tobacco use date assessed 03/19/25 03/19/25 10:54 Patient Tobacco Use Status Former Tobacco user 03/19/25 10:50 e-Cigarette/Vaping Use Never Used 03/19/25 10:50 Thrive Assessment: Date of Thrive Assessment Date Thrive assessed 10/04/24 03/19/25 10:48 Currently or been in a relationship where the following occur: No concerns reported Const Other: General: no acute distress and well developed Nutritional Appearance: well nourished Orientation/consciousness: patient oriented x3 HENMT Head: Yes normocephalic and Yes atraumatic Eyes General: appearance normal, both eyes and all related structures Pupils: Equal, round and reactive pupils present EOM: EOMs intact bilaterally Resp Effort & Inspection: normal respiratory effort Auscultation: clear to auscultation bilaterally Cardio Rate: regular rate Rhythm: regular rhythm Heart sounds: S1 normal heart sound present, S2 normal heart sound present, no gallops, no murmurs and no rubs GI Palpation (GI): No Abdominal aortic bruit present, Soft to palpation, nontender, No hepatosplenomegaly present and No Rebound tenderness present Auscultation: normal bowel sounds General: Yes no CVA tenderness Back/Spine/Pelvis Back: no CVA tenderness Cervical Spine: cervical ROM normal and No Cervical spine tenderness Thoracic/Lumbar Spine: thoraco-lumbar ROM normal, No pain with thoraco-lumbar ROM, No thoracic spinal tenderness and No lumbar spinal tenderness Extrem General: Yes normal to inspection, No edema and No calf tenderness Skin General: warm and dry. Normal skin color. Normal skin turgor Neuro General: patient oriented x3, gait normal and no focal neuro deficit Cranial nerves: Yes Equal, round and reactive pupils present Cognition (Neuro): normal cognition Gait exam (Neuro): Normal gait present Sensory Exam: No Sensory deficit (Neuro) Psych Appearance: grossly normal Affect: normal affect Attitude: cooperative Thought process: Normal thought process present Coding Level of Care Code Est Pt Level 3 (83872) Diagnoses Essential hypertension I10 High cholesterol E78.00 Assessment & Plan Assessment & Plan (1) Essential hypertension: Code(s): I10 - Essential (primary) hypertension Category: Medical Plan: Resting blood pressure is 112/68, within goal of less than 140/90. Continue current treatment regimen. Low-sodium diet encouraged. Follow-up in 3 months or sooner with symptoms or concerns. Verbalized understanding and agreed with the plan. (2) High cholesterol: Code(s): E78.00 - Pure hypercholesterolemia, unspecified Category: Medical Plan: Recent total cholesterol improved to 191 from 215, LDL is 120 from 119. Triglycerides and HDL levels are normal. Advised to limit foods high in saturated fat and avoid foods high in trans fat Routine exercise encouraged. Fast for 10-12 hours, may drink water, and perform lipid panel blood work 2-3 days before next visit. Follow-up in 3 months. Verbalized understanding and agreed with the treatment plan.
[2025-03-19 10:50] VITALS: BP 112/68; PULSE 66; RESP 16; TEMP 36.2; O2SAT 99; BMI 29.4
--- OUTSIDE RECORDS SUMMARY | 2025-03-19 11:50 | XMS_ITS | Encounter Summary ---
Author Organization [facility] Address [address] [place] [address] Care Team Providers Care Mobile Home Servicer Name Role Phone Stephen Flores MD Primary Care Provider Unavail able Nisha Navarro DO Primary Care Pro vider Unavailable Aryan Wright MD Primary Care Provider Chon thomas Encounter Details Date Type Department Care Team Description 05/22/2012 Release of Information Medical Records [address] [place] [id number] Abstract, Provider Social History Tobacco Use Types [...] on filedocumented in this encounter Care Teams Mobile Home Servicer Relationship Specialty Start Date End Date Stephen Flores MD PCP - General 06/10/1997 04/10/20 Nisha Navarro DO PCP - General Internal Medicine 04/11/20 08/11/21 Aryan Wright MD PCP - General Internal Medicine 08/12/21 documented as of this encounter
== END 2025-03-19 11:15 | disposition home or self-care (01) ==
LOC: HO.HMCFM 10:44
PROVIDERS: PCP Nurse Practitioner Family; Visit Provider Nurse Practitioner Family
DX: I10 Essential (primary) hypertension (principal); E78.00 Pure hypercholesterolemia, unspecified

== ENCOUNTER 2025-06-24 09:30 | Outpatient (REF) | payer OTHER, SELFPAY ==
[2025-06-24 12:39] LABS: Cholesterol 192 mg/dL (<200); HDL Cholesterol 68 mg/dL (>40); Triglycerides 69 mg/dL (<150)
--- OUTSIDE RECORDS SUMMARY | 2025-06-24 20:10 | XMS_ITS | Data Portability ---
Author Organization [facility] Pineda [facility], [address] Address [address] [place] [address] Assessment No assessment recorded. Plan of Treatment Reminders Order Date Submit Date Provider Last Modified By Organization Details Last Modified Time Details Appointments None recorded. Lab None recorded. Referral None recorded. Procedures None recorded. Surgeries None recorded. Imaging None recorded. Medication Orders Polytrim 10,000 unit-1 mg/mL eye drops 2022 023 [facility]acy #[id number], [address] [facility] , [place], [address], 14:52:34 Patient TargetsNo targets recorded. Patient Instructions Encounter Date Encounter Id Patient Instructions Last Modified By Organization Details Last Modified Time 08/12/2022 [id number] corneal scratches: care instructions Not available 08/12/2022 [...] Updated DateTime 3 160.02 cm 32.8 kg/m2 49919.5 9 g 97 % 97 % 2 74 /min 18 /min 97.8 [degF] 137/78 mm[Hg] Amada Chacon [facility] 3 14:33:30 Social History Question Answer Notes LastModified by [employer] Details LastModified Time Tobacco Smoking Status Never Smoker Amada simmons [facility] 08/12/2022 14:34:15 Have You Had Direct Contact, Or Contact During Intimacy, With Monkeypox Rash, Scabs, Or Body Fluids From A Person With Monkeypox? No Information not available 08/12/2022 Have You Recently Traveled Abroad? No Information not available 08/12/2022 Sex: Unknown Functional Status Question Answer Note LastModified by [employer] Details LastModified Time Do you use any [...] 50 mcg/0.25mL dose 11/07/2020 completed SAVANNA Canales - [facility] 08/12/2022 14:33:55 COVID-19, mRNA, LNP-S, PF, 100 mcg/0.5mL dose or 50 mcg/0.25mL dose 08/24/2021 completed SAVANNA Canales - [facility] 08/12/2022 14:33:55 Past Encounters Encounter ID Performer Location Encounter Start Date Encounter Closed Date Diagnosis/Indication Diagnosis SNOMED-CT Code Diagnosis ICD10 Code Diagnosis IMO Codes Diagnosis Note [id number] [address] [place] [address] 09/08/2017 10:52:34 09/08/2017 11:43:22 [id number] [address] [place] [address] 04/07/2018 10:19:26 04/07/2018 11:19:50 [id number] [address] [place] [address] 08/03/2019 11:14:57 08/03/2019 12:20:39 [id number] [address] [place] [address] 01/29/2022 10:37:54 01/29/2022 12:06:19 [id number] [address] [place] [address] 11/20/2018 19:29:02 11/21/2018 08:17:51 [id number] [address] [place] [address] 06/05/2015 11:25:36 06/05/2015 11:57:48 [id number] [address] [place] [address] 11/16/2018 12:51:53 11/16/2018 13:13:41 [id number] [address] [place] [address] 12/05/2017 15:36:31 12/05/2017 16:32:06 [id number] Francisco Javier Canales MD [address] [place] [address] 08/12/2022 14:14:43 08/12/2022 14:55:33 Abrasion of left cornea [id number] S05.02XA Health Concerns Section Related Observation LastModified by Organization Detai ls LastModified Time None Recorded Concern Status LastModified by Organization Details LastModified Time None Recorded Advance Directives Directive None Recorded Payers Insurance Date Sequence Insurance Name Policy Number Policy Jennings Covered Member ID Jennings Member ID Guarantor Name 08/12/2022 1 [facility] [id number] Brian Lizama [id number] Thuy Lizama Notes Date Note Type Note Provider Name and Address Organization Details Recorded Time 08/12/2022 text/html Eye problemsRepo rted by PatientHPIFor location, patient reportsleft. For eye symptoms, patient reportsno sensitivity to light,no discharge of pus from the eyes,no pain in the eyes, andno blurred vision. For severity, patient reportsmild. Francisco Javier Canales MD [address] [place], [place] [address], [address], [place] - [facility] 08/12/2022 14:54:09 OBGyn Episode No OBEpisode recorded.
== END 2025-06-24 09:31 | disposition home or self-care (01) ==
LOC: HO.WFDLDS 09:30
PROVIDERS: PCP Nurse Practitioner Family; Visit Provider Nurse Practitioner Family
DX: E78.00 Pure hypercholesterolemia, unspecified (principal); I10 Essential (primary) hypertension
CPT/HCPCS: 36415; 80061

== ENCOUNTER 2025-06-24 09:30 | Outpatient (AMB) | payer OTHER, SELFPAY ==
--- NOTE | 2025-06-24 09:46 | A.OFFPC_ITS ---
Vital Signs 06/24/25 09:51 Height 5 ft 4 in Weight 169 lb 4 oz BMI 29.0 BP 126/61 Blood Pressure Location Lt brachial Position Sitting Respiration 16 Pulse 71 Pulse Source Pulse Oximeter Temp 97.7 F Temp Source Oral Pulse Oximetry (%) 99 Oxygen Delivery Method Room Air Intake Visit Reasons: 3 mos HTN, HLD Intake Note: patient here for 3 month HTN and HLD Ball Shagger Required: No Is last menstrual period known: No Post menopausal: No Patient : No Allergies No Known Allergies Allergy (Verified 06/24/25 09:50) Tobacco use date assessed: 06/24/25 Fall risk assessment: No Falls in past year Last assessed Fall Risk: 06/24/25 Dental Screening Dental Screen Date: 06/24/25 Did you have a dental visit in the last 12 months?: Yes Did you have a dental problem in the last 6 months where you did not have access to dental care?: No Was dental information given to patient?: Patient has dentist HPI HPI Comments History of Present Illness Details 79-year-old female presents for hyperten waldemar and hyperlipidemia follow-up. She admits to taking her medications as prescribed without adverse reactions. She notes that she has been making healthy lifestyle changes. She offers no complaints and denies acute symptoms at this time. She and fasting lipid panel blood work done before this visit instead of before the visit as planned. [facility] Medical History Osteopenia Diverticulosis Elevated cholesterol HTN (hypertension) Surgical History Hx of colonoscopy Social History (Updated 03/19/25 @ 10:50 by Susan Ugalde MA) Household Members: Spouse Both parents involved: No Caregiver staying overnight: No Housing: Condominium Are you a primary home care administrator to a significant other at home: No Do you presently have visiting nurse or other home services: No 75 years or older and lives alone: No Alcohol intake: current Alcohol intake frequency: does not drink Alcohol type: wine and hard liquor Patient Tobacco Use Status: Former Tobacco user e-Cigarette/Vaping Use: Never Used Second Hand Smoke Exposure: No service: No Current occupational status: employed 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 Current occupational exposures/hazards: No Cognitive needs: No Hearing needs: No Vision needs: No Questionnaire Thrive Questionnaire Date Thrive assessed: 10/04/24 I am a: Patient What is your living situation today?: I have a steady place to live Within the past 12 months, did the food you bought not last and you didn't have the money to get more?: Never true Within the past 12 months, did you worry whether your food would run out before you got money to buy more?: Never true Do you have trouble paying for medicines?: No Do you have trouble getting transportation to medical appointments?: No Do you have trouble paying your heating and electricity bill?: No Do you have trouble taking care of your child, family member or friend?: No Do you have trouble with day-to-day activities such as bathing, preparing meals, shopping, managing finances, etc.?: No Are you currently unemployed and looking for a job?: No Are you interested in more education?: No Please select the resources that you would like help with: None Currently or been in a relationship where the following occur: No concerns reported THRIVE Score: 0 PACO-7 AMB Questionnaire PACO-7 Date PACO - 7 assessed: 10/04/24 Source: Developed by Drs. Olman Ordonez, Sharita Hidalgo, [place] Pierre and colleagues, with an educational ana from [employer]. Review of Systems Const Details: Const Denies chills, Denies fatigue, Denies fever(s), Denies headache(s) and Denies weakness ENT Denies dizziness and Denies headache(s) Card Denies chest pain, Denies lightheadedness, Denies dyspnea and Denies other (Palpitations) Resp Denies cough, Denies dyspnea, Denies wheezing and Denies other ( shortness of breath) GI Denies abdominal pain, Denies melena, Denies hematochezia, Denies change in bowel habits, Denies dyspepsia and Denies nausea Denies hematuria and Denies dysuria Musc Denies abnormal gait, Denies myalgias, Denies arthralgias, Denies numbness and Denies tingling Skin/Breast Denies rash, Denies unusual bruising and Denies wounds Neuro Denies abnormal gait, Denies dizziness, Denies headache(s), Denies memory loss, Denies numbness, Denies Sensory deficit (Neuro), Denies tingling and Denies weakness Psych Denies anxiety, Denies depression, Denies memory loss Endo Denies cold intolerance, Denies fatigue, Denies heat intolerance, Denies polydipsia and Denies polyuria Aller/Immun Denies wheezing Physical exam (Primary Care) Vital Signs: Last Vital Signs Temp 97.7 F 06/24/25 09:51 Pulse 71 06/24/25 09:51 Resp 16 06/24/25 09:51 BP 126/61 06/24/25 09:51 Pulse Ox 99 06/24/25 09:51 Oxygen Delivery Method Room Air 06/24/25 09:51 BMI result Body Mass Index 29.0 Tobacco/Smoking Status: Tobacco use Status Tobacco use date assessed 06/24/25 06/24/25 09:53 Patient Tobacco Use Status Former Tobacco user 06/24/25 09:53 e-Cigarette/Vaping Use Never Used 06/24/25 09:53 Thrive Assessment: Date of Thrive Assessment Date Thrive assessed 10/04/24 06/24/25 09:53 Currently or been in a relationship where the following occur: No concerns reported Const Other: General: no acute distress and well developed Nutritional Appearance: well nourished Orientation/consciousness: patient oriented x3 HENMT Head: Yes normocephalic and Yes atraumatic Eyes General: appearance normal, both eyes and all related structures Pupils: Equal, round and reactive pupils present EOM: EOMs intact bilaterally Resp Effort & Inspection: normal respiratory effort Auscultation: clear to auscultation bilaterally Cardio Rate: regular rate Rhythm: regular rhythm Heart sounds: S1 normal heart sound present, S2 normal heart sound present, no gallops, no murmurs and no rubs GI Palpation (GI): No Abdominal aortic bruit present, Soft to palpation, nontender, No hepatosplenomegaly present and No Rebound tenderness present Auscultation: normal bowel sounds General: Yes no CVA tenderness Back/Spine/Pelvis Back: no CVA tenderness Cervical Spine: cervical ROM normal and No Cervical spine tenderness Thoracic/Lumbar Spine: thoraco-lumbar ROM normal, No pain with thoraco-lumbar ROM, No thoracic spinal tenderness and No lumbar spinal tenderness Extrem General: Yes normal to inspection, No edema and No calf tenderness Skin General: warm and dry. Normal skin color. Normal skin turgor Neuro General: patient oriented x3, gait normal and no focal neuro deficit Cranial nerves: Yes Equal, round and reactive pupils present Cognition (Neuro): normal cognition Gait exam (Neuro): Normal gait present Sensory Exam: No Sensory deficit (Neuro) Psych Appearance: grossly normal Affect: normal affect Attitude: cooperative Thought process: Normal thought process present Coding Level of Care Code Est Pt Level 3 (79500) Diagnoses Essential hypertension I10 High cholesterol E78.00 Assessment & Plan Assessment & Plan (1) Essential hypertension: Code(s): I10 - Essential (primary) hypertension Category: Medical Plan: Blood pressure is 126/61, within goal of less than 140/90. Continue current treatment regimen. Low-sodium diet encouraged. Follow-up in 3 months for transfer of care with a new provider, hypertension, and hyperlipidemia. Return sooner with symptoms or concerns. Verbalized understanding and agreed with the plan. (2) High cholesterol: Code(s): E78.00 - Pure hypercholesterolemia, unspecified Category: Medical Plan: She did not perform blood work for this visit as planned. She had fasting lipid panel blood work done before this visit. Will review results and make changes as needed. Verbalized understanding and agreed with the plan.
[2025-06-24 09:51] VITALS: BP 126/61; PULSE 71; RESP 16; TEMP 36.5; O2SAT 99; BMI 29.0
== END 2025-06-24 10:21 | disposition home or self-care (01) ==
LOC: HO.HMCFM 09:31
PROVIDERS: PCP Nurse Practitioner Family; Visit Provider Nurse Practitioner Family
DX: I10 Essential (primary) hypertension (principal); E78.00 Pure hypercholesterolemia, unspecified

== ENCOUNTER 2025-07-22 14:05 | Outpatient (REF) | payer OTHER, SELFPAY ==
--- NOTE | ~2025-07-22 | CT_ITS ---
EXAMINATION: CT ABDOMEN AND PELVIS WITHOUT CONTRAST CLINICAL INFORMATION: K56.699 - Other intestinal obstruction unspecified COMPARISON: None available. TECHNIQUE: Multidetector volumetric imaging was performed from the superior aspect of the liver through the pubic symphysis. Sagittal and coronal reformatted images were obtained on the technologist's workstation. This CT examination was performed using dose optimization techniques as appropriate, variously including the following: *Automated exposure control *Adjustment of mA and/or kV according to patient size (this includes techniques or standardized protocols for targeted exams where dose is matched to indication/reason for exam; i.e. extremities or head) *Use of iterative reconstruction technique FINDINGS: LUNG BASES: The visualized lung bases are unremarkable. LIVER, GALLBLADDER, AND BILIARY TREE: The liver is normal in size, shape, and attenuation. No focal hepatic lesion or biliary ductal dilatation is present. The gallbladder is unremarkable with no evidence of radiopaque gallstones, gallbladder wall thickening, or obvious pericholecystic inflammatory changes. PANCREAS: Unremarkable. SPLEEN: Unremarkable. ADRENAL GLANDS: Unremarkable. KIDNEYS AND URETERS: The kidneys are normal in size, shape, and attenuation. No hydronephrosis, hydroureter, or calculi seen. No perinephric stranding. BLADDER: Unremarkable. GASTROINTESTINAL TRACT: Again seen are numerous pseudodiverticula in the descending and sigmoid colon. There are also pseudodiverticula in the right colon. There is no gallbladder wall thickening or fat stranding. Oral contrast present through the proximal transverse colon. ABDOMINAL WALL: No significant hernia is appreciated. LYMPH NODES: Normal. VASCULAR: Mild atherosclerotic calcifications PELVIC VISCERA: Uterus is surgically absent. OSSEOUS STRUCTURES: Mild degenerative disc disease is present in the thoracic and lower lumbar spine There is nonsegmentation of anterior T9-T10. There is sclerosis and degenerative cystic change in the pubic symphysis. Mild to moderate degenerative changes are present in both hips. CT/CT abdomen pelvis wo IV con IMPRESSION: No evidence of bowel obstruction. Diverticulosis in the right colon as well as the descending and sigmoid colon without evidence of infection. Fleischner guidelines were followed. Electronically signed by: Marquez Morales MD 07/22/2025 04:52 PM [facility]
[2025-07-22] MEDS: Barium Sulfate Oral (Vanilla) 450 ML ORAL.SUSP 900 ML PO (16:28)
--- OUTSIDE RECORDS SUMMARY | 2025-07-22 20:32 | XMS_ITS | Data Portability ---
Author Organization [facility] Pineda s, [address] Address [address] [place] [address] Assessment No assessment recorded. Plan of Treatment Reminders Order Date Submit Date Provider Last Modified By Organization Details Last Modified Time Details Appointments None recorded. Lab None recorded. Referral None recorded. Procedures None recorded. Surgeries None recorded. Imaging None recorded. Medication Orders Polytrim 10,000 unit-1 mg/mL eye drops 2022 023 [facility] #[id number], [address] [facility] , [place], [address], 14:52:34 Patient TargetsNo targets recorded. Patient Instructions Encounter Date Encounter Id Patient Instructions Last Modified By Organization Details Last Modified Time 08/12/2022 [id number] corneal scratches: care instructions Not available 08/12/2022 [...] mass index (BMI) Body weight Oxygen saturation Pain severity - 0-10 verbal numeric rating [Score] - Reported Heart rate Respiratory rate Body temperature Systolic And Diastolic Provider Name and Address Organization Details Last Updated DateTime 3 160.02 cm 32.8 kg/m2 45547.5 9 g 97 % 2 74 /min 18 /min 97.8 [degF] 137/78 mm[Hg] Amada Chacon [employer] 14:33:30 Social History Question Answer Notes LastModified by Roojoom Details LastModified Time Tobacco Smoking Status Never Smoker Amada simmons [facility] 08/12/2022 14:34:15 Have You Had Direct Contact, Or Contact During Intimacy, With Monkeypox Rash, Scabs, Or Body Fluids From A Person With Monkeypox? No Information not available 08/12/2022 Have You Recently Traveled Abroad? No Information not available 08/12/2022 Sex: Unknown Functional Status Question Answer Note LastModified by Roojoom Details LastModified Time Do you use any [...] Immunizations Vaccine Type Date Status Note Provider Mo salazar and Address Organization Details Recorded Time COVID-19, [...] ICD10 Code Diagnosis IMO Codes Diagnosis Note [id number] [address] [place] [address] 09/08/2017 10:52:34 09/08/2017 11:43:22 [id number] [address] [place] [address] 04/07/2018 10:19:26 04/07/2018 11:19:50 [id number] [address] [place] [address] 08/03/2019 11:14:57 08/03/2019 12:20:39 [id number] [address] [place] [address] 01/29/2022 10:37:54 01/29/2022 12:06:19 [id number] [address] [place] [address] 11/20/2018 19:29:02 11/21/2018 08:17:51 [id number] [address] [place] [address] 06/05/2015 11:25:36 06/05/2015 11:57:48 [id number] [address] [place] [address] 11/16/2018 12:51:53 11/16/2018 13:13:41 [id number] [address] [place] [address] 12/05/2017 15:36:31 12/05/2017 16:32:06 [id number] Francisco Javier Canales MD [address] [place] [address] 08/12/2022 14:14:43 08/12/2022 14:55:33 Abrasion of left cornea [id number] S05.02XA Health Concerns Section Related Observation LastModified by Organization Detai ls LastModified Time None Recorded Concern Status LastModified by Organization Details LastModified Time None Recorded Advance Directives Directive None Recorded Payers Insurance Date Sequence Insurance Name Policy Number Policy Jennings Covered Member ID Jennings Member ID Guarantor Name 08/12/2022 1 [facility] (O) [id number] Brian Lizama [id number] Thuy Lizama Notes Date Note Type Note Provider Name and Address Organization Details Recorded Time 08/12/2022 text/html Eye problemsRepo rted by PatientHPIFor location, patient reportsleft. For eye symptoms, patient reportsno sensitivity to light,no discharge of pus from the eyes,no pain in the eyes, andno blurred vision. For severity, patient reportsmild. Francisco Javier Canales MD [address] [place], [place] [address], [address], [place] - [facility] 08/12/2022 14:54:09 OBGyn Episode No OBEpisode recorded.
== END 2025-07-22 14:06 | disposition home or self-care (01) ==
LOC: HO.CT 14:05
PROVIDERS: PCP Nurse Practitioner Family; Visit Provider Surgery
DX: K56.699 Other intestinal obstruction unspecified as to partial versus complete obstruction (principal)
CPT/HCPCS: 74176

== ENCOUNTER → 2025-07-22 14:06 | Outpatient (BNV) | payer OTHER, SELFPAY | PROVIDERS: PCP Nurse Practitioner Family; Visit Provider Radiology Diagnostic Radiology | DX: K57.30 Diverticulosis of large intestine without perforation or abscess without bleeding (principal) | CPT/HCPCS: 74176 ==

== ENCOUNTER 2025-07-29 10:39 | Outpatient (AMB) | payer OTHER, SELFPAY ==
[2025-07-29 10:46] VITALS: BP 126/62; PULSE 78; BMI 29.2
--- NOTE | 2025-07-29 10:46 | A.OFFVIS_ITS ---
Vital Signs 07/29/25 10:46 Height 5 ft 4 in Weight 170 lb BMI 29.2 BP 126/62 Blood Pressure Location Rt brachial Position Sitting Pulse 78 Intake Visit Reasons: s/p CT 07/22/25 Intake Note: Patient presents for a follow-up to discuss Abd/pelvis Ct-Scan. ( 07/22/25) Pt c/o; no concerns. Reports no changes in medical hx since last visit. Political Aide Required: No Accompanied by: Self / Same As Patient Allergies No Known Allergies Allergy (Verified 07/29/25 10:50) Medication List - Last Reconciled 07/29/25 by Leroy Mcdowell MD barium sulfate 2%(w/v) (Readi-Cat 2) 450 mL PO .twice cholecalciferol (vitamin D3) 25 mcg PO DAILY 90 days lisinopril 5 mg PO DAILY 90 days HPI HPI s/p CT 07/22/25: Details: She is here for follow-up for appeared to have been a narrowing of the sigmoid colon seen on colonoscopy She denies having symptoms. I had seen her sometime last month and I would order for a CAT scan. She currently denies any problems with abdominal pain, or bowel movements. She says she feels well overall. She has good oral intake. She denies any weight loss. [facility] Medical History Osteopenia Diverticulosis Elevated cholesterol HTN (hypertension) Surgical History Hx of colonoscopy Social History Household Members: Spouse Both parents involved: No Caregiver staying overnight: No Housing: Condominium Are you a primary patient care secretary to a significant other at home: No Do you presently have visiting nurse or other home services: No 75 years or older and lives alone: No Alcohol intake: current Alcohol intake frequency: does not drink Alcohol type: wine and hard liquor Patient Tobacco Use Status: Former Tobacco user e-Cigarette/Vaping Use: Never Used Second Hand Smoke Exposure: No service: No Current occupational status: employed Current occupation: [employer] Current occupational exposures/hazards: No Cognitive needs: No Hearing needs: No Vision needs: No Review of Systems Const Denies chills and Denies fever(s) Card Denies chest pain, Denies dyspnea and Denies dyspnea on exertion Resp Denies cough, Denies dyspnea and Denies dyspnea on exertion GI Denies hematochezia and Denies change in bowel habits Denies hematuria Musc Denies back pain and Denies limited range of motion Neuro Denies focal weakness and Denies convulsions Psych Denies depression and Denies mood swings Physical Exam Vital Signs: Last Vital Signs Pulse 78 07/29/25 10:46 BP 126/62 07/29/25 10:46 BMI result Body Mass Index 29.2 Const General: comfortable and no acute distress Resp Effort & Inspection: normal respiratory effort Cardio Rate: regular rate GI Inspection: No distended Palpation (GI): Soft to palpation, not firm, nontender and no guarding Assessment & Plan Assessment & Plan (1) Abnormal colonoscopy: Comment: Reviewed severe diverticulosis possible SCAD internal hemorrhoids colon polyp Plan: High fiber diet leaflet Avoid straining at stool, epsom salts and sitz bath, anusol supps or cream CT colonography\ might consider trial of meslamine enemas for few months and repeat colonoscopy as well CT/CT colonography IMPRESSION: Limited study. Large amount material within the colon precludes assessment for polyps or small/moderate sized masses. Colonic diverticulosis. Code(s): R93.3 - Abnormal findings on diagnostic imaging of other parts of digestive tract Category: Medical Plan: She has this narrowing of the sigmoid on colonoscopy. This is likely from diverticular disease. She denies any symptoms however. She denies any abdominal pain. She has good oral intake. She continues to have regular bowel movements without any changes in bowel habits. I explained to her therefore that it does not appear that she needs any urgent surgical intervention. I did explain to her what symptoms to look out for for her sigmoid narrowing I will monitor her closely in the office. I will see her in about 6 weeks. She is comfortable with the plan. She stated that she would like to avoid any surgical intervention as much as possible. Coding Level of Care Code Est Pt Level 3 (45696) Diagnoses Abnormal colonoscopy R93.3
== END 2025-07-29 11:29 | disposition home or self-care (01) ==
LOC: HO.HGS 10:40
PROVIDERS: PCP Nurse Practitioner Family; Visit Provider Surgery
DX: R93.3 Abnormal findings on diagnostic imaging of other parts of digestive tract (principal)
CPT/HCPCS: 99213